=== PATIENT | female | born 1960 | race Caucasian/White ===

== ENCOUNTER 2016-08-24 09:56 | Inpatient (IN) | payer OTHER ==
[~2016-08-24] VITALS: Ht 157.5 cm; Wt 92.3 kg
[2016-08-24] VITALS (10 sets, daily range): BP systolic 141–164; BP diastolic 73–93; PULSE 87–111; RESP 16–20; TEMP 97.3–97.6; O2SAT 91–95; Ht 157.5 cm; Wt 92.3 kg
[~2016-08-24 09:56] MED LIST: CALC-586 PO; CITA-49 PO; LOSA50TA52 PO; OMEP20CA10 PO; PRAV40TA46 PO; [UNRECOGNIZED DRUG - CODE] PO
--- NOTE | 2016-08-24 10:00 | NUR ---
PROVIDER DR. VICTOR AT BEDSIDE FOR EXAM.
--- OUTSIDE RECORDS SUMMARY | 2016-08-24 10:02 | XMS REPORT | Referral Summary ---
Author Author [facility] Organization [facility] Address Unknown Phone Unavailable Care Team Providers Care Machine Steak Tenderizer Name Role Phone Alicia Sommers Primary Care Physician [phone] Encounter [facility] [id number] Date(s): 07/09/16 - 07/09/16 [facility] [address] [place] [id number] Discharge Diagnosis: Anxiety Discharge Diagnosis: Depression Discharge Diagnosis: Well adult exam Discharge Diagnosis: Need for hepatitis A vaccination Discharge Diagnosis: CELESTINA on CPAP Discharge Diagnosis: Impaired fasting blood sugar Discharge Diagnosis: Hyperlipidemia Discharge Disposition: 01-Home or Self Care Attending Physician: Jeremias Sommers MD Admitting Physician: Jeremias Sommers MD Vital Signs Most recent to 1 oldest [Reference Range]: Temperature Tympanic 36.4 degC [36.6-38.1 degC] *LOW* (07/09/16 7:43 AM) Peripheral Pulse 80 bpm Rate [60-100 bpm] (07/09/16 7:43 AM) Blood Pressure 148/90 mmHg [90-140/60-90 mmHg] *HI* (07/09/16 7:43 AM) Problem List Condition Effective Dates Status Health Status Informant Allergic Active rhinitis(Confirmed) Encephalitis(Confirm Active ed) Anxiety(Confirmed) Active History of broken Active leg(Confirmed) History of Active UTI(Confirmed) Hypertension(Confirm Active ed) IBS(Confirmed) Active Ear Active infection(Confirmed) Menopausal Resolved symptoms(Confirmed) Hyperlipidemia(Confi Active rmed) Obstructive sleep Active apnea(Confirmed) Overweight(Confirmed Active ) Depression(Confirmed Active ) Skin tags(Confirmed) Active Thyroid Resolved disease(Confirmed) Chicken Active pox(Confirmed) Allergies, Adverse Reactions, Alerts Substance Reaction Severity Status acetaminophen Hives Active codeine Hives Active Latex Active levofloxacin Hives Active meperidine Hives Active morphine Hives Active oxyCODONE Hives Active Medications Calcium 600+D 2 tabs, Oral, Daily, 0 Refill(s) Start Date: 11/05/13 Status: Ordered escitalopram 20 mg oral tablet 20 mg 1 tabs, Oral, Daily, # 90 tabs, 3 Refill(s), Pharmacy: [id number] [id number], 1 tabs Oral Daily,x90 days Start Date: 10/28/15 Stop Date: 10/22/16 Status: Ordered estradiol 1 mg oral tablet See Instructions, TAKE 1 TABLET BY MOUTH DAILY, # 90 tabs, 3 Refill(s), eRx: [facility] [id number] Start Date: 07/09/16 Status: Ordered LORazepam 0.5 mg oral tablet 0.5 mg 1 tabs, Oral, q6hr, as needed for anxiety, [facility] pharmacy, # 30 tabs , 0 Refill(s) Start Date: 01/04/16 Status: Ordered losartan 100 mg oral tablet See Instructions, 1 TABS ORAL DAILY,INSTR:PT IS DUE FOR APPOINTMENT NO MORE REFILLS UNTIL SEEN, # 90 tabs, 3 Refill(s), Pharmacy: [facility] [id number] , 1 TABS ORAL DAILY,INSTR:PT IS DUE FOR APPOINTMENT NO MORE REFILLS UNTIL SEEN Start Date: 10/19/14 Status: Ordered omeprazole 20 mg oral delayed release capsule See Instructions, TAKE 1 CAPSULE BY MOUTH DAILY, # 90 caps, eRx: [facility] [id number] Start Date: 05/28/16 Status: Ordered pravastatin 40 mg oral tablet See Instructions, TAKE 1 TABLET BY MOUTH DAILY, # 90 tabs, 3 Refill(s), eRx: [facility] [id number] Start Date: 07/09/16 Status: Ordered propylthiouracil 50 mg oral tablet 50 mg 1 tabs, Oral, Daily, 0 Refill(s) Start Date: 11/05/13 Status: Ordered Tylenol Extra Strength 1,000 mg, Oral, BID, as needed for right wrist pain, 0 Refill(s) Start Date: 01/27/16 Status: Ordered Results Chemistry Most recent to 1 oldest [Reference Range]: Chol [0-199 mg/dL] 198 mg/dL (07/09/16 9:20 AM) Trig [0-149 mg/dL] 156 mg/dL *HI* (07/09/16 9:20 AM) HDL [40-84 mg/dL] 56 mg/dL (07/09/16 9:20 AM) LDL [0-130 mg/dL] 111 mg/dL (07/09/16 9:20 AM) VLDL Cholesterol 31 mg/dL [0-28 mg/dL] *HI* (07/09/16 9:20 AM) Cardiac Risk 3.5 [0.0-5.0] (07/09/16 9:20 AM) Hgb A1c [4.1-5.6 %] 5.9 % *HI* (07/09/16 9:20 AM) eAvg Glucose 122.6 mg/dL (07/09/16 9:20 AM) Immunizations Given and Recorded Vaccine Date Status Refusal Reason hepatitis A adult vaccine 07/09/16 Given influenza virus vaccine, inactivated 12/03/11 Recorded influenza virus vaccine, inactivated 01/16/11 Recorded influenza virus vaccine, live 02/18/13 Given influenza virus vaccine, live 02/08/12 Given Procedures Procedure Date Related Diagnosis Body Site Collection of venous blood by venipuncture 07/09/16 Colonoscopy 2006 Esophagogastroduodenoscopy 2006 Kendra fundoplication 1999 Cholecystectomy Hernia repair Hysterectomy Removal of hardware (L) [place]ia Social History Social History Type Response Smoking Status Never smoker Assessment and Plan Extracted from: Title: Ambulatory Patient Education Author: Jeremias Sommers MD Date: 07/09 Preventive Medicine Health Maintenance, Female Adopting a healthy lifestyle and getting preventive care can go a long way to promote health and wellness. Talk with your health care provider about what schedule of regular examinations is right for you. This is a good chance for you to check in with your provider about disease prevention and staying healthy. In between checkups, there are plenty of things you can do on your own. Experts have done a lot of research about which lifestyle changes and preventive measures are most likely to keep you healthy. Ask your health care provider for more information. WEIGHT AND DIET Eat a healthy diet Be sure to include plenty of vegetables, fruits, low-fat dairy products, and lean protein. Do not eat a lot of foods high in solid fats, added sugars, or salt. Get regular exercise. This is one of the most important things you can do for your health. Most adults should exercise for at least 150 minutes each week. The exercise should increase your heart rate and make you sweat (moderate-intensity exercise). Most adults should also do strengthening exercises at least twice a week. This is in addition to the moderate-intensity exercise. Maintain a healthy weight Body mass index (BMI) is a measurement that can be used to identify possible weight problems. It estimates body fat based on height and weight. Your health care provider can help determine your BMI and help you achieve or maintain a healthy weight. For females 20 years of age and older: A BMI below 18.5 is considered underweight. A BMI of 18.5 to 24.9 is normal. A BMI of 25 to 29.9 is considered overweight. A BMI of 30 and above is considered obese. Watch levels of cholesterol and blood lipids You should start having your blood tested for lipids and cholesterol at 20 years of age, then have this test every 5 years. You may need to have your cholesterol levels checked more often if: Your lipid or cholesterol levels are high. You are older than 50 years of age. You are at high risk for heart disease. CANCER SCREENING Lung Cancer Lung cancer screening is recommended for adults 5580 years old who are at high risk for lung cancer because of a history of smoking. A yearly low-dose CT scan of the lungs is recommended for people who: Currently smoke. Have quit within the past 15 years. Have at least a [id number] history of smoking. A pack year is smoking an average of one pack of cigarettes a day for 1 year. Yearly screening should continue until it has been 15 years since you quit. Yearly screening should stop if you develop a health problem that would prevent you from having lung cancer treatment. Breast Cancer Practice breast self-awareness. This means understanding how your breasts normally appear and feel. It also means doing regular breast self-exams. Let your health care provider know about any changes, no matter how small. If you are in your 20s or 30s, you should have a clinical breast exam ( CBE) by a health care provider every 13 years as part of a regular health exam. If you are 40 or older, have a CBE every year. Also consider having a breast X-ray (mammogram) every year. If you have a family history of breast cancer, talk to your health care provider about genetic screening. If you are at high risk for breast cancer, talk to your health care provider about having an MRI and a mammogram every year. Breast cancer gene (BRCA) assessment is recommended for women who have family members with BRCA-related cancers. BRCA-related cancers include: Breast. Ovarian. Tubal. Peritoneal cancers. Results of the assessment will determine the need for genetic counseling and BRCA1 and BRCA2 testing. Cervical Cancer Your health care provider may recommend that you be screened regularly for cancer of the pelvic organs (ovaries, uterus, and vagina). This screening involves a pelvic examination, including checking for microscopic changes to the surface of your cervix (Pap test). You may be encouraged to have this screening done every 3 years, beginning at age 21. For women ages 3065, health care providers may recommend pelvic exams and Pap testing every 3 years, or they may recommend the Pap and pelvic exam, combined with testing for human papilloma virus (HPV), every 5 years. Some types of HPV increase your risk of cervical cancer. Testing for HPV may also be done on women of any age with unclear Pap test results. Other health care providers may not recommend any screening for non women who are considered low risk for pelvic cancer and who do not have symptoms. Ask your health care provider if a screening pelvic exam is right for you. If you have had past treatment for cervical cancer or a condition that could lead to cancer, you need Pap tests and screening for cancer for at least 20 years after your treatment. If Pap tests have been discontinued, your risk factors (such as having a new sexual partner) need to be reassessed to determine if screening should resume. Some women have medical problems that increase the chance of getting cervical cancer. In these cases, your health care provider may recommend more frequent screening and Pap tests. Colorectal Cancer This type of cancer can be detected and often prevented. Routine colorectal cancer screening usually begins at 50 years of age and continues through 75 years of age. Your health care provider may recommend screening at an earlier age if you have risk factors for colon cancer. Your health care provider may also recommend using home test kits to check for hidden blood in the stool. A small camera at the end of a tube can be used to examine your colon directly (sigmoidoscopy or colonoscopy). This is done to check for the earliest forms of colorectal cancer. Routine screening usually begins at age 50. Direct examination of the colon should be repeated every 510 years through 75 years of age. However, you may need to be screened more often if early forms of precancerous polyps or small growths are found. Skin Cancer Check your skin from head to toe regularly. Tell your health care provider about any new moles or changes in moles, especially if there is a change in a mole's shape or color. Also tell your health care provider if you have a mole that is larger than the size of a pencil eraser. Always use sunscreen. Apply sunscreen liberally and repeatedly throughout the day. Protect yourself by wearing long sleeves, pants, a wide-brimmed hat, and sunglasses whenever you are outside. HEART DISEASE, DIABETES, AND HIGH BLOOD PRESSURE High blood pressure causes heart disease and increases the risk of stroke. High blood pressure is more likely to develop in: People who have blood pressure in the high end of the normal range (130 139/8589 mm Hg). People who are overweight or obese. People who are . If you are 1839 years of age, have your blood pressure checked every 3 5 years. If you are 40 years of age or older, have your blood pressure checked every year. You should have your blood pressure measured twiceonce when you are at a hospital or clinic, and once when you are not at a hospital or clinic. Record the average of the two measurements. To check your blood pressure when you are not at a hospital or clinic, you can use: An automated blood pressure machine at a pharmacy. A home blood pressure monitor. If you are between 55 years and 79 years old, ask your health care provider if you should take aspirin to prevent strokes. Have regular diabetes screenings. This involves taking a blood sample to check your fasting blood sugar level. If you are at a normal weight and have a low risk for diabetes, have this test once every three years after 45 years of age. If you are overweight and have a high risk for diabetes, consider being tested at a younger age or more often. PREVENTING INFECTION Hepatitis B If you have a higher risk for hepatitis B, you should be screened for this virus. You are considered at high risk for hepatitis B if: You were born in a country where hepatitis B is common. Ask your health care provider which countries are considered high risk. Your parents were born in a high-risk country, and you have not been immunized against hepatitis B (hepatitis B vaccine). You have HIV or AIDS. You use needles to inject street drugs. You live with someone who has hepatitis B. You have had sex with someone who has hepatitis B. You get hemodialysis treatment. You take certain medicines for conditions, including cancer, organ transplantation, and autoimmune conditions. Hepatitis C Blood testing is recommended for: Everyone born from 1945 through 1965. Anyone with known risk factors for hepatitis C. Sexually transmitted infections (STIs) You should be screened for sexually transmitted infections (STIs) including gonorrhea and chlamydia if: You are sexually active and are younger than 24 years of age. You are older than 24 years of age and your health care provider tells you that you are at risk for this type of infection. Your sexual activity has changed since you were last screened and you are at an increased risk for chlamydia or gonorrhea. Ask your health care provider if you are at risk. If you do not have HIV, but are at risk, it may be recommended that you take a prescription medicine daily to prevent HIV infection. This is called pre- exposure prophylaxis (PrEP). You are considered at risk if: You are sexually active and do not regularly use condoms or know the HIV status of your partner(s). You take drugs by injection. You are sexually active with a partner who has HIV. Talk with your health care provider about whether you are at high risk of being infected with HIV. If you choose to begin PrEP, you should first be tested for HIV. You should then be tested every 3 months for as long as you are taking PrEP. If you are premenopausal and you may become , ask your health care provider about preconception counseling. If you may become , take 400 to 800 micrograms (mcg) of folic acid every day. If you want to prevent , talk to your health care provider about control (contraception). OSTEOPOROSIS AND MENOPAUSE Osteoporosis is a disease in which the bones lose minerals and strength with aging. This can result in serious bone fractures. Your risk for osteoporosis can be identified using a bone density scan. If you are 65 years of age or older, or if you are at risk for osteoporosis and fractures, ask your health care provider if you should be screened. Ask your health care provider whether you should take a calcium or vitamin D supplement to lower your risk for osteoporosis. Menopause may have certain physical symptoms and risks. Hormone replacement therapy may reduce some of these symptoms and risks. Talk to your health care provider about whether hormone replacement therapy is right for you. HOME CARE INSTRUCTIONS Schedule regular health, dental, and eye exams. Stay current with your immunizations. Do not use any tobacco products including cigarettes, chewing tobacco, or electronic cigarettes. If you are , do not drink alcohol. If you are , limit how much and how often you drink alcohol. Limit alcohol intake to no more than 1 drink per day for non women. One drink equals 12 ounces of beer, 5 ounces of wine, or 1 ounces of hard liquor. Do not use street drugs. Do not share needles. Ask your health care provider for help if you need support or information about quitting drugs. Tell your health care provider if you often feel depressed. Tell your health care provider if you have ever been abused or do not feel safe at home. This information is not intended to replace advice given to you by your health care provider. Make sure you discuss any questions you have with your health care provider. Document Released: 11/19/2011 Document Revised: 05/27/2015 Document Reviewed: [employer] Patient Education 2016 [employer] No follow up information was provided. Extracted from: Title: Female Physical Author: Jeremias Sommers MD Date: 07/09/16 Impression and Plan Diagnosis Well adult exam ([id number] Z00.00, Discharge, Medical). Hyperlipidemia ([id number] E78.2, Discharge, Medical). Depression (MEK59-QA F33.1, Discharge, Medical). Anxiety (RWM55-BK F41.1, Discharge, Medical). CELESTINA on CPAP ([id number] G47.33, Discharge, Medical). Need for hepatitis A vaccination ([id number] Z23, Discharge, Medical). Impaired fasting blood sugar (SYI46-BM R73.01, Discharge, Medical). Plan: 1) Healthy diet and daily exercise helps most things. 2) Continue your current meds. 3) Hepatitis A Vaccine #1 given today. 4) See me in 6 months and as needed. 5) Fasting lab ordered today. 6) Schedule screening mammograms at the hospital.. Orders Orders (Selected) Outpatient Orders Ordered Periodic Comp Preventive Med 40 to 64 years Est [id number]: hepatitis A adult vaccine 1440 units/mL preservative free intramuscular suspension: 1 mL, IntraMuscular, Once Future (On Hold) Fasting Lipid Profile: Hgb A1c: . Dx/Order Association Plan: Diagnosis: Anxiety Comment: Diagnosis: Depression Comment: Diagnosis: Hyperlipidemia Comment: Diagnosis: Impaired fasting blood sugar Comment: Diagnosis: Need for hepatitis A vaccination Comment: Ordered: hepatitis A adult vaccine 1440 units/mL preservative free intramuscular suspension; 1 mL, IntraMuscular, Once, First Dose: 07/09/16 9 :00:00 SUPERVISOR LATHING, Stop Date: 07/09/16 9:00:00 SUPERVISOR LATHING, Form: Vial Diagnosis: CELESTINA on CPAP Comment: Diagnosis: Well adult exam Comment: Ordered: hepatitis A adult vaccine 1440 units/mL preservative free intramuscular suspension; 1 mL, IntraMuscular, Once, First Dose: 07/09/16 9 :00:00 SUPERVISOR LATHING, Stop Date: 07/09/16 9:00:00 SUPERVISOR LATHING, Form: Vial Periodic Comp Preventive Med 40 to 64 years Est [id number]; 07/09/16 8:38:00 SUPERVISOR LATHING, Well adult exam Diagnosis: Well adult exam Comment: Diagnosis: Impaired fasting blood sugar Comment: Diagnosis: Well adult exam Comment: Diagnosis: Hyperlipidemia Comment: End of Orders .
--- OUTSIDE RECORDS SUMMARY | 2016-08-24 10:02 | XMS REPORT | Continuity of Care Document ---
Author Author [facility] Organization [facility] Address Unknown Phone Unavailable Support Name Relationship Address Phone STEPHEN HOWARD FACS, MD Caregiver [address] [place] [address] [place] [address] Unavailable KELLEY VASQUEZ MD Caregiver [address] [place] [address] [place] [address] Unavailable ATTDEMAR CANTOR Next Of Kin [address] [place] [address] C Insurance Providers Guarantor Mally Murillo Address [address] [place], [place] [id number] Email DENIED [facility] Policy Number [id number] Subscriber's Name Demar Murillo Relationship 01 Spouse Group Number [id number] Advance Directives Directive Response Recorded Date/Time Ordered Resuscitation Status Full Code 07/19/16 3:36pm Resuscitation Documents on File No 07/20/16 6:54am DPOA for Healthcare Only No 07/20/16 6:54am Living Will No 07/20/16 6:54am Problems No problem information available. Medications Current Home Medications Medication Dose Units Route Directions Days Qty Instructions Start Date Calcium Carbonate/Vitamin D3 (Calcium + D 600 Mg Tablet) 1 Tab Tablet 1 Tab Oral Daily 02/22/10 Citalopram Hydrobromide (Celexa) 20 Mg Tablet 20 Mg Oral Daily Losartan Potassium 50 Mg Tablet 50 Mg Oral Daily 07/19/16 Omeprazole 20 Mg Capsule. 20 Mg Oral Before Breakfast Take 1 capsule, by mouth, one time a day (before breakfast). 07/19/16 Pravastatin Sodium 40 Mg Tablet 40 Mg Oral Bedtime 02/22/10 Propylthiouracil 50 Mg Tablet 50 Mg Oral Daily 02/22/10 Social History Social History Problem Response Recorded Date/Time Onset Date Status Reason for Hospitalization EGD colonoscopy 07/20/2016 9:59am Not Applicable Not Applicable Chewing Tobacco Status No 07/19/2016 10:06am Not Applicable Not Applicable Hx Substance Use No 02/21/2010 7:55am Not Applicable Not Applicable Hx Alcohol Use Y OCC 02/21/2010 7:55am Not Applicable Not Applicable Has the pt used tobacco in the last 12 months No 07/19/2016 10:06am Not Applicable Not Applicable Query Response Start Date Stop Date Smoking Status Never smoker Hospital Discharge Instructions Instructions: Care Instructions: I was in the hospital because (patient own words): "colonoscopy and egd" Discharge Diet: As Tolerated Discharge Activity: Do NOT drive today Follow Up Appointments: Follow up with Dr. Howard as needed. Pending Lab / Results: No Pending Lab Patient Instructions: Letter with recommendations will be mailed in about 2 weeks. Expected Signs/Symptoms: None Notify Physician If: Call physician if temperature is GREATER than 101.5, severe abdominal pain or severe rectal bleeding. During Business Hours:: Call [phone] After Business Hours:: Call [phone] (hospital) Pain Management/Treatment: Call Dr. Howard if increasing abdominal pain Wound/Incision Care: N/A Condition at time of discharge: Good Plan of Care Discharge Date 07/20/16 10:35am Instructions/Education Provided [facility] Prescriptions See Medication Section Functional Status Query Response Date Recorded Ability to complete ADL's impeded by No change July 20, 2016 6:54am Allergies, Adverse Reactions, Alerts Allergen Type Severity Reaction Status Last Updated meperidine HCl Allergy Intermediate ITCH,RED Active 07/20/16 oxycodone HCl Allergy Intermediate HIVES Active 07/20/16 Morphine Allergy Intermediate RED,ITCHING Active 07/20/16 Codeine Allergy Intermediate HIVES Active 07/20/16 Acetaminophen Allergy Intermediate HIVES Active 07/20/16 Methimazole Allergy Intermediate HIVES,ITCH Active 07/20/16 Latex Allergy Intermediate PINK EYE, ASTHMA LIKE REACTION, SOA Active 08/03 Immunizations Query Response on File Recorded Date/Time Hx Influenza Vaccination Y 03/2802/21/10 7:55am Hx Pneumococcal Vaccination No 02/21/10 7:55am Hx Influenza Vaccination Y 03/2802/21/10 7:55am Vital Signs Acute Vital Signs Vital Response Date/Time Temperature (Fahrenheit) 98.4 deg F (96.8 - 99.1) 07/20/2016 10:21am Temperature (Calculated Celsius) 36.40903 degrees C (36.0 - 37.3) 07/20/2016 10:21am Temperature Source Temporal 07/20/2016 10:21am Pulse Rate (adult) 82 bpm (60 - 100) 07/20/2016 10:21am Respiratory Rate 18 breaths/min (10 - 20) 07/20/2016 10:21am O2 Sat by Pulse Oximetry 94 % (90 - 100) 07/20/2016 10:21am Oxygen Delivery Method Room Air 07/20/2016 10:21am Blood Pressure 151/65 mm Hg 07/20/2016 10:21am Blood Pressure Source Automatic Cuff 07/20/2016 10:21am Height (Feet) 5 feet 07/20/2016 6:50am Height (Inches) 2.00 inches 07/20/2016 6:50am Weight (Kilograms) 92.500 kg 07/20/2016 6:50am Body Mass Index (BMI) 37.3 07/20/2016 6:50am Results Laboratory Results Test Name Result Units Flags Reference Collection Date/Time Result Date/ Time Comments Free Thyroxine 0.85 NG/DL 0.78-2.19 07/06/2016 10:52am 07/09/2016 1: 05am Thyroid Stimulating Hormone (TSH) 0.83 MIU/L 0.47-4.68 07/06/2016 10: 52am 07/06/2016 11:37am Procedures Procedure Status Date Provider(s) Routine venipuncture Completed 07/06/16 Assay of free thyroxine Completed 07/06/16 Assay thyroid stim hormone Completed 07/06/16 Colonoscopy Completed 07/20/16 STEPHEN HOWARD MD, JOSE, MARKELS Esophagogastroduodenoscopy (EGD) with closed biopsy Completed 07/20/16 STEPHEN HOWARD MD, MARKEL GARCIAS Encounters Encounter Location Arrival/Admit Date Discharge/Depart Date Attending Provider Departed [facility] 07/20/16 6:28am 07/20/16 10 :35am STEPHEN HOWARD FACS, MD Registered [facility] 07/18/16 8:46am [facility] 07/06/16 10:39am MARINE KOWALSKI MD
--- OUTSIDE RECORDS SUMMARY | 2016-08-24 10:02 | XMS REPORT | Referral Summary ---
Author Author [facility] [place] Organization [facility] [place] Address Unknown Phone Unavailable Care Team Providers Care Telehealth Nurse Educator Name Role Phone Alicia Sommers Primary Care Physician [phone] Encounter VC Date(s): 02/24/16 - 02/24/16 [facility] [place] [address] [place], [place] [address] Discharge Disposition: 01-Home or Self Care Attending Physician: Facundo Chilel MD Admitting Physician: Facundo Chilel MD Referring Physician: Facundo Chilel MD Vital Signs No data available for this section Problem List Condition Effective Dates Status Health [...] morphine Hives Active oxyCODONE Hives Active Medications Nathaniel Aspirin 81 mg, Oral, Daily, 0 Refill(s) Start Date: 11/05/13 Status: Ordered Calcium 600+D 2 tabs, Oral, Daily, 0 Refill(s) Start Date: 11/05/13 Status: Ordered escitalopram 20 mg oral tablet 20 mg 1 tabs, Oral, Daily, # 90 tabs, 3 Refill(s), Pharmacy: [id number], 1 tabs Oral Daily,x90 days Start Date: 10/28/15 Stop Date: 10/22/16 Status: Ordered estradiol 1 mg oral tablet 1 mg 1 tabs, Oral, Daily, # 30 tabs, 2 Refill(s), other reason (Rx), TAKE 1 TABLET BY MOUTH EVERY DAY. Start Date: 01/27/16 Status: Ordered LORazepam 0.5 mg oral tablet 0.5 mg 1 tabs, Oral, q6hr, as needed for anxiety, [facility], # 30 tabs , 0 Refill(s) Start Date: 01/04/16 Status: Ordered losartan 100 mg oral tablet See Instructions, 1 TABS ORAL DAILY,INSTR:PT IS DUE FOR APPOINTMENT NO MORE REFILLS UNTIL SEEN, # 90 tabs, 3 Refill(s), Pharmacy: [facility] [id number] , 1 TABS ORAL DAILY,INSTR:PT IS DUE FOR APPOINTMENT NO MORE REFILLS UNTIL SEEN Start Date: 10/19/14 Status: Ordered [place] 5 mg-325 mg oral tablet 1 tabs, Oral, Daily, as needed for right wrist pain, 0 Refill(s) Start Date: 01/27/16 Status: Ordered pravastatin 40 mg oral tablet See Instructions, TAKE 1 TABLET BY MOUTH DAILY, # 90 tabs, eRx: [email or web address] [id number], TAKE 1 TABLET BY MOUTH DAILY Start Date: 01/17/16 Status: Ordered propylthiouracil 50 mg oral tablet 50 mg 1 tabs, Oral, Daily, 0 Refill(s) Start Date: 11/05/13 Status: Ordered Tylenol Extra Strength 1,000 mg, Oral, TID, as needed for right wrist pain, 0 Refill(s) Start Date: 01/27/16 Status: Ordered Results No data available for this section Immunizations Vaccine Date Refusal Reason influenza virus vaccine, inactivated 12/03/11 influenza virus vaccine, inactivated 01/16/11 influenza virus vaccine, live 02/18/13 influenza virus vaccine, live 02/08/12 Procedures Procedure Date Related Diagnosis Body Site Colonoscopy 2007 Cholecystectomy Esophagogastroduodenoscopy Hernia repair Hysterectomy Removal of hardware (L) [place] Social History Social History Type Response Smoking Status Never smoker Assessment and Plan No data available for this section
[2016-08-24] MEDS ORDERED: FAMOTIDINE 20 MG in NORMAL SALINE 50 ML IV ONE (10:15)
[2016-08-24] MEDS ORDERED: DiphenhydrAMINE 50 MG/ML INJECTION IV ONE (10:15)
[2016-08-24] MEDS ORDERED: NS 50ML IV PRN (10:30)
[2016-08-24 10:43] LABS: BASOPHILS % (AUTO) 0.2 % (0-2); EOSINOPHILS % (AUTO) 0.3 % (0-4); HCT - HEMATOCRIT 40.9 % (36-46); HGB - HEMOGLOBIN 13.1 GM/DL (12-16); IMMATURE GRANULOCYTE # (AUTO) 0.04 T/MM3 (0.00-0.03); IMMATURE GRANULOCYTE % (AUTO) 0.4 % (0.0-0.5); LYMPHOCYTES # (AUTO) 1.4 T/MM3 (1-4.8); LYMPHOCYTES % (AUTO) 12.6 % (23-45); MEAN CORPUSCULAR HGB 29.8 UUG (26-34); MEAN CORPUSCULAR VOLUME 93.2 UM3 (80-100); MEAN PLATELET VOLUME 9.4 UM3 (9.4-12.4); MONOCYTES # (AUTO) 0.4 T/MM3 (0-0.8); MONOCYTES % (AUTO) 3.5 % (0-9.0); NEUTROPHILS #(AUTO)-ABSOLUTE 9.3 T/MM3 (1.8-7.7); RED BLOOD COUNT 4.39 M/MM3 (4.00-5.20); WBC - WHITE BLOOD COUNT 11.2 T/MM3 (4.5-11.0)
[2016-08-24] MEDS ORDERED: ALBU18HF2 ORAL INH (10:45)
[2016-08-24] MEDS ORDERED: AMLO5TAB2 PO (10:46)
[2016-08-24] MEDS ORDERED: ESCI20TA30 PO (10:47)
[2016-08-24 10:51] LABS: ALBUMIN 4.1 G/DL (3.5-5.0); ALBUMIN/GLOBULIN RATIO 1.4 RATIO (1.1-2.2); ALKALINE PHOSPHATASE 60 U/L (38-126); ALT (SGPT) 28 U/L (9-52); ANION GAP 19 MEQ/L (5-15); AST (SGOT) 24 U/L (14-36); BUN/CREATININE RATIO 18 RATIO (6-26); CALCIUM 9.6 MG/DL (8.4-10.2); CHLORIDE 105 MEQ/L (98-107); CO2 - CARBON DIOXIDE 18 MEQ/L (22-30); CREATININE 0.8 MG/DL (0.7-1.2); GLOMERULAR FILTRATION RATE 75; GLUCOSE 223 MG/DL (65-110); POTASSIUM 3.6 MEQ/L (3.6-5); SODIUM 142 MEQ/L (134-144)
[2016-08-24] MEDS ORDERED: GUAI-1166 PO (10:52)
[2016-08-24] MEDS ORDERED: ESTR1TAB21 PO (10:52)
[2016-08-24] MEDS ORDERED: IBUP-1724 PO (10:53)
[2016-08-24] MEDS ORDERED: LOSA100T44 PO (10:54)
[2016-08-24] MEDS ORDERED: LORA0.5T2 PO (10:54)
[2016-08-24] MEDS ORDERED: PRED20TA PO (10:57)
--- NOTE | 2016-08-24 11:10 | NUR ---
XRAY PORTABLE XRAY AT BEDSIDE.
--- NOTE | 2016-08-24 11:19 | ERPDOC ---
Departure Disposition Decision Date: Aug 25, 2016 Disposition Decision Time: 12:40 Disposition: 02 TO [facility] Impression Impression Impression: Primary Impression: Allergic reaction Encounter type: initial encounter Qualified Codes: T78.40XA - Allergy, unspecified, initial encounter Severity: Moderate Condition: Improved Seen By: Physician only Referrals: KELLEY VASQUEZ MD (Family) Problems/Meds/Labs Reviewed?: Yes Medications reviewed and manag: Yes Follow up care ordered?: Yes Mental Status: Alert, Oriented HPI - General Medical General Chief Complaint: Dyspnea/Respdistress Stated Complaint: SOA,COUGH, Time Seen by Provider: 10:11 Source: patient, family Exam Limitations: no limitations HPI - General Medical Initial Comments 55-year-old female presents to the emergency department with the chief complaint of shortness of breath and coughing. Patient states that she has a severe ALLERGY to latex and was exposed to latex "a couple of days ago". She states these symptoms are typical of when she has a severe latex reaction. Patient denies any current pain or discomfort but does note to be short of breath. She was at home when her symptoms began. Symptoms have been persistent in nature with a gradual progression since onset. She was seen at her primary care physician's office earlier this morning and sent to the emergency department for further evaluation and treatment. Patient denies any other complaints or associated symptoms. Occurred At: home Onset: Gradual Allergies: Coded Allergies: codeine (Verified Allergy, Intermediate, HIVES, 08/24/16) latex (Verified Allergy, Intermediate, PINK EYE, ASTHMA LIKE REACTION, SOA , 08/24/16) meperidine HCl (Verified Allergy, Intermediate, ITCH,RED, 08/24/16) methimazole (Verified Allergy, Intermediate, HIVES,ITCH, 08/24/16) morphine (Verified Allergy, Intermediate, RED,ITCHING, 08/24/16) oxycodone HCl (Verified Allergy, Intermediate, HIVES, 08/24/16) Past History Past Medical History ENMT: allergies Surgical History Denies Surgeries Family History Family History: Negative Vaccines Hx Influenza Vaccination: Yes (03/28) Hx Pneumococcal Vaccination: No Social History Smoking Status: Never smoker Substance Use Type: does not use Alcohol Intake: none Review of Systems Constitutional Constitutional: DENIES: chills, fever Eyes General: DENIES: erythema, exudate Lids/Accessories: DENIES: erythema, swelling Vision: DENIES: acuity, blurring ENMT Ears: DENIES: drainage, erythema Hearing: DENIES: hearing loss Balance: DENIES: ataxia, falling to one side Sinuses: DENIES: congestion, pain Nose: DENIES: nosebleeds, pain Mouth/Throat: DENIES: painful swallowing, sore throat Teeth: DENIES: pain Jaw: DENIES: pain Cardiovascular Cardiac: DENIES: chest pain, dyspnea on exertion Rhythm/Rate: DENIES: irregular beat, palpitations Vascular: DENIES: pedal edema, unilateral swelling Pulmonary Respiratory: cough, dyspnea, DENIES: pleuritic chest pain, sputum GI Upper Abdomen: DENIES: nausea, pain, vomiting Lower Abdomen: DENIES: diarrhea, pain General: DENIES: dysuria, frequency Musculoskeletal General: DENIES: joint pain, tenderness Integumentary Skin: DENIES: itching, rash Neurological General: DENIES: headache, numbness, weakness Psychiatric Psychiatric: DENIES: emotional instability, suicidal ideation/attempt Endocrine Endocrine: DENIES: polydipsia, polyphagia Hematologic/Lymphatic Hematologic/Lymphatic: DENIES: frequent nosebleeds, lymphadenopathy Allergic/Immunological Allergic/Immunoligical: allergic reactions, DENIES: hives Physical Exam General General Nourishment: well nourished, well developed, appears stated age, no acute distress, adult General Body Habitus: well groomed Vitals and Pain First Documented Vital Signs Date Time Temp Pulse Resp B/P Pulse Ox O2 Delivery O2 Flow Rate FiO2 08/24/16 09:57 96.8 129 24 151/103 98 Room Air Weight: Kilograms: 89.500 Height (feet): 5 Height (inches): 2.00 Triage Pain Scale: RN VS reviewed by Provider: Yes Normal Exams: Head: Normocephalic w/o trauma Eyes: Pupils are PERRLA w/ EOMI, No scleral icterus, irritation, or foreign bodies noted ENMT: No facial trauma, nasal exudates, pharyngeal erythema, or exudates are noted Dental: No fractured, loose, or missing teeth noted Neck: Full range of motion, without adenopathy, JVD, bruits or thyromegaly Chest/Resp: Clear all hurley, with good airflow, and symmetry bilaterally CV: Regular rate and rhythm, without murmur or gallop, Pulses 2+ all extremities, capillary refill, <2 seconds all ext., no pedal edema noted Abdomen: Bowel sounds positive, soft, non-tender, non-distended, no hepatosplenomegaly, masses or bruits noted Lymphatic: No lymphadenopathy, or lymphedema noted Musculoskeletal: No tenderness, or deformity noted, good range of motion, all extremities Integumentary: No rashes, hives, or bruising noted, hair and nails, without abnormality Neurologic: Patient is alert, and oriented, cranial nerves, motor/sensory/ cerebellar, exams w/o gross deficits, to observation Psychiatric: Patient exhibits, appropriate attention, emotion and affect Respiratory (brief) Comments BiLateral end expiratory wheezes. Differential Diagnoses Considering: Other (ALLERGIC reaction/acute bronchitis/anxiety/pneumonia) Progress Results/Orders Orders Procedure Category Date Status Time Cbc W/Auto LAB 08/24/16 Complete Diff-Reflex Manual Cmp - Comprehensive LAB 08/24/16 Complete Metabolic Troponin I W LAB 08/24/16 Complete Hemolysis Index EKG EKG 08/24/16 Taken Chest 1 View RAD 08/24/16 Resulted 10:12 Methylprednisolone PHA 08/24/16 Complete Sod Succ (Solu-Medrol 10:15 Famotidine (Pepcid 20 PHA 08/24/16 Complete Mg Inj.) 10:15 Diphenhydramine PHA 08/24/16 Complete (Benadryl) 10:15 Normal Saline (Ns) PHA 08/24/16 In Process 10:30 Iv Lock (Ed Only) EDM 08/24/16 Transmitted 10:47 D-Dimer LAB 08/24/16 Complete 12:15 Place In Facility: ED ADM 08/24/16 Transmitted 12:44 Lab Results Laboratory Tests Test 08/24/16 10:37 White Blood Count 11.2T/MM3 Red Blood Count 4.39M/MM3 Hemoglobin 13.1GM/DL Hematocrit 40.9% Mean Corpuscular Volume 93.2UM3 Mean Corpuscular Hemoglobin 29.8UUG Mean Corpuscular Hemoglobin Concent 32.0GM/DL RDW Standard Deviation 45.1FL Platelet Count 312T/MM3 Mean Platelet Volume 9.4UM3 Immature Granulocyte % (Auto) 0.4% Neutrophils (%) (Auto) 83.0% Lymphocytes (%) (Auto) 12.6% Monocytes (%) (Auto) 3.5% Eosinophils (%) (Auto) 0.3% Basophils (%) (Auto) 0.2% Absolute Immature Granulocyte (auto 0.04T/MM3 Absolute Neutrophils (auto) 9.3T/MM3 Absolute Lymphocytes (auto) 1.4T/MM3 Absolute Monocytes (auto) 0.4T/MM3 Absolute Eosinophils (auto) 0.0T/MM3 Absolute Basophils (auto) 0.0T/MM3 D-Dimer < 150NG/ML Turbidity < 20 Sodium Level 142MEQ/L Potassium Level 3.6MEQ/L Chloride Level 105MEQ/L Carbon Dioxide Level 18MEQ/L Anion Gap 19MEQ/L Blood Urea Nitrogen 14.0MG/DL Creatinine 0.8MG/DL Glomerular Filtration Rate Calc 75 BUN/Creatinine Ratio 18RATIO Glucose Level 223MG/DL Hemoglobin A1c 5.8% Calculated Osmolality 281MOSM/KG Calcium Level 9.6MG/DL Total Bilirubin 0.40MG/DL Icterus Index < 2 Aspartate Amino Transf (AST/SGOT) 24U/L Alanine Aminotransferase (ALT/SGPT) 28U/L Alkaline Phosphatase 60U/L Troponin I < 0.012ng/ml Total Protein 7.0G/DL Albumin 4.1G/DL Globulin 2.9G/DL Albumin/Globulin Ratio 1.4RATIO Thyroid Stimulating Hormone (TSH) 1.50MIU/L Chemistry Specimen Hemolysis < 15 Medications Current ED Medications Methylprednisolone Sodium Succinate 125 mg 125 mg O ONCE IV Last administered on 08/24/16 10:22; Start 08/24/16 at 10:15; Stop 08/24/16 at 10:16; Status DC Famotidine/Sodium Chloride (PEPCID 20 mg INJ./NS) 52 ml @ 100 mls/hr O ONCE IV Last administered on 08/24/16 10:28; Start 08/24/16 at 10:15; Stop 08/24/16 at 10:46; Status DC Diphenhydramine HCl (Benadryl) 50 mg O ONCE IV Last administered on 08/24/16 10:25; Start 08/24/16 at 10:15; Stop 08/24/16 at 10:16; Status DC Sodium Chloride (NS) 50 ml PRN PRN IV Last administered on 08/24/16 10:28; Start 08/24/16 at 10:30 Progress Progress Labs/imaging are discussed in detail with the patient and questions are answered. Patient is given nebulized aerosol treatments in the emergency department. She is given Benadryl 50 mg IV times one, she is given Pepcid 20 mg IV 1, and given Solu-Medrol 125 mg IV times one. Patient improves in the emergency department. Due to the severity of the patient's presentation at upon arrival to the emergency department she will be admitted in observation status to the service of Dr. Corey for observation. Patient is in agreement with the current plan of management. EKG EKG : Rate: >100 Rhythm: sinus [place]: normal QRS: normal Intervals: normal ST/T: non-specific changes Interpreted by: signing physician Xray Xray : Xray: CXR Portable Interpretation: Normal OVIDIO VICTRO DO Aug 24, 2016 11:19
--- NOTE | 2016-08-24 11:31 | DI ---
Indication: ITS.REASON: cough PROCEDURE: CHEST 1 VIEW: Encounter: Initial Comparison: None FINDINGS: The lungs are clear. There is no abnormal airspace opacity, pleural effusion or pneumothorax identified. The heart size, pulmonary vasculature and mediastinum are within normal limits. Rounded retrocardiac density probably representing a hiatal hernia. No significant skeletal abnormality is seen. IMPRESSION: No acute cardiopulmonary abnormality. .
--- NOTE | 2016-08-24 11:42 | NUR ---
STATUS PT RESTING MORE COMFORTABLY IN CART. SLIGHT EXPIRATORY WHEEZING STILL NOTED ON EXPIRATION; HOWEVER, HAS IMPROVED. DENIES NEEDS AT THIS TIME. CALL LIGHT WITHIN REACH. VSS, WILL CONTINUE TO MONITOR.
--- NOTE | 2016-08-24 12:20 | NUR ---
STATUS PT CONTINUES TO APPEAR TO BE RESTING COMFORTABLY IN CART. DENIES NEEDS AT THIS TIME. REPORTS BREATHING IS STILL MUCH BETTER THAN ON ARRIVAL. ADVISED WAITING FOR ADDED LAB TO RESULT. CALL LIGHT WITHIN REACH. VSS STABLE, WILL CONTINUE TO MONITOR.
--- NOTE | 2016-08-24 13:03 | NUR ---
REPORT CALLED TO KENNY SÁNCHEZ ON MEDICAL UNIT. DENIES QUESTIONS.
--- NOTE | 2016-08-24 13:13 | NUR ---
ADMIT PT TAKEN TO MEDICAL UNIT, RM 140 BY CART AT THIS TIME.
[2016-08-24] MEDS ORDERED: ALBUTEROL/IPRATROPIUM INHAL. 2.5mg-0.5mg/3ml Neb. AEROSOL ONE (13:45)
[2016-08-24] MEDS ORDERED: BENZONATATE 200 MG CAPSULE PO PRN (13:45)
--- NOTE | 2016-08-24 14:33 | HPPDOC ---
MARJAN ELLER V HUNTER GUIDE 08/24/16 1414: HPI - Adult Date DATE: 08/24/16 TIME: 14:05 General Chief Complaint: Acute dyspnea History of Present Illness Patient is a pleasant 55-year-old female who presented to the emergency room today for evaluation of acute dyspnea. Reported that she was seen by her primary care provider, Dr. Sherman Hidalgo office yesterday for acute dyspnea and wheezing. She was checked for influenza which was negative and started on albuterol and steroids. There was a question if patient was possibly having an allergic reaction and she questioned a possible exposure to latex several days ago. She is also on losartan and which was discontinued yesterday due to questions regarding ARB allergy. She reported that overnight she utilized albuterol inhaler, nebulizer and steroids, however, continued to feel short of breath and was unable to sleep. She presented to the emergency room this morning for further evaluation and treatment. On arrival, she was found to be hyperventilating, room air saturations 98%, pulse 112. Other evaluation including laboratory studies and chest x-ray were obtained. WBC count was found to be 11.2, hemoglobin 13.1, hematocrit 40.9, platelet count 312, neutrophils 83%. Sodium 142, potassium 3.6 , CO2 18, BUN 14, creatinine 0.8, glucose 223. Troponin was undetectable, less than 0.012. D-dimer was found to be negative less than 150. Chest x-ray was obtained showing no acute cardiopulmonary findings. She was given a DuoNeb, Benadryl, Solu-Medrol and Pepcid while in the emergency room. Due to continued dyspnea and concern for potential ALLERGIC reaction. The hospitalist services were contacted and accepted patient for outpatient admission for further evaluation and treatment. Mally is seen on arrival to medical unit exam room. She is alert, oriented and pleasant. She is breathing comfortably on room air without evidence of distress and her room air saturations are 92-93% currently. Have an active dry cough during examination. In reviewing history of present illness. She reports that she began having chills on Saturday, however, did not become more short of breath until yesterday when she presented to her primary care provider. She has noted she has had more seasonal allergy type symptoms this winter, unusual. No chronic lung disease. No history of tobacco use or other pulmonary risk factors. Past Medical History Past Medical History Hypertension Hyperlipidemia Anxiety Depression History of mono with encephalitis- 1989. IBS Obstructive sleep apnea. Hyperthyroidism Hx GI BLeeding- 07/2016 Surgical History Patient's Surgical History: Colonoscopy/EGD- 2006, 2016 Niesen fundoplication-1999 Paraesophageal hernia repair Cholecystectomy Hysterectomy at age 39 Right hand surgery-2015 Current Medications Home Meds Reported Medications Prednisone (Prednisone) 20 Mg Tablet, 60 MG PO TAPER Q3D 08/24/16 Losartan Potassium (Losartan Potassium) 100 Mg Tablet, 100 MG PO DAILY 08/24/16 Lorazepam (Lorazepam) 0.5 Mg Tablet, 0.5 MG PO Q6H Y for ANXIETY 08/24/16 Ibuprofen (Ibuprofen) 200 Mg Tablet, 600 MG PO Q4H Y for PAIN 08/24/16 Guaifenesin/Dextromethorphan (Robitussin Blwcn-Jonco-Pmlv Dm) 1 Each Capsule, 2 CAP PO Q4HR Y for CONSTIPATION 08/24/16 Estradiol (Estrace) 1 Mg Tablet, 1 MG PO DAILY 08/24/16 Escitalopram Oxalate (Escitalopram Oxalate) 20 Mg Tablet, 20 MG PO DAILY 08/24/16 Amlodipine Besylate (Amlodipine Besylate) 5 Mg Tablet, 5 MG PO DAILY 08/24/16 Albuterol Sulfate (Ventolin HFA 90 mcg/actuation) 18 Gm Hfa.aer.ad, 1 PUFF ORAL INH Q4H Y for SHORTNESS OF AIR/WHEEZING 08/24/16 Omeprazole (Omeprazole) 20 Mg Capsule.dr, 20 MG PO ACB 07/19/16 Pravastatin Sodium (Pravastatin Sodium) 40 Mg Tablet, 40 MG PO HS 02/22/10 Propylthiouracil (Propylthiouracil) 50 Mg Tablet, 50 MG PO DAILY 02/22/10 Calcium Carbonate/Vitamin D3 (Calcium + D 600 Mg Tablet) 1 Tab Tablet, 1 TAB PO DAILY 02/22/10 Allergies: Coded Allergies: codeine (Verified Allergy, Intermediate, HIVES, 08/24/16) latex (Verified Allergy, Intermediate, PINK EYE, ASTHMA LIKE REACTION, SOA , 08/24/16) meperidine HCl (Verified Allergy, Intermediate, ITCH,RED, 08/24/16) methimazole (Verified Allergy, Intermediate, HIVES,ITCH, 08/24/16) morphine (Verified Allergy, Intermediate, RED,ITCHING, 08/24/16) oxycodone HCl (Verified Allergy, Intermediate, HIVES, 08/24/16) Family History Family History: Family history is unknown as patient is adopted Social History Smoking Status: Never smoker Substance Use Type: does not use Alcohol Intake: none Marital Status: Sexuality: male partner Housing: house Advance Directives: Yes Full Code, No DPOA for Healthcare Only Social History Comments Primary care provider. Dr. Jeremias Sommers Review of Systems Constitutional: REPORTS: chills, fatigue Cardiovascular dyspnea on exertion Pulmonary Respiratory: cough, dyspnea, tachypnea All Other Systems All Other Systems: Reviewed (remainder of 10-point ROS Neg.) Physical Exam General General Nourishment: well nourished, well developed Vital Signs Vital Signs Date Time Temp Pulse Resp B/P Pulse Ox O2 Delivery O2 Flow Rate FiO2 08/24/16 13:19 97.6 104 20 164/79 91 Room Air Height (Feet): 5 Height (Inches): 2.00 Eyes Brief: FOUND: PERRL, scleral icterus ENMT Brief: FOUND: mucosa moist, normal dentition, NOT FOUND: pharnyx erythema Respiratory Brief: FOUND: clear all hurley, equal bilaterally Cardiovascular (brief) Cardiac Brief: FOUND: regular rate, regular rhythm, NOT FOUND: pedal edema Abdomen (brief) Abdominal Brief: FOUND: BS normo active x4, soft Integumentary (brief) Integumentary Brief: FOUND: dry, pink, warm Neurologic (brief) Neurological Brief: FOUND: cranial 2-12 intact Neurologic RN Documented GCS Eye Opening: Verbal: Motor: Total: Psychiatric (brief) FOUND: alert, attentive, normal affect, oriented Laboratory Laboratory Tests Test 08/24/16 10:37 White Blood Count 11.2T/MM3 Red Blood Count 4.39M/MM3 Hemoglobin 13.1GM/DL Hematocrit 40.9% Mean Corpuscular Volume 93.2UM3 Mean Corpuscular Hemoglobin 29.8UUG Mean Corpuscular Hemoglobin Concent 32.0GM/DL RDW Standard Deviation 45.1FL Platelet Count 312T/MM3 Mean Platelet Volume 9.4UM3 Immature Granulocyte % (Auto) 0.4% Neutrophils (%) (Auto) 83.0% Lymphocytes (%) (Auto) 12.6% Monocytes (%) (Auto) 3.5% Eosinophils (%) (Auto) 0.3% Basophils (%) (Auto) 0.2% Absolute Immature Granulocyte (auto 0.04T/MM3 Absolute Neutrophils (auto) 9.3T/MM3 Absolute Lymphocytes (auto) 1.4T/MM3 Absolute Monocytes (auto) 0.4T/MM3 Absolute Eosinophils (auto) 0.0T/MM3 Absolute Basophils (auto) 0.0T/MM3 D-Dimer < 150NG/ML Turbidity < 20 Sodium Level 142MEQ/L Potassium Level 3.6MEQ/L Chloride Level 105MEQ/L Carbon Dioxide Level 18MEQ/L Anion Gap 19MEQ/L Blood Urea Nitrogen 14.0MG/DL Creatinine 0.8MG/DL Glomerular Filtration Rate Calc 75 BUN/Creatinine Ratio 18RATIO Glucose Level 223MG/DL Calculated Osmolality 281MOSM/KG Calcium Level 9.6MG/DL Total Bilirubin 0.40MG/DL Icterus Index < 2 Aspartate Amino Transf (AST/SGOT) 24U/L Alanine Aminotransferase (ALT/SGPT) 28U/L Alkaline Phosphatase 60U/L Troponin I < 0.012ng/ml Total Protein 7.0G/DL Albumin 4.1G/DL Globulin 2.9G/DL Albumin/Globulin Ratio 1.4RATIO Chemistry Specimen Hemolysis < 15 Assessment & Plan Problems: (1) Dyspnea Status: Acute Qualifiers: Dyspnea type: dyspnea on exertion Qualified Codes: R06.09 - Other forms of dyspnea (2) Allergic reaction Status: Acute Assessment & Plan: Possible allergic reaction- ? Latex versus environmental versus medication (3) Hyperglycemia Status: Acute Assessment & Plan: Present on admission- BGM 223. May be secondary to steroid use (4) HTN (hypertension) Status: Chronic (5) Hyperlipidemia Status: Chronic (6) Irritable bowel syndrome Status: Chronic (7) Allergic rhinitis Status: Chronic (8) Hyperthyroidism Status: Chronic (9) Anxiety and depression Status: Chronic (10) Obstructive sleep apnea Status: Chronic (11) Obesity Status: Chronic (12) Hx of encephalitis Status: Resolved Plan/Intensity of Service Admit to outpatient observation under the care of Dr Corey for dyspnea with possible allergic reaction Monitor patient on continuous oximetry to evaluate for hypoxia. Oxygen available as needed to maintain saturations greater than 92% Will scheduled DuoNeb breathing treatments 4 times a day and Pulmicort twice a day for ongoing dyspnea and wheezing. Patient receives Solu-Medrol 125 milligrams IV while in the emergency room. We will give her a oral dose of prednisone 60 milligrams at 1700 today and then change her to daily starting tomorrow morning. Monitor Accu-Cheks as patient was hyperglycemic on arrival. This may be secondary to steroid use. Pepcid 20 milligrams IV twice a day as an H2 demario given that there is a potential ALLERGIC reaction. Benadryl available as needed. Tessalon pearls as needed 3 times a day for coughing. Ativan as needed for anxiety and to help with sleeping. Patient was taken off of her Cozaar yesterday and started on Norvasc 5 milligrams daily. We will continue to monitor blood pressure. Recheck TSH, hemoglobin A1c, and respiratory viral panel mild for laboratory completeness on admission. Recheck CBC and BMP tomorrow morning to follow blood counts, renal function and electrolytes Up in room as needed. SCDs to bilateral lower extremity for DVT prophylaxis Will discuss further plan of care with Dr. Corey At time of discharge medical care will return to her primary care provider, Dr. Sommers DVT Prophylaxis: SCD'S Code Status Full Code Hospital Course Summary Disclaimer The hospital course summary below is not to be considered part of the above Progress Note. Hospital Course Summary Admit to outpatient observation under the care of Dr Corey for dyspnea with possible allergic reaction Monitor patient on continuous oximetry to evaluate for hypoxia. Oxygen available as needed to maintain saturations greater than 92% Will scheduled DuoNeb breathing treatments 4 times a day and Pulmicort twice a day for ongoing dyspnea and wheezing. Patient receives Solu-Medrol 125 milligrams IV while in the emergency room. We will give her a oral dose of prednisone 60 milligrams at 1700 today and then change her to daily starting tomorrow morning. Monitor Accu-Cheks as patient was hyperglycemic on arrival. This may be secondary to steroid use. Pepcid 20 milligrams IV twice a day as an H2 demario given that there is a potential ALLERGIC reaction. Benadryl available as needed. Tessalon pearls as needed 3 times a day for coughing. Ativan as needed for anxiety and to help with sleeping. Patient was taken off of her Cozaar yesterday and started on Norvasc 5 milligrams daily. We will continue to monitor blood pressure. Recheck TSH, hemoglobin A1c, and respiratory viral panel mild for laboratory completeness on admission. Recheck CBC and BMP tomorrow morning to follow blood counts, renal function and electrolytes Up in room as needed. SCDs to bilateral lower extremity for DVT prophylaxis Will discuss further plan of care with Dr. Corey At time of discharge medical care will return to her primary care provider, COURT Lincoln MD 08/24/16 7569: Past Medical History Current Medications Home Meds Reported Medications Prednisone (Prednisone) 20 Mg Tablet, 60 MG PO TAPER Q3D 08/24/16 Losartan Potassium (Losartan Potassium) 100 Mg Tablet, 100 MG PO DAILY 08/24/16 Lorazepam (Lorazepam) 0.5 Mg Tablet, 0.5 MG PO Q6H Y for ANXIETY 08/24/16 Ibuprofen (Ibuprofen) 200 Mg Tablet, 600 MG PO Q4H Y for PAIN 08/24/16 Guaifenesin/Dextromethorphan (Robitussin Ssstr-Aostr-Lvwx Dm) 1 Each Capsule, 2 CAP PO Q4HR Y for CONSTIPATION 08/24/16 Estradiol (Estrace) 1 Mg Tablet, 1 MG PO DAILY 08/24/16 Escitalopram Oxalate (Escitalopram Oxalate) 20 Mg Tablet, 20 MG PO DAILY 08/24/16 Amlodipine Besylate (Amlodipine Besylate) 5 Mg Tablet, 5 MG PO DAILY 08/24/16 Albuterol Sulfate (Ventolin HFA 90 mcg/actuation) 18 Gm Hfa.aer.ad, 1 PUFF ORAL INH Q4H Y for SHORTNESS OF AIR/WHEEZING 08/24/16 Omeprazole (Omeprazole) 20 Mg Capsule.dr, 20 MG PO ACB 07/19/16 Pravastatin Sodium (Pravastatin Sodium) 40 Mg Tablet, 40 MG PO HS 02/22/10 Propylthiouracil (Propylthiouracil) 50 Mg Tablet, 50 MG PO DAILY 02/22/10 Calcium Carbonate/Vitamin D3 (Calcium + D 600 Mg Tablet) 1 Tab Tablet, 1 TAB PO DAILY 02/22/10 Allergies: Coded Allergies: codeine (Verified Allergy, Intermediate, HIVES, 08/24/16) latex (Verified Allergy, Intermediate, PINK EYE, ASTHMA LIKE REACTION, SOA , 08/24/16) meperidine HCl (Verified Allergy, Intermediate, ITCH,RED, 08/24/16) methimazole (Verified Allergy, Intermediate, HIVES,ITCH, 08/24/16) morphine (Verified Allergy, Intermediate, RED,ITCHING, 08/24/16) oxycodone HCl (Verified Allergy, Intermediate, HIVES, 08/24/16) Assessment & Plan Assessment I have independently evaluated and examined this patient. I reviewed the chart, the patient's history, and the HUNTER GUIDE's documented findings as above. We discussed and formulated the assessment and plan as above with additions as below: Mrs. Murillo presents with increasing dyspnea/cough/wheezing over 2 days after exposure to latex gloves. She describes having "respiratory stuff" 3 weeks ago and that her grandson remains ill with an ear infection and cough currently. She 's had some minor arthralgias and low grade fevers prior to latex exposure and postexposure developed some left periorbital edema in addition to respiratory symptoms. Treatment was initiated with 60 mg of prednisone yesterday in conjunction with beta agonists but exertional dyspnea worsened prompting reevaluation by Dr. Sommers today and referral to the emergency room. No stridor was described in the ER and she was clinically improved after beta agonist therapy. On examination the patient is alert and cooperative. Minor left periorbital edema is present but no conjunctival injection. Oropharynx is clear and neck supple. Cardiac exam is regular. Breath sounds are clear and respirations nonlabored. No wheezing is present at the time of my examination and forced expiration does not trigger wheezing although it does trigger nonproductive cough. There is no stridor present. No lower extremity edema present. Chest x-rays been reviewed by myself and is unremarkable. Laboratory data unremarkable. Recent outpatient hemoglobin A1c and TSH normal. Given progressive symptoms over the past 24 hours despite initiation of prednisone yesterday Will continue Solu-Medrol for an additional 24 hours. Respiratory viral panel pending. Continue beta agonist therapy. Will add scheduled Zyrtec and Pepcid for histamine blockade. Schedule Tessalon Perles as irritative cough is the primary symptom bothering the patient at the time of my exam with when necessary Tussionex or [place]. Continue CPAP at night. Plan/Intensity of Service Chest x-ray reviewed by myself, outpatient records reviewed. Discussed with Dr. Sands. Laboratory data reviewed. MARJAN ELLER V HUNTER GUIDE Aug 24, 2016 14:[address] CORE[place] MD Aug 24, 2016 16:29
[2016-08-24] MEDS ORDERED: HYDROCODONE/APAP 5 mg/325 mg TABLET PO PRN (15:15)
[2016-08-24] MEDS ORDERED: ALBUTEROL/IPRATROPIUM INHAL. 2.5mg-0.5mg/3ml Neb. AEROSOL SCH (17:00)
[2016-08-24] MEDS ORDERED: PredniSONE 20 MG TABLET PO ONE (17:00)
[2016-08-24] MEDS: DiphenhydrAMINE 50 MG/ML INJECTION IV PRN (18:27)
--- NOTE | 2016-08-24 18:48 | NUR ---
UPDATE PT HAS BEEN STABLE SINCE ARRIVAL, HAS BEEN COMPLAINING OF A HEADACHE, SHE WAS GIVEN NORCO 5/325 BUT IT DID NOT TAKE HEADACHE AWAY. THUS, BENADRYL WAS ADMINISTERED ORDERED. PT RECEIVED A BREATHING TX AND DENIES ANY SOA, PTS O2 SATS HAVE BEEN ABOVE 93% IN RA SINCE ARRIVAL. PTS DAUGHTER IS CURRENTLY AT BEDSIDE.
[2016-08-24] MEDS: ALBUTEROL/IPRATROPIUM INHAL. 2.5mg-0.5mg/3ml Neb. AEROSOL SCH (19:16)
[2016-08-24] MEDS: BUDESONIDE INH.SOLN. 0.5mg/2ml NEB AEROSOL SCH (19:16)
[2016-08-24] MEDS: FAMOTIDINE 20 MG TABLET PO SCH (20:14)
[2016-08-24] MEDS: PRAVASTATIN 40 MG TABLET PO SCH (20:14)
[2016-08-24] MEDS: BENZONATATE 200 MG CAPSULE PO SCH (20:14)
[2016-08-24] MEDS: CETIRIZINE 10 MG TABLET PO SCH (20:14)
[2016-08-24] MEDS: HYDROCODONE/APAP 5 mg/325 mg TABLET PO PRN (20:15)
[2016-08-24] MEDS ORDERED: FAMOTIDINE 20 MG in NORMAL SALINE 50 ML IV SCH (21:00)
[2016-08-24] MEDS: LORAZEPAM 0.5 MG TABLET PO PRN (21:45)
[2016-08-24] MEDS: HYDROCODONE/CHLORPHENIRAMINE ER 5 ML LIQUID PO PRN (21:45)
[2016-08-24] MEDS ORDERED: KETOROLAC 30mg/ml INJECTION IV ONE (23:15)
--- NOTE | 2016-08-25 00:29 | NUR ---
Headache Pt headache did not resolve with PRN benadryl, norco, ativan, or tussionex. Notified Dr. Wilkins who ordered ketorolac x1 dose. On reassessment headache pain dropped from a 6/10 to a 3/10. Pt expressed satisfaction.
--- NOTE | 2016-08-25 04:50 | NUR ---
Status Pt home CPAP in use. RT replaced CPAP tubing in case of allergen residing in previous tubing. and two sons present in evening. VSS on RA and CPAP. Pt frustrated about headache until ketorolac ordered and given. Pt compliant with cares. Bed alarm on because of high-risk medications. Will continue to monitor.
[2016-08-25 05:54] LABS: HCT - HEMATOCRIT 41.1 % (36-46); HGB - HEMOGLOBIN 13.1 GM/DL (12-16); MEAN CORPUSCULAR HGB 29.8 UUG (26-34); MEAN CORPUSCULAR HGB CONC(MCHC 31.9 GM/DL (31-37); MEAN CORPUSCULAR VOLUME 93.6 UM3 (80-100); MEAN PLATELET VOLUME 9.8 UM3 (9.4-12.4); RED BLOOD COUNT 4.39 M/MM3 (4.00-5.20); WBC - WHITE BLOOD COUNT 16.7 T/MM3 (4.5-11.0)
[2016-08-25 06:02] LABS: ANION GAP 15 MEQ/L (5-15); BUN/CREATININE RATIO 23 RATIO (6-26); CALCIUM 9.4 MG/DL (8.4-10.2); CHLORIDE 102 MEQ/L (98-107); CO2 - CARBON DIOXIDE 24 MEQ/L (22-30); CREATININE 0.8 MG/DL (0.7-1.2); GLOMERULAR FILTRATION RATE 75; GLUCOSE 149 MG/DL (65-110); POTASSIUM 4.3 MEQ/L (3.6-5); SODIUM 141 MEQ/L (134-144)
[2016-08-25 06:20] LABS: BAND NEUTROPHILS # 0.3 T/MM3; LYMPHOCYTES # (MANUAL) 0.5 T/MM3 (1-4.8); MONOCYTES # (MANUAL) 0.5 T/MM3 (0-0.8); NEUTROPHILS #(MANUAL)-ABSOLUTE 15.4 T/MM3 (1.8-7.7); TOTAL CELLS COUNTED 100 %
[2016-08-25 07:35] VITALS: BP 154/97; PULSE 83; RESP 16; TEMP 96.3; O2SAT 97
[2016-08-25] MEDS ORDERED: PredniSONE 20 MG TABLET PO SCH (08:00)
[2016-08-25] MEDS: ALBUTEROL/IPRATROPIUM INHAL. 2.5mg-0.5mg/3ml Neb. AEROSOL SCH ×4 (08:00→20:42)
[2016-08-25 08:01] VITALS: O2SAT 96
[2016-08-25] MEDS: BUDESONIDE INH.SOLN. 0.5mg/2ml NEB AEROSOL SCH ×2 (08:01→20:42)
[2016-08-25] MEDS: BENZONATATE 200 MG CAPSULE PO SCH ×3 (08:23→20:08)
[2016-08-25] MEDS: CALCIUM 600mg + VIT D 400 TABLET PO SCH (08:23)
[2016-08-25] MEDS: ESTRADIOL 1 MG TABLET PO SCH (08:24)
[2016-08-25] MEDS: FAMOTIDINE 20 MG TABLET PO SCH ×2 (08:24→20:08)
[2016-08-25] MEDS: ESCITALOPRAM 20 MG TABLET PO SCH (08:24)
[2016-08-25] MEDS: PROPYLTHIOURACIL 50 MG TABLET PO SCH (08:24)
[2016-08-25] MEDS: AMLODIPINE 5 MG TABLET PO SCH (08:24)
--- NOTE | 2016-08-25 08:58 | PNPDOC ---
MARJAN ELLER V DOOR OPERATOR 08/25/16 0857: Subjective Date DATE: 08/25/16 TIME: 08:52 Subjective Mally is seen this morning in follow-up. She complains of feeling worn out and fatigued. Reports was not able to sleep well overnight. She reports that she is had a frontal headache that has been ongoing. She requests another dose of NSAIDs that she feels like this helps more than anything. She did receive Toradol at approximately 11 p.m. last night along with oral [place], which did help. Overall, she feels that her breathing has improved. She denies feeling chest pain, or GI complaints. Appetite this morning is good. Room air saturations 98% Objective Vital Signs Vital signs Vital Signs Date Time Temp Pulse Resp B/P Pulse Ox O2 Delivery O2 Flow Rate FiO2 08/25/16 08:14 94 08/25/16 08:01 96 08/25/16 07:35 96.3 16 154/97 Room Air Height (Feet): 5 Height (Inches): 2.00 Weight (Kilograms): 92.800 General General Appearance: Alert, Orientated x 3, Cooperative, No Acute Distress Eyes (Brief) Eyes: FOUND: EOMI ENMT (Brief) ENMT: FOUND: mucosa moist, normal dentition, NOT FOUND: pharnyx erythema Neck (Brief) Neck: FOUND: midline, NOT FOUND: adenopathy, carotid bruits, tracheal deviation Respiratory (Brief) Respiratory: FOUND: clear all hurley, equal bilaterally, NOT FOUND: wheezes Cardiovascular (Brief) Cardiac: FOUND: regular rate, regular rhythm, NOT FOUND: murmur, pedal edema Capillary Refill: <2 sec Abdomen (Brief) Abdominal: FOUND: BS normo active x4, soft, NOT FOUND: distended, tender Lymphatic (Brief) Lymphatic: NOT FOUND: adenopathy Musculoskeletal (Brief) Musculoskeletal: NOT FOUND: tenderness Integumentary (Brief) Integumentary: FOUND: dry, pink, warm Neurologic (Brief) Neurological: FOUND: cranial 2-12 intact Psychiatric (Brief) Psychiatric: FOUND: alert, attentive, normal affect, oriented Laboratory Laboratory Laboratory Tests 08/24/16 10:37 08/25/16 05:07 Laboratory Tests 08/24/16 10:37 08/25/16 05:07 Assessment & Plan Problems: (1) Dyspnea Status: Acute Qualifiers: Dyspnea type: dyspnea on exertion Qualified Codes: R06.09 - Other forms of dyspnea (2) Allergic reaction Status: Acute Assessment & Plan: Possible allergic reaction- ? Latex versus environmental versus medication (3) Hyperglycemia Status: Acute Assessment & Plan: Present on admission- BGM 223. May be secondary to steroid use (4) HTN (hypertension) Status: Chronic (5) Hyperlipidemia Status: Chronic (6) Irritable bowel syndrome Status: Chronic (7) Allergic rhinitis Status: Chronic (8) Hyperthyroidism Status: Chronic (9) Anxiety and depression Status: Chronic (10) Obstructive sleep apnea Status: Chronic (11) Obesity Status: Chronic (12) Hx of encephalitis Status: Resolved (13) Headache Status: Acute Plan/Intensity of Service 08/25/16 Overall breathing appears to be improved. Breath sounds are clear bilaterally without evidence of wheezing. Patient does complain of a frontal and temporal headache. Will give one-time dose of Toradol 31 grams IV along with an oral hydrocodone now. Continue with steroids, currently on Solu-Medrol 62.5 milligrams IV every 6 hours. Will convert over to oral at time of discharge. Continue with scheduled breathing treatments Blood pressure this morning is elevated 154/97, patient has not yet had her Norvasc. Will continue to monitor. WBC count elevated today at 16.7. She is afebrile. This is likely secondary to steroid use. Patient is hopeful that she can discharge home later today Code Status Full Code Hospital Course Summary Disclaimer The hospital course summary below is not to be considered part of the above Progress Note. Hospital Course Summary Admit to outpatient observation under the care of Dr Corey for dyspnea with possible allergic reaction Monitor patient on continuous oximetry to evaluate for hypoxia. Oxygen available as needed to maintain saturations greater than 92% Will scheduled DuoNeb breathing treatments 4 times a day and Pulmicort twice a day for ongoing dyspnea and wheezing. Patient receives Solu-Medrol 125 milligrams IV while in the emergency room. We will give her a oral dose of prednisone 60 milligrams at 1700 today and then change her to daily starting tomorrow morning. Monitor Accu-Cheks as patient was hyperglycemic on arrival. This may be secondary to steroid use. Pepcid 20 milligrams IV twice a day as an H2 demario given that there is a potential ALLERGIC reaction. Benadryl available as needed. Tessalon pearls as needed 3 times a day for coughing. Ativan as needed for anxiety and to help with sleeping. Patient was taken off of her Cozaar yesterday and started on Norvasc 5 milligrams daily. We will continue to monitor blood pressure. Recheck TSH, hemoglobin A1c, and respiratory viral panel mild for laboratory completeness on admission. Recheck CBC and BMP tomorrow morning to follow blood counts, renal function and electrolytes Up in room as needed. SCDs to bilateral lower extremity for DVT prophylaxis Will discuss further plan of care with Dr. Corey At time of discharge medical care will return to her primary care provider, Dr. Sommers 08/25/16 Overall breathing appears to be improved. Breath sounds are clear bilaterally without evidence of wheezing. Patient does complain of a frontal and temporal headache. Will give one-time dose of Toradol 31 grams IV along with an oral hydrocodone now. Continue with steroids, currently on Solu-Medrol 62.5 milligrams IV every 6 hours. Will convert over to oral at time of discharge. Continue with scheduled breathing treatments WBC count elevated today at 16.7. She is afebrile. This is likely secondary to steroid use. Blood pressure this morning is elevated 154/97, patient has not yet had her Norvasc. Will continue to monitor. Patient is hopeful that she can discharge home later today COURT COREY MD 08/25/16 1544: Assessment & Plan Assessment I have independently evaluated and examined this patient. I reviewed the chart, the patient's history, and the DOOR OPERATOR's documented findings as above. We discussed and formulated the assessment and plan as above with additions as below: Mally continues to describe dyspnea and tightness in her upper chest with intermittent wheezing. Headache improved after 30 mg IV dose of Toradol and oral [place]. When initially examined there was residual minor edema under both eyes no perioral edema. Airflow was good and breath sounds clear. When reevaluated midafternoon there was faint expiratory wheezing in the mid upper anterior lung field and faint wheezing over the trachea but no stridor. Patient has new need for frequent beta agonist treatments and was tachypnea on presentation. There is symptomatic dyspnea and poor peak flow with posttreatment peak flow of 310. Convert to inpatient, check lateral soft tissues of the neck to look for evidence of edema in the upper airway. Anticipate conversion to oral prednisone tomorrow if symptoms breaking. Continue to monitor peak flows before and after treatment to look for improvement not yet evident. Plan/Intensity of Service Discussed with respiratory therapy, nursing, and social work. Laboratory data reviewed, x-rays ordered. MARJAN ELLER APRN Aug 25, 2016 08:[address] CORE[place] MD Aug 25, 2016 15:44
[2016-08-25] MEDS ORDERED: KETOROLAC 30mg/ml INJECTION IV ONE (09:00)
[2016-08-25] MEDS: HYDROCODONE/APAP 5 mg/325 mg TABLET PO PRN ×2 (09:36→18:16)
[2016-08-25] MEDS: DiphenhydrAMINE 25 MG CAPSULE PO PRN (09:37)
--- NOTE | 2016-08-25 11:02 | NUR ---
CM THIS WORKER MET WITH PT AT THIS TIME. NO OTHERS PRESENT AT THIS TIME. PT REPORTED THAT SHE WAS PLANNING TO RETURN HOME WHEN DISCHARGED. PT DENIED ANY NEEDS AT THIS TIME. PT REPORTED THAT SHE HAD A AND CHILDREN AT HOME. PT REPORTED THAT SHE HAS CPAP MACHINE AND A NEBULIZER AT HOME. PT REPORTED THAT SHE HAD GOOD INSURANCE TO COVER MEDICATIONS. THIS WORKER PROVIDED CONTACT INFORMATION FOR PT AND ENCOURAGED TO CONTACT THIS WORKER WITH ANY NEEDS.
[2016-08-25 15:40] VITALS: BP 147/89; PULSE 96; RESP 18; TEMP 96.9; O2SAT 94
[2016-08-25 15:59] VITALS: O2SAT 97
--- NOTE | 2016-08-25 19:34 | NUR ---
Shift Summary Patient alert and oriented x3. VSS. On RA. C/o headache, PRN Twilight and one-time dose Toradol given. Patient states Toradol gives her more relief than Twilight does. Patient called several times stating that she "felt her throat tightening" and that she was short of air. Oxygen saturations were checked at those times and were 97-98%. Patient also c/o SOB when up showering, however she did not call nurse when she got back to bed immediately so oxygen saturation was not checked in time to determine if there was SOB with exertion. IVL right forearm. Adequate urine output this shift. Home CPAP in room for use at night.
[2016-08-25] MEDS: IBUPROFEN 600 MG TABLET PO PRN (20:07)
[2016-08-25] MEDS: LORAZEPAM 0.5 MG TABLET PO PRN (20:08)
[2016-08-25] MEDS: PRAVASTATIN 40 MG TABLET PO SCH (20:08)
[2016-08-25] MEDS: CETIRIZINE 10 MG TABLET PO SCH (20:08)
[2016-08-25] MEDS: HYDROCODONE/CHLORPHENIRAMINE ER 5 ML LIQUID PO PRN (20:09)
[2016-08-25 20:41] VITALS: O2SAT 96
[2016-08-26] VITALS (7 sets, daily range): BP systolic 141–155; BP diastolic 76–83; PULSE 74–92; RESP 14–18; TEMP 96.7–97.1; O2SAT 90–97
--- NOTE | 2016-08-26 03:45 | NUR ---
SUMMARY PT ALERT AND ORIENTED. PT AD MAI IN ROOM. C/O HEAD ACHE EARLY IN SHIFT. IBUPROFEN ADMINISTERED. PT REPORTED DECREASE IN PAIN BUT ONLY SLIGHTLY. 0100 PT REPORTS HEADACHE IS COMPLETELY GONE. PT C/O INCREASED SWEATING DUE TO SOLU-MEDROL. PT NOT USING HOME CPAP MACHINE. IV IN THE RIGHT FOREARM FLUSHES WELL.
[2016-08-26] MEDS ORDERED: BENZOCAINE 20% Top. Anesth. SPRAY UD MM PRN (06:45)
[2016-08-26 06:49] LABS: HCT - HEMATOCRIT 39.5 % (36-46); HGB - HEMOGLOBIN 12.6 GM/DL (12-16); MEAN CORPUSCULAR HGB 30.2 UUG (26-34); MEAN CORPUSCULAR HGB CONC(MCHC 31.9 GM/DL (31-37); MEAN CORPUSCULAR VOLUME 94.7 UM3 (80-100); RED BLOOD COUNT 4.17 M/MM3 (4.00-5.20); WBC - WHITE BLOOD COUNT 18.7 T/MM3 (4.5-11.0)
[2016-08-26 07:02] LABS: BAND NEUTROPHILS # 0.6 T/MM3; LYMPHOCYTES # (MANUAL) 2.1 T/MM3 (1-4.8); NEUTROPHILS #(MANUAL)-ABSOLUTE 16.1 T/MM3 (1.8-7.7); TOTAL CELLS COUNTED 100 %
[2016-08-26] MEDS: SORE THROAT SPRAY 20ml PO PRN ×2 (07:34→12:55)
[2016-08-26] MEDS: DiphenhydrAMINE 25 MG CAPSULE PO PRN (07:34)
[2016-08-26] MEDS: IBUPROFEN 600 MG TABLET PO PRN ×2 (07:34→15:29)
[2016-08-26] MEDS: HYDROCODONE/CHLORPHENIRAMINE ER 5 ML LIQUID PO PRN ×2 (08:28→20:52)
[2016-08-26] MEDS: FAMOTIDINE 20 MG TABLET PO SCH ×2 (08:29→20:49)
[2016-08-26] MEDS: PROPYLTHIOURACIL 50 MG TABLET PO SCH (08:29)
[2016-08-26] MEDS: ESTRADIOL 1 MG TABLET PO SCH (08:29)
[2016-08-26] MEDS: PredniSONE 20 MG TABLET PO SCH (08:29)
[2016-08-26] MEDS: CALCIUM 600mg + VIT D 400 TABLET PO SCH (08:29)
[2016-08-26] MEDS: ESCITALOPRAM 20 MG TABLET PO SCH (08:29)
[2016-08-26] MEDS: BENZONATATE 200 MG CAPSULE PO SCH ×3 (08:29→20:49)
[2016-08-26] MEDS: AMLODIPINE 5 MG TABLET PO SCH (08:29)
[2016-08-26] MEDS: ALBUTEROL/IPRATROPIUM INHAL. 2.5mg-0.5mg/3ml Neb. AEROSOL SCH ×4 (08:43→18:57)
[2016-08-26] MEDS: BUDESONIDE INH.SOLN. 0.5mg/2ml NEB AEROSOL SCH (08:43)
--- NOTE | 2016-08-26 10:21 | DI ---
Indication: ITS.REASON: allergic reaction/upper airway wheezing PROCEDURE: NECK SOFT TISSUE: Encounter: Initial Comparison: None Findings: No prevertebral or retropharyngeal soft tissue swelling. No acute fracture or subluxation. Normal appearance of the epiglottis. No obvious airway narrowing or deviation. Impression: No acute abnormality seen. .
[2016-08-26] MEDS ORDERED: POLYETHYL.GLYCOL 3350 PACKET 17gm PO ONE (11:45)
[2016-08-26] MEDS ORDERED: EPIN0.3P2 IM (11:48)
--- NOTE | 2016-08-26 11:49 | PNPDOC ---
INDRA COWAN MEDICAL EDUCATION SPECIALIST 08/26/16 1143: Subjective Date DATE: 08/26/16 TIME: 11:40 Subjective Mally is not feeling any better this morning. She has a faint audible wheeze, and is still short of breath, especially with exertion. She has also developed an itchy rash to her face, chest, arms and back. She still feels swollen in her throat and under her eyes. She has a sore throat, and is concerned about thrush. Her voice is still raspy. She was able to rest better last night. She states she still has a headache, which is made worse by the breathing treatments , however, it is not as severe as it was last night. Objective Vital Signs Vital signs Vital Signs Date Time Temp Pulse Resp B/P Pulse Ox O2 Delivery O2 Flow Rate FiO2 08/26/16 09:01 104 08/26/16 08:43 16 97 08/26/16 07:32 96.7 154/83 Room Air Height (Feet): 5 Height (Inches): 2.00 Weight (Kilograms): 92.800 General General Appearance: Alert, Orientated x 3, Well Nourished, Well Developed, No Acute Distress Eyes (Brief) Eyes: FOUND: PERRL, NOT FOUND: scleral icterus ENMT (Brief) ENMT: FOUND: other (white coating to tongue), NOT FOUND: pharnyx erythema Respiratory (Brief) Respiratory: FOUND: wheezes Cardiovascular (Brief) Cardiac: FOUND: regular rate, regular rhythm Abdomen (Brief) Abdominal: FOUND: BS normo active x4, soft, NOT FOUND: distended, tender Extremities (Brief) Extremity : Side: Bilateral Extremity: leg Extremity Finding: NOT FOUND: edema Musculoskeletal (Brief) Musculoskeletal: NOT FOUND: deformity, tenderness Integumentary (Brief) Integumentary: FOUND: dry, pink, rash (erythema to chest, upper arms and upper back. ), warm Psychiatric (Brief) Psychiatric: FOUND: alert, attentive, normal affect, oriented Laboratory Laboratory Laboratory Tests 08/25/16 05:07 Laboratory Tests 08/25/16 05:07 08/26/16 05:04 Assessment & Plan Problems: (1) Dyspnea Status: Acute Qualifiers: Dyspnea type: dyspnea on exertion Qualified Codes: R06.09 - Other forms of dyspnea (2) Allergic reaction Status: Acute Assessment & Plan: Possible allergic reaction- ? Latex versus environmental versus medication (3) Hyperglycemia Status: Acute Assessment & Plan: Present on admission- BGM 223. May be secondary to steroid use (4) HTN (hypertension) Status: Chronic (5) Hyperlipidemia Status: Chronic (6) Irritable bowel syndrome Status: Chronic (7) Allergic rhinitis Status: Chronic (8) Hyperthyroidism Status: Chronic (9) Anxiety and depression Status: Chronic (10) Obstructive sleep apnea Status: Chronic (11) Obesity Status: Chronic (12) Hx of encephalitis Status: Resolved (13) Headache Status: Acute Plan/Intensity of Service Peak flows again today were poor (335). 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 Wheezing on exam this morning. Patient also developed a rash today. Soft tissue x-rays of the neck were negative. Continue with DuoNeb treatments and steroids plus antihistamine. Will discontinue Pulmicort given her propensity towards headaches from breathing treatments. Start nystatin for suspected thrush. MiraLAX per request. Discussed with Dr. Corey. When ready for discharge, provide prescription for EpiPen. Code Status Full Code Hospital Course Summary Disclaimer The hospital course summary below is not to be considered part of the above Progress Note. Hospital Course Summary Admit to outpatient observation under the care of Dr Corey for dyspnea with possible allergic reaction Monitor patient on continuous oximetry to evaluate for hypoxia. Oxygen available as needed to maintain saturations greater than 92% Will scheduled DuoNeb breathing treatments 4 times a day and Pulmicort twice a day for ongoing dyspnea and wheezing. Patient receives Solu-Medrol 125 milligrams IV while in the emergency room. We will give her a oral dose of prednisone 60 milligrams at 1700 today and then change her to daily starting tomorrow morning. Monitor Accu-Cheks as patient was hyperglycemic on arrival. This may be secondary to steroid use. Pepcid 20 milligrams IV twice a day as an H2 demario given that there is a potential ALLERGIC reaction. Benadryl available as needed. Tessalon pearls as needed 3 times a day for coughing. Ativan as needed for anxiety and to help with sleeping. Patient was taken off of her Cozaar yesterday and started on Norvasc 5 milligrams daily. We will continue to monitor blood pressure. Recheck TSH, hemoglobin A1c, and respiratory viral panel mild for laboratory completeness on admission. Recheck CBC and BMP tomorrow morning to follow blood counts, renal function and electrolytes Up in room as needed. SCDs to bilateral lower extremity for DVT prophylaxis Will discuss further plan of care with Dr. Corey At time of discharge medical care will return to her primary care provider, Dr. Sommers 08/25/16 Overall breathing appears to be improved. Breath sounds are clear bilaterally without evidence of wheezing. Patient does complain of a frontal and temporal headache. Will give one-time dose of Toradol 31 grams IV along with an oral hydrocodone now. Continue with steroids, currently on Solu-Medrol 62.5 milligrams IV every 6 hours. Will convert over to oral at time of discharge. Continue with scheduled breathing treatments WBC count elevated today at 16.7. She is afebrile. This is likely secondary to steroid use. Blood pressure this morning is elevated 154/97, patient has not yet had her Norvasc. Will continue to monitor. Patient is hopeful that she can discharge home later today 08/26 Peak flows again today were poor (335). 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 Wheezing on exam this morning. Patient also developed a rash today. Soft tissue x-rays of the neck were negative. Continue with DuoNeb treatments and steroids plus antihistamine. Will discontinue Pulmicort given her propensity towards headaches from breathing treatments. Start nystatin for suspected thrush. MiraLAX per request. COURT COREY MD 08/26/16 9060: Assessment & Plan Assessment I have independently evaluated and examined this patient. I reviewed the chart, the patient's history, and the MEDICAL EDUCATION SPECIALIST's documented findings as above. We discussed and formulated the assessment and plan as above with additions as below: Mally complains of development of a pruritic rash overnight involving her face, upper chest and upper arms. Currently it has a "slapped" appearance but last night she reports it was bumpy and like small hives. Rash is not mentioned in nursing notes overnight. Diphenhydramine was given yesterday morning and again this morning but not overnight. Respiratory symptoms remain about the same with intermittent wheezing. Examination reveals mild erythema over the cheeks and upper chest but upper arms are unremarkable. No urticaria or raised lesions are present and there is no thickening of the skin. Breath sounds are clear with good airflow, no wheezing was present at time of my examination and there is no stridor. Less cough noted while visiting with patient today. Peak flow pre-and posttreatment at 3:00 was 300. Converted to prednisone orally this morning, continue H1/H2 blockers. Increase activity as patient tolerates/permits. Has been ambulating in [place] short distances. Blood sugars slightly elevated but anticipate significant improvement off Solu- Medrol. Accu-Cheks discontinued. Recommend follow-up with allergy after discharge. Will continue inpatient management given development of rash over the past 24 hours although no change in management anticipated. Soft tissue films of the neck reviewed-no airway compromise. Plan/Intensity of Service Discussed with nursing, x-rays reviewed by myself. Laboratory data reviewed. INDRA COWAN APRN Aug 26, 2016 11:[address] COREY MD Aug 26, 2016 16:50
[2016-08-26] MEDS: HYDROCODONE/APAP 5 mg/325 mg TABLET PO PRN ×2 (12:55→17:31)
[2016-08-26] MEDS: NYSTATIN 500,000 units/5ml Susp UD PO SCH ×3 (12:55→20:49)
--- NOTE | 2016-08-26 17:49 | NUR ---
Shift Summary Patient alert and oriented x3 this shift. Continue to c/o upper airway tightness and wheezing, however oxygen saturations remain in 90's. Patient ambulated in halls today once with oximeter and maintained sat's between 92-96%. Patient also ambulated in room, up ad jyotsna. IVL left upper arm, flushed well. Adequate output and intake. No c/o n/v/d. Patient c/o headache this shift, states ibuprofen helps but was also given [place] for break through pain between doses. PRN chlorseptic spray and cough syrup given as well. Red rash noted on chest and back this morning at shift change, benadryl given, which helped.
--- NOTE | 2016-08-26 21:00 | NUR ---
PRN PT WAS GIVEN TUSSIONEX FOR COUGH PER HER REQUEST. PT IS SITTING ON THE EDGE OF THE BED COUGHING.
[2016-08-26] MEDS: ALBUTEROL/IPRATROPIUM INHAL. 2.5mg-0.5mg/3ml Neb. AEROSOL PRN (21:34)
[2016-08-26] MEDS: PRAVASTATIN 40 MG TABLET PO SCH (21:50)
[2016-08-26] MEDS: CETIRIZINE 10 MG TABLET PO SCH (21:50)
[2016-08-26] MEDS: POLYETHYL.GLYCOL 3350 PACKET 17gm PO PRN (22:29)
[2016-08-26] MEDS: DiphenhydrAMINE 50 MG/ML INJECTION IV PRN (22:29)
--- NOTE | 2016-08-26 22:30 | NUR ---
PRN PT REQUESTED MIRALAX FOR CONSTIPATION. SHE SAID SHE HAS NOT HAD A BM SINCE ADMISSION ON SATURDAY. TELE HOSPITALIST GAVE AN ORDER FOR MIRALAX DAILY PRN. MIRALAX WAS GIVEN. PT WAS ALSO GIVEN BENADRYL IV FOR ITCHING.AND REDNESS ON HER BILATERAL UPPER EXTREMITIES. WILL CONTINUE TO MONITOR.
[2016-08-27] VITALS (7 sets, daily range): BP systolic 152–161; BP diastolic 78–88; PULSE 80–102; RESP 12–18; TEMP 95.8–97.9; O2SAT 92–99
[2016-08-27] MEDS: IBUPROFEN 600 MG TABLET PO PRN ×2 (00:44→20:03)
[2016-08-27 05:11] LABS: HCT - HEMATOCRIT 39.1 % (36-46); HGB - HEMOGLOBIN 12.5 GM/DL (12-16); MEAN PLATELET VOLUME 9.4 UM3 (9.4-12.4); RED BLOOD COUNT 4.16 M/MM3 (4.00-5.20); WBC - WHITE BLOOD COUNT 18.3 T/MM3 (4.5-11.0)
[2016-08-27 05:27] LABS: ANION GAP 10 MEQ/L (5-15); BUN/CREATININE RATIO 31 RATIO (6-26); CALCIUM 9.1 MG/DL (8.4-10.2); CHLORIDE 102 MEQ/L (98-107); CO2 - CARBON DIOXIDE 27 MEQ/L (22-30); CREATININE 0.8 MG/DL (0.7-1.2); GLOMERULAR FILTRATION RATE 75; GLUCOSE 128 MG/DL (65-110); POTASSIUM 4.6 MEQ/L (3.6-5); SODIUM 139 MEQ/L (134-144)
[2016-08-27 06:31] LABS: LYMPHOCYTES # (MANUAL) 2.6 T/MM3 (1-4.8); METAMYELOCYTES # 0.2 T/MM3; MONOCYTES # (MANUAL) 0.9 T/MM3 (0-0.8); NEUTROPHILS #(MANUAL)-ABSOLUTE 14.3 T/MM3 (1.8-7.7); REACTIVE LYMPHOCYTES # 0.4 T/MM3 (0-0); TOTAL CELLS COUNTED 100 %
[2016-08-27] MEDS: ALBUTEROL/IPRATROPIUM INHAL. 2.5mg-0.5mg/3ml Neb. AEROSOL SCH ×4 (07:10→19:21)
--- NOTE | 2016-08-27 07:19 | NUR ---
SUMMARY PT SLEPT OFF AND ON THIS SHIFT. PT ALERT AND ORIENTED. WAS GIVEN PRN COUGH AND PAIN MEDICATION. PT WAS ON BIPAP ALL NIGHT. BREATHING TREATMENT WAS GIVEN SEVERAL TIMES FOR WHEEZING. BENADRYL FOR RASH AND ITCH AMBULATE TO THE BATHROOM BY HERSELF. GAIT STEADY. PT WAS EDUCATED ABOUT THE USE OF CALL LIGHT AND PT SAFETY.
[2016-08-27] MEDS: DiphenhydrAMINE 50 MG/ML INJECTION IV PRN ×2 (07:38→21:39)
[2016-08-27] MEDS: HYDROCODONE/APAP 5 mg/325 mg TABLET PO PRN ×3 (07:46→23:59)
[2016-08-27] MEDS: PredniSONE 20 MG TABLET PO SCH (08:42)
[2016-08-27] MEDS: MILK OF MAGNESIA 30 ML SUSP PO PRN (08:42)
[2016-08-27] MEDS: DOCUSATE SODIUM 100 MG CAPSULE PO SCH ×2 (08:42→21:30)
[2016-08-27] MEDS: AMLODIPINE 5 MG TABLET PO SCH (08:43)
[2016-08-27] MEDS: NYSTATIN 500,000 units/5ml Susp UD PO SCH ×4 (08:43→21:34)
[2016-08-27] MEDS: ESTRADIOL 1 MG TABLET PO SCH (08:43)
[2016-08-27] MEDS: PROPYLTHIOURACIL 50 MG TABLET PO SCH (08:43)
[2016-08-27] MEDS: FAMOTIDINE 20 MG TABLET PO SCH ×2 (08:43→21:30)
[2016-08-27] MEDS: BENZONATATE 200 MG CAPSULE PO SCH ×3 (08:43→21:29)
[2016-08-27] MEDS: CALCIUM 600mg + VIT D 400 TABLET PO SCH (08:43)
[2016-08-27] MEDS: ESCITALOPRAM 20 MG TABLET PO SCH (08:43)
[2016-08-27] MEDS: MENTHOL COUGH DROPS (RICOLA) MM PRN ×3 (08:48→15:40)
[2016-08-27] MEDS: HYDROCODONE/CHLORPHENIRAMINE ER 5 ML LIQUID PO PRN ×2 (09:37→21:32)
[2016-08-27] MEDS: ALBUTEROL/IPRATROPIUM INHAL. 2.5mg-0.5mg/3ml Neb. AEROSOL PRN (09:42)
--- NOTE | 2016-08-27 09:46 | NUR ---
PRN MEDS PATIENT GIVEN MOM THIS AM DUE TO NO BOWEL MOVEMENT SINCE 08/27. MIRALAX THE PAST TWO DAYS HAS NOT HELPED. TUSSINEX GIVEN FOR UNCONTROLLED COUGH AND NORCO GIVEN FOR PAIN FROM COUGHING. BENADRYL GIVEN FOR ITCHY RASH ON ARMS, CHEST, AND BACK, BUT MOSTLY JUST ON ARMS. RASH IS SMALL MACULAR RED SPOTS.
[2016-08-27] MEDS ORDERED: PSEUDOEPHEDRINE PO SCH (11:15)
[2016-08-27] MEDS ORDERED: EPINEPHRINE 1mg/ml INJECTION AMP IM ONE (11:15)
[2016-08-27] MEDS ORDERED: CLONAZEPAM 0.5 MG TABLET PO ONE (11:15)
[2016-08-27] MEDS ORDERED: GUAIFENESIN PO SCH (11:15)
--- NOTE | 2016-08-27 11:22 | PNPDOC ---
INDRA COWAN INGOT BUGGY OPERATOR 08/27/16 1118: Subjective Date DATE: 08/27/16 TIME: 11:14 Subjective Mally was seen just after taking a short walk. She became very winded and started wheezing suddenly. Her sats stayed above 90% the entire time. She was still wheezing when I saw her. She reports that her rash has spread down her arms and is still very itchy. She feels miserable in general. Peakflow this morning only improved to 350 lpm. Notes worsening sinus congestion as well. Still constipated. Objective Vital Signs Vital signs Vital Signs Date Time Temp Pulse Resp B/P Pulse Ox O2 Delivery O2 Flow Rate FiO2 08/27/16 09:43 24 97 08/27/16 09:42 89 08/27/16 07:36 95.8 153/78 Room Air 08/27/16 00:00 2.00 Height (Feet): 5 Height (Inches): 2.00 Weight (Kilograms): 93.900 General General Appearance: Alert, Orientated x 3, Well Nourished, Well Developed, No Acute Distress Eyes (Brief) Eyes: FOUND: PERRL, NOT FOUND: scleral icterus ENMT (Brief) ENMT: FOUND: mucosa moist, NOT FOUND: pharnyx erythema Respiratory (Brief) Respiratory: FOUND: wheezes Cardiovascular (Brief) Cardiac: FOUND: regular rate, regular rhythm Abdomen (Brief) Abdominal: FOUND: BS normo active x4, soft, NOT FOUND: distended, tender Extremities (Brief) Extremity : Side: Bilateral Extremity: leg Extremity Finding: NOT FOUND: edema Musculoskeletal (Brief) Musculoskeletal: NOT FOUND: tenderness Integumentary (Brief) Integumentary: FOUND: dry, pink, rash (erythemic rash to chest, neck, back, arms, cheeks), warm Psychiatric (Brief) Psychiatric: FOUND: alert, attentive, normal affect, oriented Laboratory Laboratory Laboratory Tests 08/27/16 04:45 Laboratory Tests 08/26/16 05:04 08/27/16 04:45 Assessment & Plan Problems: (1) Dyspnea Status: Acute Qualifiers: Dyspnea type: dyspnea on exertion Qualified Codes: R06.09 - Other forms of dyspnea (2) Allergic reaction Status: Acute Assessment & Plan: Possible allergic reaction- ? Latex versus environmental versus medication (3) Hyperglycemia Status: Acute Assessment & Plan: Present on admission- BGM 223. May be secondary to steroid use (4) HTN (hypertension) Status: Chronic (5) Hyperlipidemia Status: Chronic (6) Irritable bowel syndrome Status: Chronic (7) Allergic rhinitis Status: Chronic (8) Hyperthyroidism Status: Chronic (9) Anxiety and depression Status: Chronic (10) Obstructive sleep apnea Status: Chronic (11) Obesity Status: Chronic (12) Hx of encephalitis Onset Date: ~ 1989 Status: Resolved (13) Headache Status: Acute Assessment Plan/Intensity of Service No better - wheezes and becomes dyspneic with activity. Rash spreading. PF slightly better today. Give epi 0.3 mL x1 given worsening sx - may make anxiety worse so will offer clonazepam x1 if she wants it. Mucinex for congestion. Concerned that her symptoms are worsening in this environment. She needs cab worker f/u. Discussed with Dr. Da Silva. Code Status Full Code Hospital Course Summary Disclaimer The hospital course summary below is not to be considered part of the above Progress Note. Hospital Course Summary Admit to outpatient observation under the care of Dr Corey for dyspnea with possible allergic reaction Monitor patient on continuous oximetry to evaluate for hypoxia. Oxygen available as needed to maintain saturations greater than 92% Will scheduled DuoNeb breathing treatments 4 times a day and Pulmicort twice a day for ongoing dyspnea and wheezing. Patient receives Solu-Medrol 125 milligrams IV while in the emergency room. We will give her a oral dose of prednisone 60 milligrams at 1700 today and then change her to daily starting tomorrow morning. Monitor Accu-Cheks as patient was hyperglycemic on arrival. This may be secondary to steroid use. Pepcid 20 milligrams IV twice a day as an H2 demario given that there is a potential ALLERGIC reaction. Benadryl available as needed. Tessalon pearls as needed 3 times a day for coughing. Ativan as needed for anxiety and to help with sleeping. Patient was taken off of her Cozaar yesterday and started on Norvasc 5 milligrams daily. We will continue to monitor blood pressure. Recheck TSH, hemoglobin A1c, and respiratory viral panel mild for laboratory completeness on admission. Recheck CBC and BMP tomorrow morning to follow blood counts, renal function and electrolytes Up in room as needed. SCDs to bilateral lower extremity for DVT prophylaxis Will discuss further plan of care with Dr. Corey At time of discharge medical care will return to her primary care provider, Dr. Sommers 08/25/16 Overall breathing appears to be improved. Breath sounds are clear bilaterally without evidence of wheezing. Patient does complain of a frontal and temporal headache. Will give one-time dose of Toradol 31 grams IV along with an oral hydrocodone now. Continue with steroids, currently on Solu-Medrol 62.5 milligrams IV every 6 hours. Will convert over to oral at time of discharge. Continue with scheduled breathing treatments WBC count elevated today at 16.7. She is afebrile. This is likely secondary to steroid use. Blood pressure this morning is elevated 154/97, patient has not yet had her Norvasc. Will continue to monitor. Patient is hopeful that she can discharge home later today 08/26 Peak flows again today were poor (335). 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 Wheezing on exam this morning. Patient also developed a rash today. Soft tissue x-rays of the neck were negative. Continue with DuoNeb treatments and steroids plus antihistamine. Will discontinue Pulmicort given her propensity towards headaches from breathing treatments. Start nystatin for suspected thrush. MiraLAX per request. 08/27/16 No better - wheezes and becomes dyspneic with activity. Rash spreading. PF slightly better today. Give epi 0.3 mL x1 given worsening sx - may make anxiety worse so will offer clonazepam x1 if she wants it. Mucinex for congestion. Concerned that her symptoms are worsening in this environment. She needs cab worker f/u. JOHN DA SILVA MD 08/27/16 1602: Assessment & Plan Plan/Intensity of Service Have independently interviewed and examined pt. Chart reviewed. Case discussed with nursing, CM, Dr Corey, and my INGOT BUGGY OPERATOR. Care plan developed with my supervision; agree with above. Feeling about the same-washed out, SOA/wheezy, and miserable. Notes some sinus congestion. Cough, not mobilizing any sputum; chest wall sore from coughing. Ambulated well in halls. Appetite decreasing, trying to finds things that sound appealing to eat. Mouth less sore. Stools slow. Urinating well. Lungs: decreased. Diffuse scattered wheezes. CV: regular AB: soft nt/nd BS decreased EXT: trace edema. Psych: awake alert appropriate Plan: With continued wheezes and symptoms will hold oral Prednisone and restart Solu-Medrol 125mg IV q 6 hours. Acapella to help loosen secretions. Mucinex DM BID. Add nasal saline QID to decrease nasal congestion. Encourage ambulation to help breathing, bowel function, and improve strength. Can hold on lab tomorrow - overall very stable (elevated sugar and WBC from steroids only abnormality). Advised pt likely time time for symptoms to resolve. DVT Prophylaxis: SCD'S INDRA COWAN APRN Aug 27, 2016 11:18 JOHN DA SILVA MD Aug 27, 2016 16:02
--- NOTE | 2016-08-27 12:09 | NUR ---
POST EPINEPHRINE INJ 15 MINUTES POST INJ, HR 93, PT DENIES FEELING TACHYCARDIA. PATIENT REPORTS AN IMPROVEMENT IN WHEEZING. DENIES ANXIETY (KLONOPIN GIVEN WITH INJ). PT APPEARS COMFORTABLE IN BED EATING LUNCH.
--- NOTE | 2016-08-27 14:11 | NUR ---
CM CM IN TO VISIT PT. CM INTRODUCED SELF, EXPLAINED ROLE, PROVIDED CONTACT INFORMATION AND UPDATED THE WHITEBOARD. PT LIVES AT HOME WITH HER AND DENIES HOME NEEDS AT THIS TIME. PT AWARE TO CALL CM SHOULD NEEDS ARISE.
[2016-08-27] MEDS: GUAIFENESIN DM 600mg/30mg TABLET PO SCH ×2 (15:40→21:33)
[2016-08-27] MEDS: SALINE NASAL SPRAY 45ml EA NOSTRIL SCH ×2 (16:43→21:31)
--- NOTE | 2016-08-27 17:58 | NUR ---
SHIFT SUMMARY VSS. RA. REPORTS SOME PAIN WITH COUGHING, PRN NORCO GIVEN FOR THIS. FAIR PO INTAKE TODAY, PT JUST NOT HUNGRY BUT KNOWS THAT SHE NEEDS TO EAT. STILL NO BM TODAY. EXCELLENT URINE OUTPUT. AMBULATED IN HALLWAY TODAY. WHEEZING NOTED IN UPPER AIRWAY, OTHER SHARIF CLEAR. UP AD MAI.
--- NOTE | 2016-08-27 20:05 | NUR ---
eva requests Chantelle for h.aNevaeh Lights low in room, pt. resting
[2016-08-27] MEDS: PRAVASTATIN 40 MG TABLET PO SCH (21:30)
[2016-08-27] MEDS: CETIRIZINE 10 MG TABLET PO SCH (21:31)
--- NOTE | 2016-08-27 21:40 | NUR ---
comfort rash to torso and arms light red. States continued itching. Benadryl given
--- NOTE | 2016-08-27 21:40 | NUR ---
resp wheezing throughout lung [place]. Pt. states dyspnea with activity. Harsh cough at times. Requests Tussionex and [place] for cough
[2016-08-27] MEDS: LORAZEPAM 0.5 MG TABLET PO PRN (23:59)
[2016-08-28] VITALS: BP 154/96; PULSE 84; RESP 22; TEMP 96.7; O2SAT 94
--- NOTE | 2016-08-28 | NUR ---
comfort states continued pain to chest due to coughing, states h.a. has improved. Aurea repeated. Requests Ativan to promote rest.
--- NOTE | 2016-08-28 04:45 | NUR ---
rest sleeps for long intervals. Arouses easily. Denies dyspnea at rest
[2016-08-28 07:55] VITALS: O2SAT 99
[2016-08-28] MEDS: ALBUTEROL/IPRATROPIUM INHAL. 2.5mg-0.5mg/3ml Neb. AEROSOL SCH ×4 (07:55→20:06)
[2016-08-28] MEDS: DOCUSATE SODIUM 100 MG CAPSULE PO SCH ×2 (08:35→20:37)
[2016-08-28] MEDS: ESCITALOPRAM 20 MG TABLET PO SCH (08:35)
[2016-08-28] MEDS: ESTRADIOL 1 MG TABLET PO SCH (08:35)
[2016-08-28] MEDS: CALCIUM 600mg + VIT D 400 TABLET PO SCH (08:35)
[2016-08-28] MEDS: AMLODIPINE 5 MG TABLET PO SCH (08:36)
[2016-08-28] MEDS: BENZONATATE 200 MG CAPSULE PO SCH ×3 (08:36→20:37)
[2016-08-28] MEDS: FAMOTIDINE 20 MG TABLET PO SCH ×2 (08:36→20:36)
[2016-08-28] MEDS: NYSTATIN 500,000 units/5ml Susp UD PO SCH ×4 (08:36→20:38)
[2016-08-28] MEDS: PROPYLTHIOURACIL 50 MG TABLET PO SCH (08:36)
[2016-08-28] MEDS: SALINE NASAL SPRAY 45ml EA NOSTRIL SCH ×4 (08:37→20:39)
[2016-08-28] MEDS: GUAIFENESIN DM 600mg/30mg TABLET PO SCH ×2 (08:37→20:37)
[2016-08-28 08:40] VITALS: BP 161/97; PULSE 99; RESP 16; TEMP 95.9; O2SAT 98
[2016-08-28] MEDS: HYDROCODONE/APAP 5 mg/325 mg TABLET PO PRN ×2 (08:52→20:38)
[2016-08-28] MEDS: MILK OF MAGNESIA 30 ML SUSP PO PRN (08:56)
--- NOTE | 2016-08-28 09:00 | NUR ---
STATUS PT ALERT AND ORIENTED. UP AD MAI IN ROOM. PT C/O'S COUGHING AND FEELING WHEEZY. O2 SAT 98% ROOM AIR. RESPIRATIONS UNLABORED AT 16/MINUTE. NORCO 5 i TAB PO GIVEN FOR COUGH. PT ALSO REPORTS SHE HAS NOT HAD A BM SINCE ADMIT. MILK OF MAGNESIA 30 ML GIVEN. PT ORDERS BREAKFAST. WILL CONTINUE TO MONITOR.
--- NOTE | 2016-08-28 10:10 | NUR ---
UA PT REPORTS HER URINE HAS A "STRONG SMELL." THIS IS REPORTED TO DR. SANTOS. UA SENT TO LAB ORDERED. WILL MONITOR.
[2016-08-28 10:16] LABS: BLOOD, URINE 2+ (NEGATIVE); COLOR,URINE YELLOW (YELLOW); LEUKOCYTE ESTERASE ,URINE NEGATIVE (NEGATIVE); NITRITE,URINE NEGATIVE (NEGATIVE); UROBILINOGEN,URINE 0.2 EU/DL (NORMAL)
[2016-08-28 10:53] LABS: BACTERIA,URINE 1+ (NEGATIVE); RBC,URINE 0-1 /HPF (0-3); WBC,URINE 0-1 /HPF (0-5)
[2016-08-28] MEDS: HYDROCODONE/CHLORPHENIRAMINE ER 5 ML LIQUID PO PRN ×2 (11:18→23:55)
--- NOTE | 2016-08-28 11:20 | NUR ---
COUGH PT REPORTS THAT SHE HAS NO PAIN UNTIL SHE COUGHS. PT REQUESTS SOMETHING FOR HER COUGH. TUSSIONEX GIVEN-SEE EMAR. PT RESTS BETWEEN CARES. WILL MONITOR.
--- NOTE | 2016-08-28 11:28 | PNPDOC ---
Subjective Date DATE: 08/28/16 TIME: 11:15 Subjective F/U: Allergic reaction, dyspnea. About the same. Does feel symptoms improving with Solu-Medrol. Rash to arms decreasing. Still significant cough, minimal sputum production. Thinks acapella helping to loosen secretions. Chest wall sore from coughing. Appetite decreasing. Passing flatus, no stools. Urine smelled funny this morning. No pain with urination. Very tired and weak in general. Objective Vital Signs Vital signs Vital Signs Date Time Temp Pulse Resp B/P Pulse Ox O2 Delivery O2 Flow Rate FiO2 08/28/16 08:40 95.9 99 16 161/97 98 Room Air 08/27/16 00:00 2.00 Height (Feet): 5 Height (Inches): 2.00 Weight (Kilograms): 93.000 General General Appearance: Alert, Obese, Orientated x 3, Well Nourished, Well Developed, Mild Distress, Looks Stated Age Eyes (Brief) Eyes: FOUND: EOMI, PERRL, NOT FOUND: scleral icterus ENMT (Brief) ENMT: FOUND: hearing intact, mucosa moist Neck (Brief) Neck: FOUND: midline, NOT FOUND: nuchal rigidity, spasm Respiratory (Brief) Respiratory: FOUND: clear all hurley (Upper airway noises bilaterally. Coarse. ), equal bilaterally, other (Frequent cough. ), wheezes Cardiovascular (Brief) Cardiac: FOUND: regular rate, regular rhythm, NOT FOUND: pedal edema Abdomen (Brief) Abdominal: FOUND: soft, NOT FOUND: BS normo active x4 (Decreased ), distended, tender Extremities (Brief) Extremity : Side: Bilateral Extremity: leg Extremity Finding: NOT FOUND: edema Musculoskeletal (Brief) Musculoskeletal: FOUND: extremities move equally, NOT FOUND: deformity, loss of motion, spasm Integumentary (Brief) Integumentary: FOUND: dry, warm Neurologic (Brief) Neurological: FOUND: cranial 2-12 intact, motor (intact ) Psychiatric (Brief) Psychiatric: FOUND: alert, normal affect, oriented, other (mildly anxious ) Laboratory Laboratory Laboratory Tests 08/27/16 04:45 Laboratory Tests 08/27/16 04:45 Assessment & Plan Problems: (1) Dyspnea Status: Acute Qualifiers: Dyspnea type: dyspnea on exertion Qualified Codes: R06.09 - Other forms of dyspnea (2) Allergic reaction Status: Acute Assessment & Plan: Possible allergic reaction- ? Latex versus environmental versus medication (3) Hyperglycemia Status: Acute Assessment & Plan: Present on admission- BGM 223. May be secondary to steroid use (4) HTN (hypertension) Status: Chronic (5) Hyperlipidemia Status: Chronic (6) Irritable bowel syndrome Status: Chronic (7) Allergic rhinitis Status: Chronic (8) Hyperthyroidism Status: Chronic (9) Anxiety and depression Status: Chronic (10) Obstructive sleep apnea Status: Chronic (11) Hx of encephalitis Onset Date: ~ 1989 Status: Resolved (12) Headache Status: Acute (13) Obesity Status: Chronic Qualifiers: Obesity type: due to excess calories Obesity severity: non-morbid Qualified Codes: E66.09 - Other obesity due to excess calories Assessment Plan/Intensity of Service UA checked - no evidence for infection. Continue Solu-Medrol 125mg IV q 6 hours. Continue acapella and Mucinex DM to help loosen secretions. Continue lorazepam to help anxiety. Encourage activities as tolerated. Continue neb treatments. Case discussed with CM. Time spent with patient care 35 minutes. DVT Prophylaxis: SCD'S Code Status Full Code Hospital Course Summary Disclaimer The hospital course summary below is not to be considered part of the above Progress Note. Hospital Course Summary 08/24 Admit to outpatient observation under the care of Dr Corey for dyspnea with possible allergic reaction Monitor patient on continuous oximetry to evaluate for hypoxia. Oxygen available as needed to maintain saturations greater than 92% Will scheduled DuoNeb breathing treatments 4 times a day and Pulmicort twice a day for ongoing dyspnea and wheezing. Patient receives Solu-Medrol 125 milligrams IV while in the emergency room. We will give her a oral dose of prednisone 60 milligrams at 1700 today and then change her to daily starting tomorrow morning. Monitor Accu-Cheks as patient was hyperglycemic on arrival. This may be secondary to steroid use. Pepcid 20 milligrams IV twice a day as an H2 demario given that there is a potential ALLERGIC reaction. Benadryl available as needed. Tessalon pearls as needed 3 times a day for coughing. Ativan as needed for anxiety and to help with sleeping. Patient was taken off of her Cozaar yesterday and started on Norvasc 5 milligrams daily. We will continue to monitor blood pressure. Recheck TSH, hemoglobin A1c, and respiratory viral panel mild for laboratory completeness on admission. Recheck CBC and BMP tomorrow morning to follow blood counts, renal function and electrolytes Up in room as needed. SCDs to bilateral lower extremity for DVT prophylaxis Will discuss further plan of care with Dr. Corey At time of discharge medical care will return to her primary care provider, Dr. Sommers 08/25 Overall breathing appears to be improved. Breath sounds are clear bilaterally without evidence of wheezing. Patient does complain of a frontal and temporal headache. Will give one-time dose of Toradol 30 mg IV along with an oral hydrocodone now. Continue with steroids, currently on Solu-Medrol 62.5 milligrams IV every 6 hours. Will convert over to oral at time of discharge. Continue with scheduled breathing treatments WBC count elevated today at 16.7. She is afebrile. This is likely secondary to steroid use. Blood pressure this morning is elevated 154/97, patient has not yet had her Norvasc. Will continue to monitor. Patient is hopeful that she can discharge home later today 08/26 Peak flows again today were poor (335). 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 Wheezing on exam this morning. Patient also developed a rash today. Soft tissue x-rays of the neck were negative. Continue with DuoNeb treatments and steroids plus antihistamine. Will discontinue Pulmicort given her propensity towards headaches from breathing treatments. Start nystatin for suspected thrush. MiraLAX per request. 08/27 No better - wheezes and becomes dyspneic with activity. Rash spreading. PF slightly better today. Give epi 0.3 mL x1 given worsening sx - may make anxiety worse so will offer clonazepam x1 if she wants it. Mucinex for congestion. Concerned that her symptoms are worsening in this environment. She needs frameman f/u. 08/28 About the same. Does feel symptoms improving with Solu-Medrol. Rash to arms decreasing. Still significant cough, minimal sputum production. Thinks acapella helping to loosen secretions. Chest wall sore from coughing. Appetite decreasing. Passing flatus, no stools. Urine smelled funny this morning. No pain with urination. Very tired and weak in general. UA checked - no evidence for infection. Continue Solu-Medrol 125mg IV q 6 hours. Continue acapella and Mucinex DM to help loosen secretions. Continue lorazepam to help anxiety. Encourage activities as tolerated. Continue neb treatments. JOHN SANTOS MD Aug 28, 2016 11:18
[2016-08-28] MEDS: DiphenhydrAMINE 25 MG CAPSULE PO PRN (11:44)
[2016-08-28 11:50] VITALS: O2SAT 97
[2016-08-28] MEDS: LORAZEPAM 0.5 MG TABLET PO PRN ×2 (13:19→23:55)
--- NOTE | 2016-08-28 13:20 | NUR ---
REST PT C/O'S NOT BEING ABLE TO REST DUE TO THE SOLU MEDROL. PT REQUESTS ATIVAN OR SOMETHING TO HELP HER RELAX. ATIVAN 0.5 MG PO GIVEN. WILL MONITOR.
[2016-08-28 15:18] VITALS: BP 149/79; PULSE 95; RESP 16; TEMP 96.3; O2SAT 94
[2016-08-28] MEDS ORDERED: BISACODYL 10 MG SUPPOSITORY RECTALLY PRN (17:45)
--- NOTE | 2016-08-28 18:33 | NUR ---
STATUS PT CONTINUES UP AD MAI. PT ABLE TO REST FOR SHORT INTERVALS THIS AFTERNOON. PT STATES SHE HAS HAD "A LITTLE" BM THIS AFTERNOON. PT MADE AWARE THAT DULCOLAX SUPPOSITORY IS AVAILABLE IF PT WANTS IT. PT STATES SHE WILL WAIT JUST A BIT AND SEE IF SHE NEEDS IT.
[2016-08-28 20:06] VITALS: O2SAT 97
[2016-08-28] MEDS: IBUPROFEN 600 MG TABLET PO PRN (20:37)
[2016-08-28] MEDS: PRAVASTATIN 40 MG TABLET PO SCH (20:37)
[2016-08-28] MEDS: CETIRIZINE 10 MG TABLET PO SCH (20:37)
--- NOTE | 2016-08-28 20:40 | NUR ---
comfort requests Motrin and [place] for pain to chest area due to harsh coughing. Lungs with wheezing, denies dyspnea at rest
[2016-08-28] MEDS: DiphenhydrAMINE 50 MG/ML INJECTION IV PRN (20:42)
--- NOTE | 2016-08-28 23:55 | NUR ---
rest Tussionex requested for cough, Ativan requested to promote rest
[2016-08-29 00:38] VITALS: BP 162/95; PULSE 84; RESP 20; TEMP 96.2; O2SAT 94
--- NOTE | 2016-08-29 04:39 | NUR ---
rest sleeps much of night, resp. unlabored
[2016-08-29 07:49] VITALS: BP 152/92; PULSE 79; RESP 14; TEMP 96.6; O2SAT 97
[2016-08-29 08:04] VITALS: PULSE 106; RESP 16
[2016-08-29 08:50] VITALS: O2SAT 97
[2016-08-29] MEDS: ALBUTEROL/IPRATROPIUM INHAL. 2.5mg-0.5mg/3ml Neb. AEROSOL SCH ×2 (08:56→13:14)
[2016-08-29] MEDS: SALINE NASAL SPRAY 45ml EA NOSTRIL SCH ×2 (09:19→13:33)
[2016-08-29] MEDS: BENZONATATE 200 MG CAPSULE PO SCH (09:19)
[2016-08-29] MEDS: NYSTATIN 500,000 units/5ml Susp UD PO SCH ×2 (09:19→13:33)
[2016-08-29] MEDS: PROPYLTHIOURACIL 50 MG TABLET PO SCH (09:19)
[2016-08-29] MEDS: ESTRADIOL 1 MG TABLET PO SCH (09:19)
[2016-08-29] MEDS: DOCUSATE SODIUM 100 MG CAPSULE PO SCH (09:20)
[2016-08-29] MEDS: ESCITALOPRAM 20 MG TABLET PO SCH (09:20)
[2016-08-29] MEDS: CALCIUM 600mg + VIT D 400 TABLET PO SCH (09:20)
[2016-08-29] MEDS: FAMOTIDINE 20 MG TABLET PO SCH (09:20)
[2016-08-29] MEDS: GUAIFENESIN DM 600mg/30mg TABLET PO SCH (09:20)
[2016-08-29] MEDS: AMLODIPINE 5 MG TABLET PO SCH (09:20)
[2016-08-29] MEDS: IBUPROFEN 600 MG TABLET PO PRN (09:21)
[2016-08-29] MEDS: POLYETHYL.GLYCOL 3350 PACKET 17gm PO PRN (09:21)
--- NOTE | 2016-08-29 10:32 | NUR ---
NORMAN CM IN TO VISIT PT. PT REPORTS SHE HAS A NEBULIZER AT HOME AND WILL NOT NEED ONE ON DC IF DR CONTINUES THIS. PT AWARE TO CALL CM SHOULD NEEDS ARISE.
[2016-08-29] MEDS: HYDROCODONE/CHLORPHENIRAMINE ER 5 ML LIQUID PO PRN (11:45)
[2016-08-29] MEDS ORDERED: PredniSONE 20 MG TABLET PO ONE (12:00)
--- NOTE | 2016-08-29 12:00 | NUR ---
Status Patient alert and oriented x3. VSS. On RA. C/o pain, PRN ibuprofen and tussinex given. Patient has strong cough, non-productive. Patient ambulated in halls with standby assist of geriatric nursing assistant this AM. Patient very fatigued, states she is frustrated that she is still not feeling much better. IVL right upper arm, flushes well. Adequate output, small BM this morning. Currently sitting up in bed, eating lunch. Will continue to monitor.
--- NOTE | 2016-08-29 12:08 | PNPDOC ---
Subjective Date DATE: 08/29/16 TIME: 11:59 Subjective F/U: Allergic reaction, dyspnea. Still with significant cough. Minimal sputum production. Feels is loosening up more from yesterday. Maintaining saturations. Appetite decreased. Stools slow. Urinating well. Ambulating, but tires readily. Objective Vital Signs Vital signs Vital Signs Date Time Temp Pulse Resp B/P Pulse Ox O2 Delivery O2 Flow Rate FiO2 08/29/16 09:02 106 08/29/16 08:50 24 97 08/29/16 07:49 96.6 152/92 Room Air 08/27/16 00:00 2.00 Height (Feet): 5 Height (Inches): 2.00 Weight (Kilograms): 92.300 General General Appearance: Alert, Obese, Orientated x 3, Well Nourished, Well Developed, Looks Stated Age Eyes (Brief) Eyes: FOUND: EOMI, PERRL, NOT FOUND: scleral icterus ENMT (Brief) ENMT: FOUND: hearing intact, mucosa moist Neck (Brief) Neck: FOUND: midline, NOT FOUND: nuchal rigidity, spasm Respiratory (Brief) Respiratory: FOUND: clear all hurley (Upper airway noises. Frequent harsh cough. ), equal bilaterally, wheezes (Faint, scattered.) Cardiovascular (Brief) Cardiac: FOUND: regular rate, regular rhythm, NOT FOUND: pedal edema Abdomen (Brief) Abdominal: FOUND: BS normo active x4, soft, NOT FOUND: distended, tender Extremities (Brief) Extremity : Side: Bilateral Extremity: leg Extremity Finding: NOT FOUND: edema Musculoskeletal (Brief) Musculoskeletal: FOUND: extremities move equally, NOT FOUND: deformity, loss of motion, spasm Integumentary (Brief) Integumentary: FOUND: dry, warm Neurologic (Brief) Neurological: FOUND: cranial 2-12 intact, motor (Intact ) Psychiatric (Brief) Psychiatric: FOUND: alert, attentive, normal affect Assessment & Plan Problems: (1) Dyspnea Status: Acute Qualifiers: Dyspnea type: dyspnea on exertion Qualified Codes: R06.09 - Other forms of dyspnea (2) Allergic reaction Status: Acute Assessment & Plan: Possible allergic reaction- ? Latex versus environmental versus medication (3) Asthma Status: Acute Qualifiers: Asthma severity: unspecified severity Asthma complication type: with acute exacerbation Qualified Codes: J45.901 - Unspecified asthma with (acute) exacerbation (4) Hyperglycemia Status: Acute Assessment & Plan: Present on admission- BGM 223. May be secondary to steroid use (5) HTN (hypertension) Status: Chronic (6) Hyperlipidemia Status: Chronic (7) Irritable bowel syndrome Status: Chronic (8) Allergic rhinitis Status: Chronic (9) Hyperthyroidism Status: Chronic (10) Anxiety and depression Status: Chronic (11) Obstructive sleep apnea Status: Chronic (12) Hx of encephalitis Onset Date: ~ 1989 Status: Resolved (13) Headache Status: Acute (14) Obesity Status: Chronic Qualifiers: Obesity type: due to excess calories Obesity severity: non-morbid Qualified Codes: E66.09 - Other obesity due to excess calories Assessment Plan/Intensity of Service Will change to Prednisone 60mg daily. Continue neb treatment, acapella, cough suppressants. Continue lorazepam to help anxiety. Will d/c to home for continuation of care. F/U with Dr Sommers in ~ 1 week -- this Saturday or Saturday. See orders for details. Case discussed with CM. Time spent with patient care and discharge 35 minutes. DVT Prophylaxis: SCD'S Code Status Full Code Hospital Course Summary Disclaimer The hospital course summary below is not to be considered part of the above Progress Note. Hospital Course Summary 08/24 Admit to outpatient observation under the care of Dr Corey for dyspnea with possible allergic reaction Monitor patient on continuous oximetry to evaluate for hypoxia. Oxygen available as needed to maintain saturations greater than 92% Will scheduled DuoNeb breathing treatments 4 times a day and Pulmicort twice a day for ongoing dyspnea and wheezing. Patient receives Solu-Medrol 125 milligrams IV while in the emergency room. We will give her a oral dose of prednisone 60 milligrams at 1700 today and then change her to daily starting tomorrow morning. Monitor Accu-Cheks as patient was hyperglycemic on arrival. This may be secondary to steroid use. Pepcid 20 milligrams IV twice a day as an H2 demario given that there is a potential ALLERGIC reaction. Benadryl available as needed. Tessalon pearls as needed 3 times a day for coughing. Ativan as needed for anxiety and to help with sleeping. Patient was taken off of her Cozaar yesterday and started on Norvasc 5 milligrams daily. We will continue to monitor blood pressure. Recheck TSH, hemoglobin A1c, and respiratory viral panel mild for laboratory completeness on admission. Recheck CBC and BMP tomorrow morning to follow blood counts, renal function and electrolytes Up in room as needed. SCDs to bilateral lower extremity for DVT prophylaxis Will discuss further plan of care with Dr. Corey At time of discharge medical care will return to her primary care provider, Dr. Sommers 08/25 Overall breathing appears to be improved. Breath sounds are clear bilaterally without evidence of wheezing. Patient does complain of a frontal and temporal headache. Will give one-time dose of Toradol 30 mg IV along with an oral hydrocodone now. Continue with steroids, currently on Solu-Medrol 62.5 milligrams IV every 6 hours. Will convert over to oral at time of discharge. Continue with scheduled breathing treatments WBC count elevated today at 16.7. She is afebrile. This is likely secondary to steroid use. Blood pressure this morning is elevated 154/97, patient has not yet had her Norvasc. Will continue to monitor. Patient is hopeful that she can discharge home later today 08/26 Peak flows again today were poor (335). 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 Wheezing on exam this morning. Patient also developed a rash today. Soft tissue x-rays of the neck were negative. Continue with DuoNeb treatments and steroids plus antihistamine. Will discontinue Pulmicort given her propensity towards headaches from breathing treatments. Start nystatin for suspected thrush. MiraLAX per request. 08/27 No better - wheezes and becomes dyspneic with activity. Rash spreading. PF slightly better today. Give epi 0.3 mL x1 given worsening sx - may make anxiety worse so will offer clonazepam x1 if she wants it. Mucinex for congestion. Concerned that her symptoms are worsening in this environment. She needs firer locomotive crane f/u. 08/28 About the same. Does feel symptoms improving with Solu-Medrol. Rash to arms decreasing. Still significant cough, minimal sputum production. Thinks acapella helping to loosen secretions. Chest wall sore from coughing. Appetite decreasing. Passing flatus, no stools. Urine smelled funny this morning. No pain with urination. Very tired and weak in general. UA checked - no evidence for infection. Continue Solu-Medrol 125mg IV q 6 hours. Continue acapella and Mucinex DM to help loosen secretions. Continue lorazepam to help anxiety. Encourage activities as tolerated. Continue neb treatments. 08/29 Still with significant cough. Minimal sputum production. Feels is loosening up more from yesterday. Maintaining saturations. Appetite decreased. Stools slow. Urinating well. Ambulating, but tires readily. Will change to Prednisone 60mg daily. Continue neb treatment, acapella, cough suppressants. Continue lorazepam to help anxiety. Will d/c to home for continuation of care. F/U with Dr Sommers in ~ 1 week -- this Saturday or Saturday. See orders for details. JOHN SANTOS MD Aug 29, 2016 12:03
[2016-08-29] MEDS ORDERED: NYST5ORA7 PO (12:16)
[2016-08-29] MEDS ORDERED: HYDR115S2 PO (12:16)
[2016-08-29] MEDS ORDERED: GUAI-782 PO (12:16)
[2016-08-29] MEDS ORDERED: DOCU-168 PO (12:16)
[2016-08-29] MEDS ORDERED: PHEN20SP2 PO (12:16)
[2016-08-29] MEDS ORDERED: SODI45SP7 EA NOSTRIL (12:16)
[2016-08-29] MEDS ORDERED: DIPH25CA84 PO (12:16)
[2016-08-29] MEDS ORDERED: BENZ200C36 PO (12:16)
[2016-08-29] MEDS ORDERED: CETI-269 PO (12:16)
[2016-08-29] MEDS ORDERED: HYDR-4246 PO (12:16)
[2016-08-29] MEDS ORDERED: IPRA3AMP AEROSOL (12:16)
[2016-08-29 13:10] VITALS: O2SAT 97
--- NOTE | 2016-08-29 13:55 | NUR ---
Discharge Patient discharged to home at this time. Discharge instructions discussed with patient who voiced understanding. Instructions sent home with patient along with paper copies of prescriptions. IV d/c'd with catheter tip intact.
--- NOTE | 2016-08-30 23:04 | DSF ---
Date of initiation of observation 08/24/2016, date of admission 08/25/2016, date of discharge 08/29/2016. ADMISSION DIAGNOSIS Dyspnea. DISCHARGE DIAGNOSES Allergic reaction. Asthma with acute exacerbation. ASSOCIATED CONDITIONS AND COMPLICATIONS Dyspnea. Hyperglycemia secondary to steroids. Hypertension. Hyperlipidemia. Allergic rhinitis. Irritable bowel syndrome. Hyperthyroidism. Obstructive sleep apnea. Anxiety/depression. Obesity. PROCEDURES None. CONSULTS None. CLINICAL RESUME The patient is a 55-year-old female who presents to [facility] Emergency Room secondary to acute dyspnea. She reports she was seen by her primary provider (Dr. Sommers) yesterday for dyspnea and wheezing. At that time she was checked for influenza which was negative. She was started on albuterol and steroids. There was a question if the patient was possibly having an allergic reaction - she had a questionable exposure to latex several days ago. She was also on losartan which was discontinued yesterday due to question regarding her ARB allergy. She reported that overnight she utilized albuterol inhaler, nebulizer and steroids, but continued to feel very short of breath. She was unable to sleep. She presented to emergency room for evaluation. There she was found to be hyperventilating, with room air saturations 98%. Pulse was elevated at 112. Laboratory was essentially unremarkable other than blood glucose elevated at 223 and white count slightly elevated 11.2. Chest x-ray showed no acute cardiopulmonary findings. In emergency room she was given DuoNeb, Benadryl, Solu-Medrol and Pepcid. She continued to have significant dyspnea. There was concern for possible allergic reaction. Hospitalist service was therefore contacted and patient was placed in outpatient observation status at [facility] for further evaluation and treatment. For complete details of the H&P, refer to that document. LABORATORY White blood count is 11.2 with hemoglobin 13.1, hematocrit 40.5, MCV 93.2 and platelets 312,000. Serum sodium is 142, potassium 3.6, chloride 105, CO2 18, anion gap 19, BUN 14 with creatinine 0.8, GFR 75 and blood glucose 233. Hemoglobin A1c is 5.8%. Transaminases are unremarkable. Troponin I is less than 0.012. TSH is 1.05. D-dimer is less than 150. UA reveals low specific gravity at 1.010 with 2+ glucose, 2+ blood and 1+ bacteria. Respiratory PCR panel is completely negative. HOSPITAL COURSE The patient was placed in outpatient observation status at [facility] under the care of Dr. Corey. She was placed on continuous oxygen monitoring. Oxygen was made available as needed to help maintain saturations greater than 92%. Nebulized treatments of DuoNeb were initiated q.i.d. along with Pulmicort b.i.d. She was started on Solu-Medrol 125 mg in emergency room. Later that day she was given 60 mg of prednisone which was continued daily on hospital day #1. Accu-Cheks were monitored secondary to hyperglycemia. We did start Pepcid 20 mg IV b.i.d. to provide H2 demario in case of potential allergic reaction. Benadryl was made available as needed. Tessalon Perles were utilized q.i.d. routinely to help minimize cough. Ativan was made available as needed for anxiety. As Cozaar was stopped, Norvasc was started 5 mg daily. Blood pressure was monitored. SCDs were initiated for DVT prophylaxis. Her hospital course was one of variability. By hospital day #1 her breathing was somewhat improved, with breath sounds showing less wheezing. She was having significant frontal and temporal headache. She is given a one-time dose of Toradol 30 mg as well as oral hydrocodone. Steroids were changed to Solu-Medrol 62.5 IV q.6h. Breathing treatments were continued. White count did increase but most likely this was steroid effect. As her symptoms were still quite problematic, on hospital day #1 she was changed to inpatient admission. Peak flows were fairly poor. By the 9th she did develop some rash toward neck. Soft tissue x-rays were checked and returned negative. Treatments were continued. As she was having some oral discomfort, Nystatin was initiated for suspected thrush. MiraLAX was made available to help with constipation. Her respiratory symptoms stayed about the same. By the 10th we did try a one-time dose of epinephrine. The patient did tolerate this quite well and thought it was somewhat beneficial. Mucinex was initiated for congestion. Symptoms were still very problematic. We reinstituted Solu-Medrol on the . Acapella was initiated to help loosen secretions. Gradually her wheezing did make some improvement. By time of discharge she was maintaining saturations well on room air. She was only having faint wheezing. She was still having a hoarse cough but little congestion. Vitals were stable and she was afebrile. She was taking p.o. well. She was ambulating well. As her symptoms had stabilized, she was able to be discharged to home. Narrative disclaimer: Above narrative is a brief summary of the patient's hospitalization; for complete details of the hospital course, refer to the medical record. DISCHARGE CONDITION Stable/good. DIET Regular. ACTIVITIES As tolerated. MEDICATIONS Prednisone 60 mg daily. Tessalon Perles 200 mg t.i.d. routinely. Zyrtec 10 mg q.h.s. Benadryl 25 mg p.r.n. allergies. Colace 100 mg b.i.d. to soften stools. Mucinex DM b.i.d. [place] 5/325 one to two q.4h. p.r.n. pain. Tussionex 5 ml q.12h. p.r.n. cough. DuoNeb unit-dose breathing treatments q.i.d. Nystatin 5 ml q.i.d. x 10 days. Chloraseptic p.r.n. Nasal saline two sprays each nostril q.i.d. EpiPen as needed for severe allergic reaction. Ventolin HFA 1 puff q.4h. p.r.n. Norvasc 5 mg daily. Calcium with vitamin D 600 mg daily. Lexapro 20 mg daily. Estrace 1 mg daily. Ibuprofen 600 mg q.4h. p.r.n. Lorazepam 0.5 mg q.6h. p.r.n. anxiety. Omeprazole 20 mg a.c. breakfast. Pravastatin 40 mg q.h.s. PTU 50 mg daily. STOP Losartan. FOLLOWUP The patient will follow up with Dr. Sommers within the week. INSTRUCTION TO PATIENT The patient was instructed on her diagnosis and treatments provided. We encouraged to utilize Acapella to help loosen secretions. Encouraged her be adherent with medications. She will watch for temperature elevation greater than 100.4, worsening breathing or coughing up blood. Should problems or need occur she can be in contact with Dr. Sommers. If symptoms become quite dire she could present to emergency room for acute evaluation. She voiced understanding of the above. Time spent with discharge greater than 35 minutes. SALAZARD
== END 2016-08-29 13:56 | disposition home or self-care (01) | DRG 916 ==
LOC: ED 09:56 → EDHOLD 12:45 → MED 13:13 → OBSVTOIN 08-25 15:41
PROVIDERS: ADMIT Internal Medicine; ATTEND Hospitalist
DX: T78.40XA Allergy, unspecified, initial encounter (principal); J45.901 Unspecified asthma with (acute) exacerbation; X58.XXXA Exposure to other specified factors, initial encounter; I10 Essential (primary) hypertension; E78.5 Hyperlipidemia, unspecified; F32.9 Major depressive disorder, single episode, unspecified; F41.9 Anxiety disorder, unspecified; K58.9 Irritable bowel syndrome, unspecified; G47.33 Obstructive sleep apnea (adult) (pediatric); E05.90 Thyrotoxicosis, unspecified without thyrotoxic crisis or storm; R73.9 Hyperglycemia, unspecified; J30.9 Allergic rhinitis, unspecified; E66.9 Obesity, unspecified; R51 Headache; T38.0X5A Adverse effect of glucocorticoids and synthetic analogues, initial encounter; Z79.52 Long term (current) use of systemic steroids; Z68.37 Body mass index [BMI] 37.0-37.9, adult
CPT/HCPCS: 36415; 80048; 80053; 81001; 82948; 83036; 84443; 84484; 85007; 85025; 85027; 85379; 87486; 87581; 87633; 87798; 93005; 94010; 94640; 94667; 94668; 96365; 96375; 99218

== ENCOUNTER 2016-08-30 14:54 | Observation (INO) | payer OTHER ==
[~2016-08-30] VITALS: Ht 162.6 cm; Wt 92.3 kg
[~2016-08-30 14:54] MED LIST changes: +ALBU18HF2 ORAL INH; +AMLO5TAB2 PO; +BENZ200C36 PO; +CETI-269 PO; -CITA-49 PO; +DIPH25CA84 PO; +DOCU-168 PO; +EPIN0.3P2 IM; +ESCI20TA30 PO; +ESTR1TAB21 PO; +GUAI-782 PO; +HYDR-4246 PO; +HYDR115S2 PO; +IBUP-1724 PO; +IPRA3AMP AEROSOL; +LORA0.5T2 PO; -LOSA50TA52 PO; +NYST5ORA7 PO; +PHEN20SP2 PO; +PRED20TA PO; +SODI45SP7 EA NOSTRIL
--- OUTSIDE RECORDS SUMMARY | 2016-08-30 15:00 | XMS REPORT | Continuity of Care Document ---
Author Author [facility] Organization [facility] Address Unknown Phone Unavailable Support Name Relationship Address Phone JOHN SANTOS MD Caregiver [address] [place] [address] [place] [address] SOTO MD Caregiver [address] [place] [id number] Unavailable OVIDIO VICTOR DO Caregiver [address] [place] [address] Unavailable KELLEY VASQUEZ MD Caregiver [address] [place] [address] [place] [address] Unavailable DEMAR MURILLO Next Of Kin [address] [place] [address] [phone] c Insurance Providers Guarantor Mally Murillo Address [address] [place] [address] Email DENIED 08-24-16 [facility] Policy Number [id number] Subscriber's Name Demar Murillo Relationship 01 Spouse Group Number [id number] Advance Directives Directive Response Recorded Date/Time Advanced Directives Type None 08/24/16 9:57am Ordered Resuscitation Status Full Code 08/24/16 12:45pm Resuscitation Documents on File No 08/24/16 1:16pm DPOA for Healthcare Only No 08/24/16 2:32pm Living Will No 08/24/16 1:16pm Problems Active Problems Medical Problem Onset Date Status Allergic reaction Unknown Acute Allergic rhinitis Unknown Chronic Anxiety and depression Unknown Chronic Asthma Unknown Acute Dyspnea Unknown Acute HTN (hypertension) Unknown Chronic Headache Unknown Acute History of GI bleed ~07/2016 Hx of encephalitis ~1989 Resolved Hyperglycemia Unknown Acute Hyperlipidemia Unknown Chronic Hyperthyroidism Unknown Chronic Irritable bowel syndrome Unknown Chronic Obesity Unknown Chronic Obstructive sleep apnea Unknown Chronic Medications Current Home Medications Medication Dose Units Route Directions Days Qty Instructions Start Date Albuterol Sulfate (Ventolin Hfa 90 Mcg/Actuation) 18 Gm Hfa.aer.ad 1 Puff Oral Inhalation Every 4 Hours as needed for Shortness Of Air/Wheezing 08/24/16 Amlodipine Besylate 5 Mg Tablet 5 Mg Oral Daily 08/24/16 Benzonatate 200 Mg Capsule 200 Mg Oral Three Times A Day for Cough 30 Capsule 08/29/16 Calcium Carbonate/Vitamin D3 (Calcium + D 600 Mg Tablet) 1 Tab Tablet 1 Tab Oral Daily 02/22/10 Cetirizine Hcl 10 Mg Tablet 10 Mg Oral Bedtime 30 Tablet 08/29/16 Diphenhydramine Hcl (Benadryl) 25 Mg Capsule 25 Mg Oral Every 4 Hours as needed for Allery Symptoms 30 Capsule 08/29/16 Docusate Sodium (Colace) 100 Mg Capsule 100 Mg Oral Twice A Day for Stool Softening 50 Capsule 08/29/16 Epinephrine (Epipen) 0.3 Mg/0.3 Ml Auto.injct 0.3 Mg Intramusc As Needed for Allery Symptoms 2 08/26/16 Escitalopram Oxalate 20 Mg Tablet 20 Mg Oral Daily 08/24/16 Estradiol (Estrace) 1 Mg Tablet 1 Mg Oral Daily 08/24/16 Guaifenesin/Dextromethorphan (Mucinex Dm Er 600-30 Mg Tablet) 1 Each Tab.er.12h 1 Tab Oral Every 12 Hours 30 Tablet 08/29/16 Hydrocodone/Acetaminophen ([place] 5-325 Tablet) 5-325 Tablet 1-2 Tab Oral Every 4 Hours as needed for Pain 30 Tablet 08/29/16 Hydrocodone/Chlorphen P-Stirex (Tussionex Pennkinetic Susp) 115 Ml Karuna.er.12h 5 Ml Oral Every 12 Hours as needed for Cough 100 08/29/16 Ibuprofen 200 Mg Tablet 600 Mg Oral Every 4 Hours as needed for Pain 08/24/16 Ipratropium/Albuterol Sulfate (Iprat-Albut 0.5-3(2.5) Mg/3 Ml) 3 Ml Ampul.neb 3 Ml Aerosol Tx. Resp.tx 4 Times A Day for Shortness Of Air/Wheezing 40 Amp 08/29/16 Lorazepam 0.5 Mg Tablet 0.5 Mg Oral Every 6 Hours as needed for Anxiety 08/24/16 Nystatin 100,000 Unit/1 Ml Oral.susp 5 Ml Oral Four Times Daily for Thrush 200 Milliliter 08/29/16 Omeprazole 20 Mg Capsule.dr 20 Mg Oral Before Breakfast 07/19/16 Phenol (Chloraseptic) 20 Ml Mckinney 3 Mckinney Oral Every 2 Hours as needed for Sore Throat 1 Bottle 08/29/16 Pravastatin Sodium 40 Mg Tablet 40 Mg Oral Bedtime 02/22/10 Prednisone 20 Mg Tablet 60 Mg Oral Taper Q3d 08/24/16 Propylthiouracil 50 Mg Tablet 50 Mg Oral Daily 02/22/10 Sodium Chloride ([place]) 450 Mckinney/45 Ml Mckinney 2 Mckinney Each Nostril Four Times Daily 1 Bottle 08/29/16 Past Home Medications Medication Directions Ordered Status Guaifenesin/Dextromethorphan (Robitussin Offlu-Rxfgx-Kpok Dm) 1 Each Capsule, 2 Cap Oral Every 4 Hours as needed for Constipation 08/24/16 Discontinued Losartan Potassium 100 Mg Tablet, 100 Mg Oral Daily 08/24/16 Discontinued Social History Social History Problem Response Recorded Date/Time Onset Date Status Reason for Hospitalization dyspnea 08/29/2016 1:20pm Not Applicable Not Applicable Hx Substance Use No 08/24/2016 10:25am Not Applicable Not Applicable Hx Alcohol Use Y OCC 08/24/2016 10:25am Not Applicable Not Applicable Has the pt used tobacco in the last 12 months No 08/24/2016 1:17pm Not Applicable Not Applicable Query Response Start Date Stop Date Smoking Status Never smoker Hospital Discharge Instructions Instructions: Care Instructions: Reason for Hospitalization: dyspnea I was in the hospital because (patient own words): shortness of breath, cough Discharge Diet: Regular Discharge Activity: As tolerated Follow Up Appointments: Dr Vasquez on 08/31 or 09/03 Pending Lab / Results: No Pending Lab Patient Instructions: Use acapella QID Wound/Incision Care: n/a Pain Management/Treatment: Tylenol as needed Expected Signs/Symptoms: Decreasing cough and congestion. Improvement of strength Notify Physician If: Temp >100.4. Coughing up blood. During Business Hours:: Please call the physician's office at After Business Hours:: Please call [phone] and have the dozer operator page the physician. Condition at time of discharge: Good Plan of Care Discharge Date 08/29/16 1:56pm Disposition 01 DISCHARGED HOME, SELF-CARE Instructions/Education Provided General Allergic Reaction (ED) Prescriptions See Medication Section Care Plan and Goals See Discharge Instructions Section Functional Status Query Response Date Recorded Mobility Status Ambulatory August 29, 2016 1:20pm Assistive Devices None August 29, 2016 1:20pm Activity Limitations Shortness of breath August 29, 2016 1:20pm Feeding Ability Independent August 29, 2016 1:20pm Toileting Ability Independent August 29, 2016 1:20pm Grooming Ability Independent August 29, 2016 1:20pm Dressing Ability Independent August 29, 2016 1:20pm Driving Ability Independent August 29, 2016 1:20pm Housework Ability Independent August 29, 2016 1:20pm Meal Preparation Ability Independent August 29, 2016 1:20pm Stair Climbing Ability Independent August 29, 2016 1:20pm Ability to complete ADL's impeded by No change August 29, 2016 1:20pm Cognitive/Perceptual Impairments None August 29, 2016 1:20pm Allergies, Adverse Reactions, Alerts Allergen Type Severity Reaction Status Last Updated meperidine HCl Allergy Intermediate ITCH,RED Active 08/24/16 oxycodone HCl Allergy Intermediate HIVES Active 08/24/16 Morphine Allergy Intermediate RED,ITCHING Active 08/24/16 Codeine Allergy Intermediate HIVES Active 08/24/16 Methimazole Allergy Intermediate HIVES,ITCH Active 08/24/16 Latex Allergy Intermediate PINK EYE, ASTHMA LIKE REACTION, SOA Active 12/03 Immunizations Query Response on File Recorded Date/Time Hx Influenza Vaccination Y 2015 08/24/16 1:17pm Hx Pneumococcal Vaccination Y fall 200708/24/16 1:17pm Hx Influenza Vaccination Y 2015 08/24/16 1:17pm Vital Signs Acute Vital Signs Vital Response Date/Time Temperature (Fahrenheit) 96.6 deg F (96.8 - 99.1) 08/29/2016 7:49am Temperature (Calculated Celsius) 35.50554 degrees C (36.0 - 37.3) 08/29/2016 7:49am Temperature Source Temporal 07/20/2016 10:21am Pulse Rate (adult) 106 bpm (60 - 100) 08/29/2016 8:04am Respiratory Rate 16 breaths/min (10 - 20) 08/29/2016 8:04am O2 Sat by Pulse Oximetry 97 % (90 - 100) 08/29/2016 1:10pm Oxygen Delivery Method Room Air 08/29/2016 7:49am Oxygen Flow Rate 2.00 L/min 08/27/2016 12:00am Blood Pressure 152/92 mm Hg 08/29/2016 7:49am Blood Pressure Source Automatic Cuff 08/29/2016 7:49am Height (Feet) 5 feet 08/29/2016 12:08pm Height (Inches) 2.00 inches 08/29/2016 12:08pm Weight (Kilograms) 92.300 kg 08/29/2016 7:51am Body Mass Index (BMI) 38.0 08/24/2016 1:15pm Results Laboratory Results Test Name Result Units Flags Reference Collection Date/Time Result Date/ Time Comments Free Thyroxine 0.85 NG/DL 0.78-2.19 07/06/2016 10:52am 07/09/2016 1: 05am White Blood Count 18.3 T/MM3 H 4.5-11.0 08/27/2016 4:45am 08/27/2016 5: 50am Red Blood Count 4.16 M/MM3 4.00-5.20 08/27/2016 4:45am 08/27/2016 5: 50am Hemoglobin 12.5 GM/DL 12-16 08/27/2016 4:45am 08/27/2016 5:50am Hematocrit 39.1 % 36-46 08/27/2016 4:45am 08/27/2016 5:50am Mean Corpuscular Volume 94.0 UM3 80-100 08/27/2016 4:45am 08/27/2016 5: 50am Mean Corpuscular Hemoglobin 30.0 UUG 26-34 08/27/2016 4:45am 2016 5:50am Mean Corpuscular Hemoglobin Concent 32.0 GM/DL 31-37 08/27/2016 4:45am 08/27/2016 5:50am RDW Standard Deviation 46.7 FL 36.9-50.2 08/27/2016 4:45am 08/27/2016 5 :50am Platelet Count 292 T/MM3 130-400 08/27/2016 4:45am 08/27/2016 5:50am Mean Platelet Volume 9.4 UM3 9.4-12.4 08/27/2016 4:45am 08/27/2016 5: 50am Neutrophils (%) (Auto) 83.0 % H 33-66 08/24/2016 10:37am 08/24/2016 10: 43am Lymphocytes (%) (Auto) 12.6 % L 23-45 08/24/2016 10:37am 08/24/2016 10: 43am Monocytes (%) (Auto) 3.5 % 0-9.0 08/24/2016 10:37am 08/24/2016 10:43am Eosinophils (%) (Auto) 0.3 % 0-4 08/24/2016 10:37am 08/24/2016 10:43am Basophils (%) (Auto) 0.2 % 0-2 08/24/2016 10:37am 08/24/2016 10:43am Immature Granulocyte % (Auto) 0.4 % 0.0-0.5 08/24/2016 10:37am 2016 10:43am Absolute Neutrophils (auto) 9.3 T/MM3 H 1.8-7.7 08/24/2016 10:37am 08/24 10:43am Absolute Lymphocytes (auto) 1.4 T/MM3 1-4.8 08/24/2016 10:37am 2016 10:43am Absolute Monocytes (auto) 0.4 T/MM3 0-0.8 08/24/2016 10:37am 2016 10:43am Absolute Eosinophils (auto) 0.0 T/MM3 0-0.5 08/24/2016 10:37am 2016 10:43am Absolute Basophils (auto) 0.0 T/MM3 0-0.2 08/24/2016 10:37am 2016 10:43am Absolute Immature Granulocyte (auto 0.04 T/MM3 H 0.00-0.03 08/24/2016 10: 37am 08/24/2016 10:43am Neutrophils % (Manual) 78.0 % H 33-66 08/27/2016 4:45am 08/27/2016 6: 32am Band Neutrophils % 3.0 % 0-6 08/26/2016 5:04am 08/26/2016 7:02am Lymphocytes % (Manual) 14.0 % L 23-45 08/27/2016 4:45am 08/27/2016 6: 32am Monocytes % (Manual) 5.0 % 0-9.0 08/27/2016 4:45am 08/27/2016 6:32am Metamyelocytes % 1.0 % H 0-0 08/27/2016 4:45am 08/27/2016 6:32am Reactive Lymphocytes % 2.0 % H 0-0 08/27/2016 4:45am 08/27/2016 6:32am Band Neutrophils # 0.6 T/MM3 08/26/2016 5:04am 08/26/2016 7:02am Absolute Neutrophils (Manual) 14.3 T/MM3 H 1.8-7.7 08/27/2016 4:45am 02/2017 6:32am Lymphocytes # (Manual) 2.6 T/MM3 1-4.8 08/27/2016 4:45am 08/27/2016 6: 32am Monocytes # (Manual) 0.9 T/MM3 H 0-0.8 08/27/2016 4:45am 08/27/2016 6: 32am Metamyelocytes # 0.2 T/MM3 08/27/2016 4:45am 08/27/2016 6:32am Reactive Lymphocytes # 0.4 T/MM3 H 0-0 08/27/2016 4:45am 08/27/2016 6: 32am Red Cell Morphology Comment NORMAL 08/27/2016 4:45am 08/27/2016 6: 32am D-Dimer < 150 NG/ML 0-230 08/24/2016 10:37am 08/24/2016 12:31pm <230 NG/ML D-DU=PRESUMPTIVE NEGATIVE FOR PE OR DVT >230 NG/ML D-DU=ADDITIONAL EVAL FOR PE OR DVT RECOMMENDED Icterus Index < 2 0-7 08/27/2016 4:45am 08/27/2016 5:27am Chemistry Specimen Hemolysis 17 0-25 08/27/2016 4:45am 08/27/2016 5: 27am 0-25: Specimen Exhibited No Hemolysis. Turbidity < 20 0-20 08/27/2016 4:45am 08/27/2016 5:27am Sodium Level 139 MEQ/L 134-144 08/27/2016 4:45am 08/27/2016 5:27am Potassium Level 4.6 MEQ/L 3.6-5 08/27/2016 4:45am 08/27/2016 5:27am Chloride Level 102 MEQ/L 98-107 08/27/2016 4:45am 08/27/2016 5:27am Carbon Dioxide Level 27 MEQ/L 22-30 08/27/2016 4:45am 08/27/2016 5: 27am Anion Gap 10 MEQ/L 5-15 08/27/2016 4:45am 08/27/2016 5:27am Blood Urea Nitrogen 25.0 MG/DL H 7-17 08/27/2016 4:4508/27/2016 5: 27am Creatinine 0.8 MG/DL 0.7-1.2 08/27/2016 4:4508/27/2016 5:27am BUN/Creatinine Ratio 31 RATIO H 6-26 08/27/2016 4:4508/27/2016 5: 27am Glomerular Filtration Rate Calc 75 08/27/2016 4:4508/27/2016 5: 27am Glucose Level 128 MG/DL H 65-110 08/27/2016 4:4508/27/2016 5:27am Calculated Osmolality 274 MOSM/KG 261-280 08/27/2016 4:4508/27/2016 5:27am Calcium Level 9.1 MG/DL 8.4-10.2 08/27/2016 4:4508/27/2016 5:27am Total Bilirubin 0.40 MG/DL 0.20-1.30 08/24/2016 10:3708/24/2016 10: 51am Alkaline Phosphatase 60 U/L 38-126 08/24/2016 10:3708/24/2016 10: 51am Total Protein 7.0 G/DL 6.3-8.2 08/24/2016 10:3708/24/2016 10:51am Albumin 4.1 G/DL 3.5-5.0 08/24/2016 10:3708/24/2016 10:51am Globulin 2.9 G/DL 2.4-3.6 08/24/2016 10:3708/24/2016 10:51am Albumin/Globulin Ratio 1.4 RATIO 1.1-2.2 08/24/2016 10:3708/24/2016 10:51am Aspartate Amino Transf (AST/SGOT) 24 U/L 14-36 08/24/2016 10:3708/24 10:51am Alanine Aminotransferase (ALT/SGPT) 28 U/L 9-52 08/24/2016 10:37am 11/2016 10:51am Troponin I < 0.012 ng/ml 0-0.12 08/24/2016 10:3708/24/2016 11:02am Troponin values with a difference of 55% increase from orginal troponin value represent a true biological DELTA value. (%increase Calc=Orginal Troponin value, divided by subsequent Troponin value, multiplied by 100) Thyroid Stimulating Hormone (TSH) 1.50 MIU/L D 0.47-4.68 08/24/2016 10: 37am 08/24/2016 4:33pm Hemoglobin A1c 5.8 % L 6.1-7.9 08/24/2016 10:37am 08/24/2016 3:19pm < 6.0 NON-DIABETIC RANGE 6.1-7.9 [facility] TARGET RANGE >8.0 ACTION SUGGESTED Adenovirus (PCR) NEGATIVE NEGATIVE 08/24/2016 6:36pm 08/24/2016 8: 02pm Coronavirus Type 229E (PCR) NEGATIVE NEGATIVE 08/24/2016 6:36pm 08/24 8:02pm Coronavirus Type HKU1 (PCR) NEGATIVE NEGATIVE 08/24/2016 6:36pm 08/24 8:02pm Coronavirus Type NL63 (PCR) NEGATIVE NEGATIVE 08/24/2016 6:36pm 08/24 8:02pm Coronavirus Type OC43 (PCR) NEGATIVE NEGATIVE 08/24/2016 6:36pm 08/24 8:02pm Human Metapneumovirus (PCR) NEGATIVE NEGATIVE 08/24/2016 6:36pm 08/24 8:02pm Enterovirus/Rhinovirus (PCR) NEGATIVE NEGATIVE 08/24/2016 6:36pm 11/2016 8:02pm Influenza Virus Type A (PCR) NEGATIVE NEGATIVE 08/24/2016 6:36pm 11/2016 8:02pm Influenza Virus Type B (PCR) NEGATIVE NEGATIVE 08/24/2016 6:36pm 11/2016 8:02pm Parainfluenza Type 1 (PCR) NEGATIVE NEGATIVE 08/24/2016 6:36pm 2016 8:02pm Parainfluenza Type 2 (PCR) NEGATIVE NEGATIVE 08/24/2016 6:36pm 2016 8:02pm Parainfluenza Type 3 (PCR) NEGATIVE NEGATIVE 08/24/2016 6:36pm 2016 8:02pm Parainfluenza Type 4 (PCR) NEGATIVE NEGATIVE 08/24/2016 6:36pm 2016 8:02pm Respiratory Syncytial Virus (PCR) NEGATIVE NEGATIVE 08/24/2016 6:36pm 08/24/2016 8:02pm Bordetella parapertussis DNA (PCR) NEGATIVE NEGATIVE 08/24/2016 6: 36pm 08/24/2016 8:02pm Chlamydia pneumoniae DNA (PCR) NEGATIVE NEGATIVE 08/24/2016 6:36pm 8:02pm Mycoplasma pneumoniae (PCR) NEGATIVE NEGATIVE 08/24/2016 6:36pm 08/24 8:02pm Urine Collection Type CLEANCATCH-MIDSTREAM 08/28/2016 10:10am 08/28 10:16am Urine Color YELLOW YELLOW 08/28/2016 10:10am 08/28/2016 10:16am Urine Turbidity CLEAR CLEAR 08/28/2016 10:10a08/28/2016 10:16am Urine Specific [place] 1.010 L 1.015-1.025 08/28/2016 10:10am 2016 10:16am Urine pH 6.5 5.0-8.0 08/28/2016 10:10a08/28/2016 10:16am Urine Leukocyte Esterase NEGATIVE NEGATIVE 08/28/2016 10:10a2016 10:16am Urine Nitrite NEGATIVE NEGATIVE 08/28/2016 10:10a08/28/2016 10: 16am Urine Protein NEGATIVE NEGATIVE 08/28/2016 10:10a08/28/2016 10: 16am Urine Glucose (UA) 2+ A NEGATIVE 08/28/2016 10:10a08/28/2016 10: 16am Urine Ketones NEGATIVE NEGATIVE 08/28/2016 10:10a08/28/2016 10: 16am Urine Urobilinogen 0.2 EU/DL NORMAL 08/28/2016 10:10a08/28/2016 10: 16am Urine Bilirubin NEGATIVE NEGATIVE 08/28/2016 10:10a08/28/2016 10: 16am Urine Blood 2+ A NEGATIVE 08/28/2016 10:10a08/28/2016 10:16am Urine WBC 0-1 /HPF 0-5 08/28/2016 10:10am 08/28/2016 10:53am Urine RBC 0-1 /HPF 0-3 08/28/2016 10:10am 08/28/2016 10:53am Urine Squamous Epithelial Cells 5-10 08/28/2016 10:10am 08/28/2016 10:53am Urine Bacteria 1+ H NEGATIVE 08/28/2016 10:10am 08/28/2016 10:53am Urine Culture Indicated CULT NOT INDICATED 08/28/2016 10:10am 08/28 10:53am Glucometer 126 mg/dL H 65-110 08/26/2016 11:53am 08/26/2016 1:38pm Name: MALLY MURILLO Unit #: [id number] : 1960 Sex: F Admit Date: 08/25/16 Loc / Svc: MED Discharge Date: DIAGNOSTIC IMAGING REPORT Report #: [id number] [place], [place] Indication: ITS.REASON: allergic reaction/upper airway wheezing PROCEDURE: NECK SOFT TISSUE: Encounter: Initial Comparison: None Findings: No prevertebral or retropharyngeal soft tissue swelling. No acute fracture or subluxation. Normal appearance of the epiglottis. No obvious airway narrowing or deviation. Impression: No acute abnormality seen. . Procedures Procedure Status Date Provider(s) Diagnostic colonoscopy Completed 07/20/16 STEPHEN HOWADR MD, FACS, CWS Egd biopsy single/multiple Completed 07/20/16 STEPHEN HOWARD MD, FACS, CWS 014050"INJECTION, FENTANYL CITRATE, 0.1 MG" Completed 07/20/16 [id number]"INJECTION, FENTANYL CITRATE, 0.1 MG" Completed 07/20/16 [id number]"RINGERS LACTATE INFUSION, UP TO 1000 CC" Completed 07/20/16 Routine venipuncture Completed 07/06/16 Assay of free thyroxine Completed 07/06/16 Assay thyroid stim hormone Completed 07/06/16 Breast tomosynthesis bi Completed 07/18/16 [id number]"SCREENING MAMMOGRAPHY, PRODUCING DIRECT DIGITAL IMAGE Completed Encounters Encounter Location Arrival/Admit Date Discharge/Depart Date Attending Provider Discharged Inpatient [facility] 08/25/16 3:41pm 08/29/16 1:56pm JOHN SANTOS MD Departed [facility] Day [facility] 07/20/16 6:28am 07/20/16 10 :35am STEPHEN HOWARD FACSS Registered Clinic [facility] 07/18/16 8:46am [facility] Registered [facility] 07/06/16 10:39am MARINE KOWALSKI MD
[2016-08-30 15:15] VITALS: BP_SYST 169; BP_SYST 178; BP_DIAS 105; BP_DIAS 91; PULSE 100; PULSE 104; RESP 20; TEMP 96.9; O2SAT 96
[2016-08-30 15:16] VITALS: Ht 162.6 cm; Wt 92.3 kg
--- NOTE | 2016-08-30 15:40 | NUR ---
admit Pt here at 1500 via WC. HX taken, V/S stable on RA with elevated SBP (states she has HTN). Pt stating headache and abd pain on admit, no BM for a week. Pt ambulating well with standby to bathroom, good urine output.
[2016-08-30] MEDS ORDERED: MAG-AL + SIM LIQUID 30 ML UDC PO PRN (15:45)
[2016-08-30] MEDS ORDERED: BISACODYL 10 MG SUPPOSITORY RECTALLY PRN (15:45)
[2016-08-30] MEDS ORDERED: HYDROCODONE/CHLORPHENIRAMINE ER 5 ML LIQUID PO PRN (15:45)
[2016-08-30] MEDS ORDERED: PRN ORDERS MC (15:45)
[2016-08-30] MEDS ORDERED: MILK OF MAGNESIA 30 ML SUSP PO PRN (15:45)
[2016-08-30] MEDS ORDERED: ALBUTEROL/IPRATROPIUM INHAL. 2.5mg-0.5mg/3ml Neb. AEROSOL PRN (15:45)
[2016-08-30] MEDS ORDERED: NITROGLYCERIN 0.4 MG SUBLINGUAL TABLET SL PRN (15:45)
[2016-08-30 16:24] LABS: HCT - HEMATOCRIT 42.3 % (36-46); HGB - HEMOGLOBIN 13.9 GM/DL (12-16); MEAN CORPUSCULAR HGB 30.1 UUG (26-34); MEAN CORPUSCULAR HGB CONC(MCHC 32.9 GM/DL (31-37); MEAN CORPUSCULAR VOLUME 91.6 UM3 (80-100); MEAN PLATELET VOLUME 9.1 UM3 (9.4-12.4); RED BLOOD COUNT 4.62 M/MM3 (4.00-5.20); WBC - WHITE BLOOD COUNT 17.5 T/MM3 (4.5-11.0)
[2016-08-30] MEDS: BENZONATATE 200 MG CAPSULE PO SCH ×2 (16:24→22:35)
[2016-08-30] MEDS: LORAZEPAM 2 MG/ML INJECTION IV PRN ×2 (16:25→22:42)
[2016-08-30] MEDS: DiphenhydrAMINE 50 MG/ML INJECTION IV SCH ×2 (16:28→22:37)
[2016-08-30] MEDS: ONDANSETRON 4mg/2ml INJECTION IV PRN ×2 (16:29→16:31)
[2016-08-30] MEDS: ACETAMINOPHEN 325 MG TABLET PO PRN (16:29)
[2016-08-30] MEDS: FAMOTIDINE 20 MG in NORMAL SALINE 50 ML IV SCH ×2 (16:32→22:36)
[2016-08-30 16:36] LABS: ALBUMIN 3.8 G/DL (3.5-5.0); ALBUMIN/GLOBULIN RATIO 1.5 RATIO (1.1-2.2); ALKALINE PHOSPHATASE 54 U/L (38-126); ALT (SGPT) 34 U/L (9-52); ANION GAP 15 MEQ/L (5-15); AST (SGOT) 30 U/L (14-36); BUN/CREATININE RATIO 34 RATIO (6-26); CHLORIDE 101 MEQ/L (98-107); CO2 - CARBON DIOXIDE 24 MEQ/L (22-30); CREATININE 0.7 MG/DL (0.7-1.2); GLOMERULAR FILTRATION RATE 88; GLUCOSE 142 MG/DL (65-110); POTASSIUM 4.5 MEQ/L (3.6-5); SODIUM 140 MEQ/L (134-144); TOTAL PROTEIN 6.3 G/DL (6.3-8.2)
[2016-08-30 16:46] LABS: BLOOD, URINE 1+ (NEGATIVE); COLOR,URINE YELLOW (YELLOW); LEUKOCYTE ESTERASE ,URINE NEGATIVE (NEGATIVE); NITRITE,URINE NEGATIVE (NEGATIVE); UROBILINOGEN,URINE 0.2 EU/DL (NORMAL)
[2016-08-30 16:57] LABS: BACTERIA,URINE TRACE (NEGATIVE); SQUAMOUS EPITHELIAL CELL,UR 0-5; WBC,URINE 0-1 /HPF (0-5)
[2016-08-30 17:00] VITALS: BP 155/104; PULSE 95; RESP 18
[2016-08-30 17:05] LABS: BAND NEUTROPHILS # 0.7 T/MM3; LYMPHOCYTES # (MANUAL) 2.3 T/MM3 (1-4.8); METAMYELOCYTES # 0.4 T/MM3; MONOCYTES # (MANUAL) 1.4 T/MM3 (0-0.8); NEUTROPHILS #(MANUAL)-ABSOLUTE 12.8 T/MM3 (1.8-7.7); TOTAL CELLS COUNTED 100 %
[2016-08-30] MEDS: NYSTATIN 500,000 units/5ml Susp UD PO SCH ×2 (17:35→22:36)
[2016-08-30] MEDS: ERYTHROMYCIN 250 MG PO SCH (17:35)
[2016-08-30] MEDS: SALINE NASAL SPRAY 45ml EA NOSTRIL SCH ×2 (17:35→22:37)
[2016-08-30 17:40] LABS: C-REACTIVE PROTEIN 5.6 MG/L (0-9)
[2016-08-30] MEDS ORDERED: NORMAL SALINE 500 ML IV PRN (17:45)
[2016-08-30 19:12] VITALS: O2SAT 98
[2016-08-30] MEDS: BUDESONIDE INH.SOLN. 0.5mg/2ml NEB AEROSOL SCH (19:12)
[2016-08-30] MEDS: ALBUTEROL/IPRATROPIUM INHAL. 2.5mg-0.5mg/3ml Neb. AEROSOL SCH (19:12)
[2016-08-30] MEDS: NORMAL SALINE 1,000 ML IV SCH (21:21)
[2016-08-30] MEDS: CETIRIZINE 10 MG TABLET PO SCH (22:35)
[2016-08-30] MEDS: DOCUSATE SODIUM 100 MG CAPSULE PO SCH (22:35)
[2016-08-30] MEDS: GUAIFENESIN DM 600mg/30mg TABLET PO SCH (22:35)
[2016-08-30] MEDS: HYDROCODONE/APAP 5 mg/325 mg TABLET PO PRN (22:43)
--- NOTE | 2016-08-30 23:04 | HPF ---
CHIEF COMPLAINT Shortness of breath, wheezing, fatigue, weakness. HISTORY OF PRESENT ILLNESS Mally Murillo is a 55-year-old female who was recently hospitalized at [facility] from August 24 to the . At that time she presented with dyspnea which was thought to be secondary to allergic reaction (there is question that she had exposure to latex in the days preceding her hospitalization). During the hospitalization she did have increasing wheezing. Initially she was started on IV Solu-Medrol but this was discontinued. While on oral prednisone she seemed to feel more short of breath and congested. Solu-Medrol was restarted and this did seem to help the patient's symptoms. Her wheezing did decrease. She was discharged yesterday to home on prednisone. Today she represents to her primary provider's office for reevaluation. She reports since discharge she has been feeling much, much worse. She continues to have significant cough and chest congestion. She is not producing sputum. Chest wall is sore from all the coughing. She notes persistent frontal headache with sinus congestion. Denies pain in the posterior aspect of her skull. She notes increasing nausea, onset this morning. She has not had emesis but does note her appetite is decreased. She is passing a small amount of gas but not producing stool. Urine has been stable. She is very fatigued - she is not sleeping secondary to the prednisone and cough. During her during hospitalization she was started on Nystatin to cover potential yeast. She feels her mouth symptoms are maybe improving - definitely not getting any worse. While she is very diffusely weak and tired in general, she has not had falls or trauma. She has not noticed skin rash or lesions. She does have increasing anxiety secondary to her being so sick. She was seen in clinic and lungs were quite wheezy on exam. In clinic she did undergo chest x-ray which showed no acute pulmonary pathology. White count was checked and elevated. She was maintaining saturations in the 92%. Given her persistent symptoms, Dr. Da Silva was notified and arrangements and patient was subsequently placed in outpatient observation for further evaluation and treatment. PAST MEDICAL HISTORY Hypertension. Hyperlipidemia. Allergic rhinitis. Anxiety. Depression. Irritable bowel syndrome. Obstructive sleep apnea. Hyperthyroidism. History of asthma as a child. Next history of mono with encephalitis in 1989. History of GI bleed - 2017. Obesity. Colonoscopy/EGD 2006, 2016. Kendra fundoplication. Paraesophageal repair. History of cholecystectomy. History of hysterectomy at age 39. History of right hand surgery in 2016. ALLERGIES Codeine, latex, Demerol, Tapazole, morphine, oxycodone. MEDICATIONS Albuterol HFA 1 puff q.4h. p.r.n. Norvasc 5 mg daily. Tessalon Perles 200 mg t.i.d. Calcium with vitamin D 600 mg daily. Zyrtec 10 mg q.h.s. Benadryl 25 mg q.5h. p.r.n. Colace 100 mg b.i.d. EpiPen p.r.n. Lexapro 20 mg daily. Estrace 1 mg daily. Mucinex DM b.i.d. [place] 5/325 one to two q.4h. p.r.n. pain. Tussionex 5 mL q.12h. p.r.n. cough. Ibuprofen 600 mg q.4h. p.r.n. pain. DuoNeb q.i.d. Lorazepam 0.5 mg q.6h. p.r.n. anxiety. Nystatin 5 mL q.i.d. for thrush. Omeprazole 20 mg a.c. breakfast. Chloraseptic p.r.n. Pravastatin 40 mg q.h.s. Prednisone 60 mg daily. PTU 50 mg daily. Nasal saline two sprays each nostril q.i.d. SOCIAL HISTORY Patient is to her of 30 years (as of this coming November) and they reside in [place], [place]. She does not smoke or use alcohol. She sees Dr. Sommers for primary care. FAMILY HISTORY Patient is adopted - not certain of her family history. REVIEW OF SYSTEMS As above. GENERAL: Notes increased fatigue, some malaise and diffuse weakness. Denies fevers, chills. HEENT: Vision and hearing are stable. Notes increased sinus pressure and congestion. Denies increasing mouth pain or discomfort. RESPIRATORY: As above. CARDIOVASCULAR: Denies chest pressure, pain, palpitations. GI: As above. : Denies urinary pain or discomfort. NEUROLOGIC: Denies unilateral weakness, numbness, slurred speech. PSYCHIATRIC: Notes increasing stress and anxiety from her acute symptoms. SKIN: Denies rash or lesions. Remainder of 10-point review of systems is negative. PHYSICAL EXAMINATION VITAL SIGNS: Height 64 inches, weight 94 kg. BMI 35.6. Temperature 96.9, pulse 104/regular, respiratory rate 20/unlabored. Blood pressure 178/91. 96% room air saturation. GENERAL: Well-developed, well-nourished female who is awake and alert but does appear quite weak and ill. She does appear very tired. HEENT: NC/AT. PERRLA. EOMI. Mucous membranes moist. Slight white coating is noted on tongue. NECK: Supple, midline and without rigidity. LUNGS: Decreased breath sounds bilaterally. I am hearing scattered wheezes. The patient does have a hoarse frequent cough during the interview and examination. CARDIOVASCULAR: Tachycardic rate but regular rhythm. ABDOMEN: Soft, nondistended, nontender. Bowel sounds are not present. EXTREMITIES: No clubbing or cyanosis. I am not appreciating lower extremity edema. SKIN: Warm and dry. No rashes or lesions. NEUROLOGIC: Patient is awake and communicates well. Cranial nerves II-XII appear grossly intact. I am not appreciating focal deficits. PSYCHIATRIC: Patient is awake and alert. She appears quite tired and fatigued. She answers questions appropriately. LABORATORY White blood count is 7.9 with hemoglobin 13.9, hematocrit 42.3, MCV 91.6 and platelets 301,000. Serum sodium is 140, potassium 4.5, chloride 110, CO2 24, BUN 24 with creatinine 0.9, GFR 88 and blood glucose 142. Transaminases are unremarkable. D-dimer is less than 150. UA reveals trace glucose, trace ketone, 1+ blood with 3-5 RBC/HPF. ASSESSMENT 1. Acute dyspnea - suspect underlying reactive airway disease. 2. Wheezing secondary to airway disease. 3. Oral thrush - secondary to steroids - addressed with nystatin. 4. Allergic rhinitis with increased symptoms. 5. Diffuse weakness. 6. Depression/anxiety. 7. Hypertension - currently on Norvasc, prior ARB stopped by Dr. Sommers secondary to her allergic symptoms. 8. Hyperlipidemia - addressed with statin. 9. Hyperglycemia - steroid-induced. Recent HgA1c was unremarkable. 10. Early dehydration. 11. Irritable bowel syndrome - bowels have been slow recently. 12. Obstructive sleep apnea. 13. Obesity with BMI 35.6. PLAN 1. Will place patient in outpatient observation status at [facility] under the care of Dr. Da Silva. 2. In light of the patient's persistent wheezing and symptoms worsening off steroids, will reinstitute Solu-Medrol. Initiate Solu-Medrol at 125 mg IV q.6h. Additionally, will start Benadryl 25 mg IV q.6h. and Pepcid 20 mg IV b.i.d. to add H2 demario effect help with any allergic symptomatology. 3. Start erythromycin to help stomach-emptying. Dr. Sommers wondered about potential for acid-induced symptoms and I feel likely this is lower but erythromycin may be beneficial (as long as she is able to tolerate it without increasing nausea) and may also provide pulmonary coverage.. Of note, [facility] was read out as [facility]. 4. Initiate SCDs and will add Lovenox for DVT prophylaxis. 5. Have Lorazepam 1 mg available IV q.4h. p.r.n. anxiety. 6. Initiate normal saline at 100 mL/hr to provide hydration secondary to patient's nausea and decreased oral drive. 7. Home medications will be continued. 8. Continue with Acapella to help loosen secretions. 9. Check on pending respiratory PCR panel to exclude occult viral pathogen as etiology of her worsening symptoms. 10. With D-dimer was low, this essentially excludes likelihood of pulmonary embolism causing her respiratory symptoms. Additionally, she is maintaining saturations well. I worry about attempting contrast CT at this time as most likely it would cause more allergic-type reactions for this individual. 11. Will recheck CBC, BMP in a.m. 12. Patient's care will be returned to Dr. Sommers at time of discharge from [facility]. MARISA
[2016-08-30 23:15] VITALS: PULSE 87; RESP 18
--- NOTE | 2016-08-30 23:29 | NUR ---
status PRN meds given to help with pain and anxiety, Hibbs and ativan given 2xs. Pt stating that it is helping her to relax and decrease the pain at this time. Urine output good for shift, no BM. Pt did eat soup and toast, no N/V, tolerated well.
[2016-08-31] VITALS (11 sets, daily range): BP systolic 141–176; BP diastolic 86–105; PULSE 85–104; RESP 14–20; TEMP 96.3–97.3; O2SAT 93–98
[2016-08-31] MEDS: DiphenhydrAMINE 50 MG/ML INJECTION IV SCH ×4 (03:11→22:31)
--- NOTE | 2016-08-31 03:38 | NUR ---
RT RT NOTIFIED OF PT NEED FOR PRN BREATHING TREATMENT. FOLLOWING 0 MEDICATIONS PT REPORTS FEELING LIKE SHE IS HAVING WHEEZING. BILATERAL UPPER LOBES WHEEZES NOTED BILATERAL LOWER LOBES COARSE.
[2016-08-31] MEDS ORDERED: AMLODIPINE 5 MG TABLET PO ONE (04:30)
--- NOTE | 2016-08-31 04:32 | NUR ---
PROVIDER CALL DR. GAMEZ CALLED AT [id number]. AT THIS TIME REVIEW WITH PROVIDER PT VITAL SIGN TRENDS NOTING ELEVATED BLOOD PRESSURES. INQUIRED AT THIS TIME IF ADDITIONAL INTERVENTIONS ARE REQUIRED FOR PT AT THIS TIME. DR. GAMEZ REVIEWED PT CHART AND STATES ORDERS WILL BE PLACED FOR INTERVENTION. WILL CONTINUE TO MONITOR FOR NEW ORDERS AND FOLLOW UP WITH PROVIDER NEEDED.
[2016-08-31] MEDS: ERYTHROMYCIN 250 MG PO SCH ×3 (05:51→16:33)
[2016-08-31] MEDS: OMEPRAZOLE 20 MG CAPSULE PO SCH (05:51)
[2016-08-31] MEDS: ACETAMINOPHEN 325 MG TABLET PO PRN ×2 (06:06→22:53)
--- NOTE | 2016-08-31 06:33 | NUR ---
SHIFT SUMMARY PT ALERT ORIENTED X3. PT PLEASANT AND COOPERATIVE. PT AMBULATES WITH MINIMAL STAND BY ASSIST. PT IS ON RA. COUGH AND DYSPNEA REPORTED PT INCREASED SOA AND COUGHING FOLLOWING AMBULATION. PT HAS SMALL AREAS OF RED RASH BILATERAL FOREARMS. PT HAS 22G IV IN LEFT UPPER ARM PATENT INFUSING NS 100ML/HR. PT REPORTED THAT PAIN WAS CONTROLLED UNTIL EARLY IN THE AM WHEN PRN WAS GIVEN FOR HEADACHE SEE EMAR. NOTIFICATION TO PROVIDER REQUIRED FOR PT BLOOD PRESSURE TRENDS. ONE TIME ADDITIONAL DOSE OF PT BLOOD PRESSURE MEDICATION REQUIRED. PT TOLERATED WELL AND BLOOD PRESSURE HAS SINCE COME DOWN SEE EMAR AND VITAL SIGN TRENDS. PT ABLE TO MAKE NEEDS KNOWN.
--- NOTE | 2016-08-31 06:56 | NUR ---
REPORT HANDOFF REPORT TO [facility]
[2016-08-31] MEDS: ALBUTEROL/IPRATROPIUM INHAL. 2.5mg-0.5mg/3ml Neb. AEROSOL SCH ×4 (07:21→18:57)
[2016-08-31] MEDS: NORMAL SALINE 1,000 ML IV SCH ×2 (07:59→19:31)
[2016-08-31] MEDS: HYDROCODONE/APAP 5 mg/325 mg TABLET PO PRN ×2 (08:03→22:53)
[2016-08-31] MEDS: CALCIUM 600mg + VIT D 400 TABLET PO SCH (08:58)
[2016-08-31] MEDS: GUAIFENESIN DM 600mg/30mg TABLET PO SCH ×2 (08:58→22:22)
[2016-08-31] MEDS: BENZONATATE 200 MG CAPSULE PO SCH ×3 (08:58→22:22)
[2016-08-31] MEDS: AMLODIPINE 5 MG TABLET PO SCH (08:59)
[2016-08-31] MEDS: NYSTATIN 500,000 units/5ml Susp UD PO SCH ×4 (08:59→22:26)
[2016-08-31] MEDS: DOCUSATE SODIUM 100 MG CAPSULE PO SCH ×2 (08:59→22:22)
[2016-08-31] MEDS: SALINE NASAL SPRAY 45ml EA NOSTRIL SCH ×4 (09:01→22:26)
[2016-08-31] MEDS: FAMOTIDINE 20 MG in NORMAL SALINE 50 ML IV SCH ×2 (09:02→22:35)
--- NOTE | 2016-08-31 10:53 | NUR ---
NORMAN AUSTIN VISITED PT. CM EXPLAINED ROLE AND PROVIDED CONTACT INFORMATION. PT PLANS TO RETURN HOME POST STAY AT [facility]. PT IS AWARE TO CM IF NEEDS ARISE.
[2016-08-31] MEDS: BUDESONIDE INH.SOLN. 0.5mg/2ml NEB AEROSOL SCH ×2 (11:28→18:57)
[2016-08-31] MEDS: LORAZEPAM 2 MG/ML INJECTION IV PRN ×2 (12:08→19:26)
--- NOTE | 2016-08-31 14:29 | NUR ---
status After 1300 breathing TX, pt expressed very figity and hyper. PRN ativen given and pt stated it helped with relaxation.
--- NOTE | 2016-08-31 15:08 | PNPDOC ---
Subjective Date DATE: 08/31/16 TIME: 14:53 Subjective F/U: Dyspnea, wheezing, Human Metapneumovirus infection. Slightly better - less wheezing with Solu-Medrol. Still harsh, nonproductive cough. Not mobilizing sputum. Chest wall sore. Appetite decreased. Very weak and exhausted. Is ambulating some in room. Not had stool. No nausea. Objective Vital Signs Vital signs Vital Signs Date Time Temp Pulse Resp B/P Pulse Ox O2 Delivery O2 Flow Rate FiO2 08/31/16 11:43 102 08/31/16 11:28 16 98 08/31/16 07:39 96.4 145/97 Room Air Height (Feet): 5 Height (Inches): 4.00 Weight (Kilograms): 93.800 General General Appearance: Alert, Obese, Orientated x 3, Well Nourished, Well Developed, Mild Distress, Other (Looks tired, weak, and ill ) Eyes (Brief) Eyes: FOUND: EOMI, PERRL, NOT FOUND: scleral icterus ENMT (Brief) ENMT: FOUND: hearing intact, mucosa moist Neck (Brief) Neck: FOUND: midline, NOT FOUND: nuchal rigidity, spasm Respiratory (Brief) Respiratory: FOUND: wheezes (Faint scattered bilateral), NOT FOUND: clear all hurley (Coarse, harsh cough with deep breathing. Decreased air movement ) Cardiovascular (Brief) Cardiac: FOUND: pedal edema (Trace), regular rate, regular rhythm Abdomen (Brief) Abdominal: NOT FOUND: BS normo active x4 (Decreased ), soft, tender Extremities (Brief) Extremity : Side: Bilateral Extremity: leg Extremity Finding: FOUND: edema (Trace ) Musculoskeletal (Brief) Musculoskeletal: FOUND: extremities move equally, NOT FOUND: deformity, spasm Integumentary (Brief) Integumentary: FOUND: dry, warm Neurologic (Brief) Neurological: FOUND: cranial 2-12 intact, motor (Intact ) Psychiatric (Brief) Psychiatric: FOUND: alert, attentive, normal affect, oriented Laboratory Laboratory Laboratory Tests 08/30/16 16:16 Laboratory Tests 08/30/16 16:16 Assessment & Plan Problems: (1) Infection due to human metapneumovirus (hMPV) Status: Acute (2) Dyspnea Status: Acute Qualifiers: Dyspnea type: shortness of breath Qualified Codes: R06.02 - Shortness of breath (3) Wheezing Status: Acute (4) Asthma Status: Acute (5) Weakness Status: Acute (6) Thrush Status: Acute Assessment & Plan: POA (7) Allergic rhinitis Status: Chronic Qualifiers: Allergic rhinitis trigger: unspecified Allergic rhinitis seasonality: unspecified seasonality Qualified Codes: J30.9 - Allergic rhinitis, unspecified (8) HTN (hypertension) Status: Chronic Qualifiers: Hypertension type: essential hypertension Qualified Codes: I10 - Essential (primary) hypertension (9) Hyperlipidemia Status: Chronic Qualifiers: Hyperlipidemia type: unspecified Qualified Codes: E78.5 - Hyperlipidemia, unspecified (10) Hyperglycemia Status: Acute Assessment & Plan: Secondary to steroids (11) Hyperthyroidism Status: Chronic (12) Irritable bowel syndrome Status: Chronic (13) Obstructive sleep apnea Status: Chronic (14) Obesity Status: Chronic Qualifiers: Obesity type: due to excess calories Obesity severity: non-morbid Qualified Codes: E66.09 - Other obesity due to excess calories Plan/Intensity of Service Decrease Solu-Medrol to 62.5mg IV q 6 hours. Will decrease IVF to 75 cc/hr to minimize risk for edema with steroids. Continue IV Pepcid and Benadryl. Continue DuoNeb - may hold budesonide due to thrush. Continue Nystatin. Encourage activities. Recheck CMP and CBC in am. Discussed about discharge to home - pt does not feel up to discharge. Will continue with observational status and reassess tomorrow. Case discussed with CM. Time spent with pt care 25 minutes. DVT Prophylaxis: SCD'S Code Status Full Code Hospital Course Summary Disclaimer The hospital course summary below is not to be considered part of the above Progress Note. Hospital Course Summary 08/[address] patient in outpatient observation status at [facility] under the care of Dr. Da Silva. In light of the patient's persistent wheezing and symptoms worsening off steroids, will reinstitute Solu-Medrol. Initiate Solu-Medrol at 125 mg IV q.6h. Additionally, will start Benadryl 25mg IV q.6h. and Pepcid 20 mg IV b.i.d. to add H2 demario effect help with any allergic symptomatology. Start erythromycin to help stomach-emptying. Dr. Sommers wondered about potential for acid-induced symptoms and I feel likely this is lower but erythromycin may be beneficial (as long as she is able to tolerate it without increasing nausea) and may also provide pulmonary coverage.. Of note, chest x- ray from [facility] was read out as negative. Initiate SCDs and will add Lovenox for DVT prophylaxis. Have Lorazepam 1 mg available IV q.4h. p.r.n. anxiety. Initiate normal saline at 100 mL/hr to provide hydration secondary to patient's nausea and decreased oral drive. Home medications will be continued. Continue with Acapella to help loosen secretions. Check on pending respiratory PCR panel to exclude occult viral pathogen as etiology of her worsening symptoms. With D-dimer was low, this essentially excludes likelihood of pulmonary embolism causing her respiratory symptoms. Additionally, she is maintaining saturations well. I worry about attempting contrast CT at this time as most likely it would cause more allergic-type reactions for this individual. Patient's care will be returned to Dr. Sommers at time of discharge from [facility]. 08/31 Slightly better - less wheezing with Solu-Medrol. Still harsh, nonproductive cough. Not mobilizing sputum. Chest wall sore. Appetite decreased. Very weak and exhausted. Is ambulating some in room. Not had stool. No nausea. Decrease Solu-Medrol to 62.5mg IV q 6 hours. Will decrease IVF to 75 cc/hr to minimize risk for edema with steroids. Continue IV Pepcid and Benadryl. Continue DuoNeb - may hold budesonide due to thrush. Continue Nystatin. Encourage activities. Recheck CMP and CBC in am. Discussed about discharge to home - pt does not feel up to discharge. Will continue with observational status and reassess tomorrow. JOHN DA SILVA MD Aug 31, 2016 14:56
--- NOTE | 2016-08-31 18:43 | NUR ---
status Pt A/O x3, V/S stable on RA. Resting well, tessalon perles helping with cough, 1x tussinex given. Pt eating and drinking well, no N/V. PRN bowel motivating meds given and pt up ambulating in halls, still no BM today. Urine output good for shift. Pain stated in head and neck, PRN meds given, pt wanting them sparingly R/T constipation. Pt remains on droplet precautions, in her nelson walk she knows to wear mask at this time. Info given on metapnemovirus, as pt requested.
[2016-08-31] MEDS: CETIRIZINE 10 MG TABLET PO SCH (22:22)
[2016-09-01] MEDS: DiphenhydrAMINE 50 MG/ML INJECTION IV SCH ×3 (04:00→15:44)
--- NOTE | 2016-09-01 05:36 | NUR ---
SUMMARY PT ALERT AND ORIENTED. VSS. AT [facility] IN ROOM. REMAINS ON DROPLET PRECAUTIONS. UPPER LT ARM IV INFILTRATED, REMOVED. NEW IV STARTED BY MILAD COX, MATERIAL LOADER, RT FOREARM IV FLUSHES WELL, RUNNING NS @ 75 MLS/HR. REPORTED HEADACHE 08/27, WAS GIVEN TYLENOL, PT ALSO REQUESTED NORCO FOR HER COUGH SHE SAID THAT IS WHAT SHES BEEN TAKING IT FOR.
[2016-09-01 05:46] LABS: HCT - HEMATOCRIT 40.1 % (36-46); MEAN CORPUSCULAR HGB 29.5 UUG (26-34); MEAN CORPUSCULAR HGB CONC(MCHC 32.4 GM/DL (31-37); MEAN CORPUSCULAR VOLUME 91.1 UM3 (80-100); MEAN PLATELET VOLUME 9.3 UM3 (9.4-12.4); WBC - WHITE BLOOD COUNT 19.4 T/MM3 (4.5-11.0)
[2016-09-01 06:09] LABS: BAND NEUTROPHILS # 0.6 T/MM3; LYMPHOCYTES # (MANUAL) 2.3 T/MM3 (1-4.8); MONOCYTES # (MANUAL) 1.4 T/MM3 (0-0.8); NEUTROPHILS #(MANUAL)-ABSOLUTE 15.1 T/MM3 (1.8-7.7); TOTAL CELLS COUNTED 100 %
[2016-09-01 06:14] LABS: ALBUMIN 3.2 G/DL (3.5-5.0); ALBUMIN/GLOBULIN RATIO 1.4 RATIO (1.1-2.2); ALKALINE PHOSPHATASE 43 U/L (38-126); ALT (SGPT) 27 U/L (9-52); ANION GAP 14 MEQ/L (5-15); AST (SGOT) 19 U/L (14-36); BUN/CREATININE RATIO 30 RATIO (6-26); CALCIUM 8.3 MG/DL (8.4-10.2); CHLORIDE 101 MEQ/L (98-107); CO2 - CARBON DIOXIDE 24 MEQ/L (22-30); CREATININE 0.6 MG/DL (0.7-1.2); GLOMERULAR FILTRATION RATE 105; GLUCOSE 148 MG/DL (65-110); POTASSIUM 4.4 MEQ/L (3.6-5); SODIUM 139 MEQ/L (134-144); TOTAL PROTEIN 5.5 G/DL (6.3-8.2)
[2016-09-01] MEDS: ERYTHROMYCIN 250 MG PO SCH ×3 (06:16→17:15)
[2016-09-01] MEDS: OMEPRAZOLE 20 MG CAPSULE PO SCH (06:16)
[2016-09-01 07:29] VITALS: BP 151/88; PULSE 91; RESP 16; TEMP 97; O2SAT 93
[2016-09-01] MEDS: BENZONATATE 200 MG CAPSULE PO SCH ×2 (08:46→15:00)
[2016-09-01] MEDS: NYSTATIN 500,000 units/5ml Susp UD PO SCH ×3 (08:46→17:15)
[2016-09-01] MEDS: CALCIUM 600mg + VIT D 400 TABLET PO SCH (08:46)
[2016-09-01] MEDS: GUAIFENESIN DM 600mg/30mg TABLET PO SCH (08:47)
[2016-09-01] MEDS: AMLODIPINE 5 MG TABLET PO SCH (08:47)
[2016-09-01] MEDS: DOCUSATE SODIUM 100 MG CAPSULE PO SCH (08:47)
[2016-09-01] MEDS: SALINE NASAL SPRAY 45ml EA NOSTRIL SCH ×3 (08:49→17:16)
[2016-09-01] MEDS: FAMOTIDINE 20 MG in NORMAL SALINE 50 ML IV SCH (08:49)
[2016-09-01] MEDS: BUDESONIDE INH.SOLN. 0.5mg/2ml NEB AEROSOL SCH (09:10)
[2016-09-01] MEDS: ALBUTEROL/IPRATROPIUM INHAL. 2.5mg-0.5mg/3ml Neb. AEROSOL SCH ×3 (09:10→17:09)
[2016-09-01 09:22] VITALS: O2SAT 96
[2016-09-01] MEDS: LORAZEPAM 2 MG/ML INJECTION IV PRN (10:00)
[2016-09-01] MEDS: NORMAL SALINE 1,000 ML IV SCH (12:15)
[2016-09-01] MEDS ORDERED: POLYETHYL.GLYCOL 3350 PACKET 17gm PO PRN (12:30)
[2016-09-01] MEDS ORDERED: MAGNESIUM CITRATE 296 ML SOLUTION PO ONE (12:30)
[2016-09-01] MEDS ORDERED: FLEET PHOSPHO-SODA 133 ML ENEMA RECTALLY PRN (12:30)
[2016-09-01] MEDS ORDERED: MILK OF MAGNESIA 30 ML SUSP PO PRN (12:30)
[2016-09-01] MEDS: POLYETHYL.GLYCOL 3350 PACKET 17gm PO SCH ×2 (12:40→18:12)
[2016-09-01] MEDS: ONDANSETRON 4mg/2ml INJECTION IV PRN (13:33)
--- NOTE | 2016-09-01 13:33 | NUR ---
CM SPOKE WITH PT. INTRODUCED SELF, PROVIDED CONTACT INFO. EXPLAINED IN CASE SHE IS RELEASED SOON, THIS WORKER COULD ASSIST WITH DC NEEDS/QUESTIONS. SHE SAID SHE DID NOT HAVE ANY QUESTIONS/NEEDS AT THIS TIME. SHE SAID SHE FELT "HORRIBLE" AND WEAK.
[2016-09-01 16:00] VITALS: BP 151/94; PULSE 99; RESP 18; TEMP 97.3; O2SAT 94
[2016-09-01] MEDS ORDERED: PredniSONE 20 MG TABLET PO ONE (19:00)
[2016-09-01] MEDS ORDERED: POLY17PO18 PO (19:03)
[2016-09-01] MEDS ORDERED: ERYT250C68 PO (19:03)
[2016-09-01] MEDS ORDERED: BISA10SU8 RECTALLY (19:03)
--- NOTE | 2016-09-01 19:15 | NUR ---
status Pt A/O x3, V/S stable on RA. Pt still having concern with no BM, gave multiple bowel motivating meds with no results today. Urine output good for shift. Pt ambulating in halls today, denies dizziness. Pt rated at 4-5/10, denies wanting any PRN meds r/t constipation. Pt did have N/V feeling and cramping after mag citrate, PRN zofran given and pt stated felt better. After talking with , pt has decided to go home tonight instead of am tomorrow. Dr Corey notified and scripts/ DC process started.
--- NOTE | 2016-09-01 20:37 | DSPDOC ---
General Date Date DATE: 09/01/16 TIME: 20:24 Attending Physician Monico Da Silva MD Admitting Physician Monico Da Silva MD Consulting Physician Admitting Diagnosis Dyspnea, Wheezing Discharge Diagnosis Human Metapneumovirus respiratory infection Asthma with exacerbation Thrush Hyperglycemia due to steroids Hypertension Obstructive sleep apnea Laboratory Laboratory Tests Test 09/01/16 04:39 White Blood Count 19.4T/MM3 (4.5-11.0) Red Blood Count 4.40M/MM3 (4.00-5.20) Hemoglobin 13.0GM/DL (12-16) Hematocrit 40.1% (36-46) Mean Corpuscular Volume 91.1UM3 (80-100) Mean Corpuscular Hemoglobin 29.5UUG (26-34) Mean Corpuscular Hemoglobin Concent 32.4GM/DL (31-37) RDW Standard Deviation 44.7FL (36.9-50.2) Platelet Count 261T/MM3 (130-400) Mean Platelet Volume 9.3UM3 (9.4-12.4) Immature Granulocyte % (Auto) % (0.0-0.5) Neutrophils (%) (Auto) % (33-66) Lymphocytes (%) (Auto) % (23-45) Monocytes (%) (Auto) % (0-9.0) Eosinophils (%) (Auto) % (0-4) Basophils (%) (Auto) % (0-2) Absolute Immature Granulocyte (auto T/MM3 (0.00-0.03) Absolute Neutrophils (auto) T/MM3 (1.8-7.7) Absolute Lymphocytes (auto) T/MM3 (1-4.8) Absolute Monocytes (auto) T/MM3 (0-0.8) Absolute Eosinophils (auto) T/MM3 (0-0.5) Absolute Basophils (auto) T/MM3 (0-0.2) Neutrophils % (Manual) 78.0% (33-66) Band Neutrophils % 3.0% (0-6) Lymphocytes % (Manual) 12.0% (23-45) Monocytes % (Manual) 7.0% (0-9.0) Absolute Neutrophils (Manual) 15.1T/MM3 (1.8-7.7) Band Neutrophils # 0.6T/MM3 Lymphocytes # (Manual) 2.3T/MM3 (1-4.8) Monocytes # (Manual) 1.4T/MM3 (0-0.8) Red Cell Morphology Comment Normal Turbidity < 20 (0-20) Sodium Level 139MEQ/L (134-144) Potassium Level 4.4MEQ/L (3.6-5) Chloride Level 101MEQ/L (98-107) Carbon Dioxide Level 24MEQ/L (22-30) Anion Gap 14MEQ/L (5-15) Blood Urea Nitrogen 18.0MG/DL (7-17) Creatinine 0.6MG/DL (0.7-1.2) Glomerular Filtration Rate Calc 105 BUN/Creatinine Ratio 30RATIO (6-26) Glucose Level 148MG/DL (65-110) Calculated Osmolality 273MOSM/KG (261-280) Calcium Level 8.3MG/DL (8.4-10.2) Total Bilirubin 0.50MG/DL (0.20-1.30) Icterus Index < 2 (0-7) Aspartate Amino Transf (AST/SGOT) 19U/L (14-36) Alanine Aminotransferase (ALT/SGPT) 27U/L (9-52) Alkaline Phosphatase 43U/L (38-126) Total Protein 5.5G/DL (6.3-8.2) Albumin 3.2G/DL (3.5-5.0) Globulin 2.3G/DL (2.4-3.6) Albumin/Globulin Ratio 1.4RATIO (1.1-2.2) Chemistry Specimen Hemolysis < 15 (0-25) D-dimer < 150 Microbiology Respiratory viral panel positive human Metapneumovirus History of Present Illness Mally Murillo is a 55-year-old female who was recently hospitalized at [facility] from August 24 to the . At that time she presented with dyspnea which was thought to be secondary to allergic reaction (there is question that she had exposure to latex in the days preceding her hospitalization). During the hospitalization she did have increasing wheezing. Initially she was started on IV Solu-Medrol but this was discontinued. While on oral prednisone she seemed to feel more short of breath and congested. Solu-Medrol was restarted and this did seem to help the patient's symptoms. Her wheezing did decrease. She was discharged yesterday to home on prednisone. Today she represents to her primary provider's office for reevaluation. She reports since discharge she has been feeling much, much worse. She continues to have significant cough and chest congestion. She is not producing sputum. Chest wall is sore from all the coughing. She notes persistent frontal headache with sinus congestion. Denies pain in the posterior aspect of her skull. She notes increasing nausea, onset this morning. She has not had emesis but does note her appetite is decreased. She is passing a small amount of gas but not producing stool. Urine has been stable. She is very fatigued - she is not sleeping secondary to the prednisone and cough. During her during hospitalization she was started on Nystatin to cover potential yeast. She feels her mouth symptoms are maybe improving - definitely not getting any worse. While she is very diffusely weak and tired in general, she has not had falls or trauma. She has not noticed skin rash or lesions. She does have increasing anxiety secondary to her being so sick. She was seen in clinic and lungs were quite wheezy on exam. In clinic she did undergo chest x-ray which showed no acute pulmonary pathology. White count was checked and elevated. She was maintaining saturations in the 92%. Given her persistent symptoms, Dr. Da Silva was notified and arrangements and patient was subsequently placed in outpatient observation for further evaluation and treatment. Hospital Course 08/[address] patient in outpatient observation status at [facility] under the care of Dr. Da Silva. In light of the patient's persistent wheezing and symptoms worsening off steroids, will reinstitute Solu-Medrol. Initiate Solu-Medrol at 125 mg IV q.6h. Additionally, will start Benadryl 25mg IV q.6h. and Pepcid 20 mg IV b.i.d. to add H2 demario effect help with any allergic symptomatology. Start erythromycin to help stomach-emptying. Dr. Sommers wondered about potential for acid-induced symptoms and I feel likely this is lower but erythromycin may be beneficial (as long as she is able to tolerate it without increasing nausea) and may also provide pulmonary coverage.. Of note, chest x- ray from [facility] was read out as negative. Initiate SCDs and will add Lovenox for DVT prophylaxis. Have Lorazepam 1 mg available IV q.4h. p.r.n. anxiety. Initiate normal saline at 100 mL/hr to provide hydration secondary to patient's nausea and decreased oral drive. Home medications will be continued. Continue with Acapella to help loosen secretions. Check on pending respiratory PCR panel to exclude occult viral pathogen as etiology of her worsening symptoms. With D-dimer was low, this essentially excludes likelihood of pulmonary embolism causing her respiratory symptoms. Additionally, she is maintaining saturations well. I worry about attempting contrast CT at this time as most likely it would cause more allergic-type reactions for this individual. Patient's care will be returned to Dr. Sommers at time of discharge from [facility]. 08/31 Slightly better - less wheezing with Solu-Medrol. Still harsh, nonproductive cough. Not mobilizing sputum. Chest wall sore. Appetite decreased. Very weak and exhausted. Is ambulating some in room. Not had stool. No nausea. Decrease Solu-Medrol to 62.5mg IV q 6 hours. Will decrease IVF to 75 cc/hr to minimize risk for edema with steroids. Continue IV Pepcid and Benadryl. Continue DuoNeb - may hold budesonide due to thrush. Continue Nystatin. Encourage activities. Recheck CMP and CBC in am. Discussed about discharge to home - pt does not feel up to discharge. Will continue with observational status and reassess tomorrow. 09/01/16-discharge Mally reports persistent nonproductive cough and dyspnea with intermittent wheezing. Her appetite is slightly better but remains decreased from baseline. Constipation is an additional concern is she's not had a bowel movement since her initial hospitalization. She's had no vomiting or abdominal pain but describes occasional minor nausea. On examination the patient is alert. Oxygen saturation 94% on room air Sclerae anicteric. Respirations are nonlabored with good airflow and breath sounds are clear except on forced expiration whether is some faint expiratory wheezing. Peak flow was 330 prior to treatment and 305 posttreatment. Stable for conversion to oral steroids at 60 mg now and resume previously prescribed taper. Erythromycin was initiated for gastroparesis/reflux but may incidentally cover for atypical organisms. Stable for discharge home with medications previously prescribed including bronchodilators, cough suppressants , and prednisone. Erythromycin prescription written. Medications reviewed with patient and her . Additionally I've advised Mally that cough will probably persist for several weeks. MiraLAX dose increased for constipation and she received one bottle of magnesium citrate earlier in the day today for constipation. Asked to follow up with Dr. Sommers early next week for reassessment. Problems: (1) Infection due to human metapneumovirus (hMPV) Status: Acute (2) Dyspnea Status: Acute (3) Wheezing Status: Acute (4) Asthma Status: Acute Assessment & Plan: With exacerbation (5) Weakness Status: Acute (6) Thrush Status: Acute Assessment & Plan: POA (7) Allergic rhinitis Status: Chronic (8) HTN (hypertension) Status: Chronic (9) Hyperlipidemia Status: Chronic (10) Hyperglycemia Status: Acute Assessment & Plan: Secondary to steroids (11) Hyperthyroidism Status: Chronic (12) Irritable bowel syndrome Status: Chronic (13) Obstructive sleep apnea Status: Chronic (14) Obesity Status: Chronic Code Status Full Code Home Meds Active Scripts Polyethylene Glycol 3350 (Healthylax) 17 Gm Powd.pack, 34 G PO BID for CONSTIPATION for 14 Days Prov:COURT SOTO MD 09/01/16 Bisacodyl (Bisacodyl) 10 Mg Supp.rect, 10 MG RECTALLY DAILY Y for CONSTIPATION, #5 Prov:COURT SOTO MD 09/01/16 Erythromycin Base (Erythromycin) 250 Mg Capsule.dr, 250 MG PO AC for REFLUX for 30 Days, #90 CAP Prov:COURT SOTO MD 09/01/16 Nystatin (Nystatin) 100,000 Unit/1 Ml Oral.susp, 5 ML PO QID for thrush, #200 ML Prov:MONICO DA SILVA MD 08/29/16 Docusate Sodium (Colace) 100 Mg Capsule, 100 MG PO BID for STOOL SOFTENING, #50 CAP Prov:MONICO DA SILVA MD 08/29/16 Phenol (Chloraseptic) 20 Ml Davis, 3 SPRAY PO Q2H Y for SORE THROAT , #1 BOTTLE Prov:MONICO DA SILVA MD 08/29/16 Sodium Chloride (Deep Sea) 450 Davis/45 Ml Davis, 2 SPRAY EA NOSTRIL QID, #1 BOTTLE Prov:MONICO DA SILVA MD 08/29/16 Hydrocodone/Chlorphen P-Stirex (Tussionex Pennkinetic Susp) 115 Ml Karuna.er.12h, 5 ML PO Q12HR Y for COUGH, #100 Prov:MONICO DA SILVA MD 08/29/16 Guaifenesin/Dextromethorphan (Mucinex Dm ER 600-30 mg Tablet) 1 Each Tab.er.12h , 1 TAB PO Q12HR, #30 TAB Prov:MONICO DA SILVA MD 08/29/16 Benzonatate (Benzonatate) 200 Mg Capsule, 200 MG PO TID for COUGH, #30 CAP Prov:MONICO DA SILVA MD 08/29/16 Hydrocodone/Acetaminophen ([place] 5-325 Tablet) 5-325 Tablet, 1-2 TAB PO Q4H Y for PAIN, #30 TAB Prov:MONICO DA SILVA MD 08/29/16 Ipratropium/Albuterol Sulfate (Iprat-Albut 0.5-3(2.5) mg/3 ml) 3 Ml Ampul.neb, 3 ML AEROSOL RTQID for SHORTNESS OF AIR/WHEEZING, #40 AMP Prov:MONICO DA SILVA MD 08/29/16 Diphenhydramine HCl (Benadryl) 25 Mg Capsule, 25 MG PO Q4HR Y for ALLERY SYMPTOMS, #30 CAP Prov:MONICO DA SILVA MD 08/29/16 Cetirizine HCl (Cetirizine HCl) 10 Mg Tablet, 10 MG PO HS, #30 TAB Prov:MONICO DA SILVA MD 08/29/16 Epinephrine (Epipen) 0.3 Mg/0.3 Ml Auto.injct, 0.3 MG IM PRN for ALLERY SYMPTOMS , #2 Prov:INDRA COWAN [employer] SAL[employer] 08/26/16 Reported Medications Prednisone (Prednisone) 20 Mg Tablet, 60 MG PO TAPER Q3D 08/24/16 Lorazepam (Lorazepam) 0.5 Mg Tablet, 0.5 MG PO Q6H Y for ANXIETY 08/24/16 Ibuprofen (Ibuprofen) 200 Mg Tablet, 600 MG PO Q4H Y for PAIN 08/24/16 Estradiol (Estrace) 1 Mg Tablet, 1 MG PO DAILY 08/24/16 Escitalopram Oxalate (Escitalopram Oxalate) 20 Mg Tablet, 20 MG PO DAILY 08/24/16 Amlodipine Besylate (Amlodipine Besylate) 5 Mg Tablet, 5 MG PO DAILY 08/24/16 Albuterol Sulfate (Ventolin HFA 90 mcg/actuation) 18 Gm Hfa.aer.ad, 1 PUFF ORAL INH Q4H Y for SHORTNESS OF AIR/WHEEZING 08/24/16 Omeprazole (Omeprazole) 20 Mg Capsule.dr, 20 MG PO ACB 07/19/16 Pravastatin Sodium (Pravastatin Sodium) 40 Mg Tablet, 40 MG PO HS 02/22/10 Propylthiouracil (Propylthiouracil) 50 Mg Tablet, 50 MG PO DAILY 02/22/10 Calcium Carbonate/Vitamin D3 (Calcium + D 600 Mg Tablet) 1 Tab Tablet, 1 TAB PO DAILY 02/22/10 Discontinued Reported Medications Losartan Potassium (Losartan Potassium) 100 Mg Tablet, 100 MG PO DAILY 08/24/16 Guaifenesin/Dextromethorphan (Robitussin Yqhxj-Xdfuj-Vrhx Dm) 1 Each Capsule, 2 CAP PO Q4HR Y for CONSTIPATION 08/24/16 Face to Face Encounter I met with patient on the day of dismissal and discussed follow up appointments , medications, and safety plan. Discharge Disposition Home Copies To 1: KELLEY SOMMERS MD Documentation Requirements BMI Low or High Assoc. dx for low or high BMI: Obesity 30-34.9 COURT SOTO MD Sep 01, 2016 20:33
--- NOTE | 2016-09-01 20:43 | NUR ---
DISCHARGE PT IN GOOD CONDITION UPON DISCHARGE. PT GIVEN DISCHARGE INSTRUCTION, IV REMOVED. PT PUSHED VIA WHEELCHAIR TO MAIN ENTRANCE BY MARIE FULTON.
--- NOTE | 2016-09-04 13:30 | NUR ---
CM CM LVM
--- NOTE | 2016-09-05 15:25 | NUR ---
CM CM LVM
== END 2016-09-01 20:25 | disposition home or self-care (01) ==
LOC: MED 14:54
PROVIDERS: ADMIT Hospitalist; ATTEND Hospitalist
DX: J06.9 Acute upper respiratory infection, unspecified (principal); B97.81 Human metapneumovirus as the cause of diseases classified elsewhere; J45.901 Unspecified asthma with (acute) exacerbation; B37.0 Candidal stomatitis; T38.0X5A Adverse effect of glucocorticoids and synthetic analogues, initial encounter; R73.9 Hyperglycemia, unspecified; I10 Essential (primary) hypertension; E78.5 Hyperlipidemia, unspecified; G47.33 Obstructive sleep apnea (adult) (pediatric); E05.90 Thyrotoxicosis, unspecified without thyrotoxic crisis or storm; K58.9 Irritable bowel syndrome, unspecified; E66.9 Obesity, unspecified; Z68.34 Body mass index [BMI] 34.0-34.9, adult; F41.9 Anxiety disorder, unspecified; F32.9 Major depressive disorder, single episode, unspecified; E86.0 Dehydration; Z86.61 Personal history of infections of the central nervous system; Z79.1 Long term (current) use of non-steroidal anti-inflammatories (NSAID); Z79.899 Other long term (current) drug therapy
CPT/HCPCS: 36415; 80053; 81001; 85025; 85379; 86140; 87486; 87581; 87633; 87798; 94010; 94640; 94668; 96361; 96365; 96366; 96375; 96376; 99218; J1200; J2060; J2405; J2930; J7030; J7050; J7512; J7626